=== PATIENT | female | born 1950 | race Asian ===

== ENCOUNTER 2020-03-17 13:46 | Outpatient (REF) | payer MEDICARE, OTHER, SELFPAY ==
[2020-03-17 16:32] LABS: MANUAL DIFF FLAG NO
[2020-03-17 16:46] LABS: Iron 231 mcg/dL (30-160); Total Iron Binding Capacity < 248 mcg/dL (228-428); Unsaturated Iron Binding < 17 ug/dL
[2020-03-17 16:49] LABS: Basophils Absolute Auto 0.1 X10*3/uL (0.0-0.2); Basophils Percent Auto 1.6 % (0-2); Eosinophils Absolute Auto 0.3 X10*3/uL (0.0-0.4); Eosinophils Percent Auto 5.3 % (0-4); Hemoglobin 9.9 g/dl (12.0-16.0); Imm Gran Abs Auto 0.02 X10*3/uL (0.00-0.03); Imm Gran Pct Auto 0.4 % (0.0-0.4); Lymphocytes Absolute Auto 1.4 X10*3/uL (1.2-4.9); Lymphocytes Percent Auto 26.6 % (20-40); Mean Corpuscular HGB Conc 32.8 g/dl (31.0-35.0); Mean Corpuscular Hemoglobin 35.9 pg (27.0-33.0); Mean Corpuscular Volume 109.4 fL (80-98); Mean Platelet Volume 11.1 fL (9.4-12.3); Monocytes Absolute Auto 0.5 X10*3/uL (0.1-1.2); Neutrophils Absolute Auto 2.9 X10*3/uL (2.0-8.3); Neutrophils Percent Auto 57.1 % (45-73); Platelet Count 104 X10*3/uL (160-400); Red Blood Count 2.76 X10*6/uL (4.20-5.50); Red Cell Distribution Width 15.8 % (11.0-16.0); White Blood Count 5.1 X10*3/uL (4.8-10.8)
[2020-03-17 16:50] LABS: Hematocrit 30.2 % (37-47)
[2020-03-17 17:17] LABS: Ferritin 526 ng/mL (10-250)
== END 2020-03-17 13:47 | disposition home or self-care (01) ==
LOC: HO.HMGCLDS 13:46
PROVIDERS: PCP Nurse Practitioner Family; Visit Provider Nurse Practitioner Family
DX: D64.9 Anemia, unspecified (principal)
CPT/HCPCS: 36415; 82728; 83540; 85025

== ENCOUNTER → 2020-06-26 10:18 | Outpatient (BNVA) | payer MEDICARE, OTHER, SELFPAY | PROVIDERS: PCP Nurse Practitioner Family; Visit Provider Internal Medicine Gastroenterology | DX: Z76.89 Persons encountering health services in other specified circumstances (principal) | CPT/HCPCS: 99212 ==

== ENCOUNTER 2020-06-27 14:58 | Inpatient (IN) | payer MEDICARE, OTHER, SELFPAY ==
--- NOTE | 2020-06-27 11:38 | US_ITS ---
EXAMINATION: US ABDOMEN COMPLETE CLINICAL INFORMATION: Cirrhosis. COMPARISON: Previous CT of the abdomen and pelvis December 2019, abdominal ultrasound November 2019 and MRI May 2018 TECHNIQUE: Real-time imaging of the abdominal viscera. FINDINGS: PANCREAS: Not well visualized due to bowel gas ABDOMINAL AORTA: The proximal segment is normal in caliber. The mid and distal segments are not well visualized due to bowel gas INFERIOR VENA CAVA: Visualized portions are normal. LIVER: The liver appears cirrhotic. The liver is small with increased heterogeneous liver echotexture and lobulated contour. No focal liver lesion is seen. No flow is seen in the main portal vein. GALLBLADDER: The gallbladder is enlarged. The gallbladder wall is slightly thickened measuring 0.4 cm. There is sludge or small gallstones in the gallbladder. This is similar to previous exams. COMMON BILE DUCT: Normal in caliber measuring 0.8 cm in diameter. RIGHT KIDNEY: Normal. No hydronephrosis. No renal calculi or focal parenchymal lesions. The kidney measures 12.3 cm in maximum dimension. LEFT KIDNEY: There are peripelvic cysts. No hydronephrosis. No renal calculi or mass. The kidney measures 11.3 cm in maximum dimension. SPLEEN: Upper normal in size The spleen measures 12.5 cm in maximum dimension. FREE FLUID: There is a small amount of ascites seen around the liver or a There are varices. US/US abdomen complete IMPRESSION: Cirrhotic-appearing liver. No focal liver lesion seen. Small amount of ascites. Dedicated Doppler exam was not performed however no flow is seen in the main portal vein. Distended gallbladder with small amount of sludge or small stones and mild gallbladder wall thickening. This is similar to previous exams. Limited utilization of the pancreas and aorta. Left renal peripelvic cysts.
[2020-06-27 14:52] LABS: Ammonia 70 umol/L (13-55)
[2020-06-27 15:01] LABS: MANUAL DIFF FLAG NO
[2020-06-27 15:16] LABS: Basophils Absolute Auto 0.1 X10*3/uL (0.0-0.2); Basophils Percent Auto 1.2 % (0-2); Eosinophils Absolute Auto 0.1 X10*3/uL (0.0-0.4); Eosinophils Percent Auto 1.6 % (0-4); Hematocrit 31.4 % (37-47); Hemoglobin 10.2 g/dl (12.0-16.0); Imm Gran Abs Auto 0.03 X10*3/uL (0.00-0.03); Imm Gran Pct Auto 0.4 % (0.0-0.4); Lymphocytes Absolute Auto 1.4 X10*3/uL (1.2-4.9); Lymphocytes Percent Auto 20.5 % (20-40); Mean Corpuscular HGB Conc 32.5 g/dl (31.0-35.0); Mean Corpuscular Hemoglobin 35.7 pg (27.0-33.0); Mean Corpuscular Volume 109.8 fL (80-98); Mean Platelet Volume 10.1 fL (9.4-12.3); Monocytes Absolute Auto 0.9 X10*3/uL (0.1-1.2); Monocytes Percent Auto 12.8 % (2-11); Neutrophils Absolute Auto 4.3 X10*3/uL (2.0-8.3); Neutrophils Percent Auto 63.5 % (45-73); Platelet Count 121 X10*3/uL (160-400); Red Blood Count 2.86 X10*6/uL (4.20-5.50); Red Cell Distribution Width 15.3 % (11.0-16.0); White Blood Count 6.7 X10*3/uL (4.8-10.8)
[2020-06-27 15:43] LABS: Alanine Aminotransferase 33 U/L (0-31); Albumin Level 2.2 g/dL (3.5-5.0); Alkaline Phosphatase 130 U/L (39-117); Anion Gap 12 (12-20); Aspartate Amino Transferase 74 U/L (5-31); Bilirubin Total 5.9 mg/dL (0.0-1.0); Blood Urea Nitrogen 16 mg/dL (9-16); Calcium 7.9 mg/dL (8.4-10.2); Carbon Dioxide 27 mmol/L (22-29); Chloride 105 mmol/L (96-108); Estimated Glomerular Filt Rate > 60; Glucose Fasting 96 mg/dL (60-99); Sodium 140 mmol/L (135-145); Total Protein 6.7 g/dL (6.5-8.0)
[2020-06-27 16:00] LABS: Vitamin D 25-OH Total 12.9 ng/mL (>30)
[2020-06-27 16:03] LABS: TSH reflex Free T4 1.33 mIU/mL (0.32-4.0)
[2020-06-27 16:44] LABS: Folate 14.3 ng/mL (> or = 4.0); Vitamin B12 > 2000 pg/mL (200-900)
[2020-06-27 16:54] VITALS: BP 122/50; PULSE 93; RESP 18; TEMP 36.9; O2SAT 99
--- NOTE | 2020-06-27 17:16 | XR_ITS ---
EXAMINATION: XR CHEST CLINICAL INFORMATION: Rule out pulmonary edema COMPARISON: 02/20/2020 TECHNIQUE: Frontal view of the chest was obtained. FINDINGS: Lung volumes are decreased from the prior study. There is mild interstitial prominence. No pleural effusion. Cardiomediastinal silhouette unchanged. Degenerative changes of the shoulders. XR/XR chest 1V IMPRESSION: Lung volumes are decreased from the prior study. There is mildly increased interstitial prominence which could reflect bronchovascular crowding or pulmonary venous hypertension. Viral interstitial pneumonitis could be considered in the appropriate clinical setting.
--- NOTE | 2020-06-27 17:18 | ED_ITS ---
HPI - General Adult General Chief complaint: Abdominal Pain Time Seen by Provider: 06/27/20 16:40 Source: patient Mode of arrival: ambulatory Limitations: no limitations History of Present Illness HPI narrative: Patient comes to emergency room by private vehicle, patient was asked by her technical sales manager Dr. Zimmerman, to come to the emergency room. Yesterday, patient had an appoint with Dr. Zimmerman, this morning an ultrasound of the liver was done (Abdominal US showed: Cirrhotic-appearing liver. No focal liver lesion seen. Small amount of ascites. Dedicated Doppler exam was not performed however no flow is seen in the main portal vein. Distended gallbladder with small amount of sludge or small stones and mild gallbladder wall thickening. This is similar to previous exams. Limited utilization of the pancreas and aorta. Left renal peripelvic cysts.) It was noted during the ultrasound that the patient seemed lethargic, weak and therefore sent to the emergency room for further evaluation and treatment. Pat ient states that she feels weak, has diffuse abdominal pain, states it is worse when she drinks or eats. Patient states starting in May of 2020, she has noticed that her legs have been getting swollen, patient has already been prescribed Lasix. Patient has right upper extremity chronic swelling, patient states is secondary due to mastectomy. MD complaint: Abdominal pain, lower extremity swelling Related Data Home Medications Medication Instructions Recorded Confirmed cholecalciferol (vitamin D3) 25 25 mcg PO DAILY 06/26/20 06/26/20 mcg (1,000 unit) tablet mecobalamin (vitamin B12) 1,000 1,000 mcg PO DAILY 06/26/20 06/26/20 mcg chewable tablet multivitamin 1 tab PO DAILY 06/26/20 06/26/20 Previous Rx's Medication Instructions Recorded furosemide 20 mg tablet 20 mg PO QAM 30 Days #60 tab 06/26/20 polyethylene glycol 3350 17 17 g PO DAILY 30 Days #510 g 06/26/20 gram/dose oral powder spironolactone 50 mg tablet 50 mg PO QAM 30 Days #30 tab 06/26/20 Allergies Allergy/AdvReac Type Severity Reaction Status Date / Time Sulfa (Sulfonamide Allergy Unknown UNKNOWN Unverified 06/26/20 10:30 Antibiotics) [SULFA (SULFONAMIDE ANTIBIOTICS)] Omeprazole Allergy Unknown Coughing Uncoded 06/26/20 10:30 steroids Allergy Unknown hallucinations, Uncoded 06/26/20 10:30 mouth sores STEROIDS AdvReac Severe HALLUCINATI Uncoded 06/26/20 10:30 ONS/NAUSEA/ DIZZINESS Certain chemo medication AdvReac Unknown Hospitalize Uncoded 06/26/20 10:30 d Review of Systems Review of Systems: Constitutional : Denies fever or chills, complaining of generalized weakness, no malaise ENT/Mouth : No Hearing loss, No Ear Pain, No Nasal Congestion, No Sinus Pain, No Hoarseness, No sore throat, No Rhinorrhea, No Swallowing Difficulty Eyes: No Eye Pain, No Swelling, No Redness, No Foreign Body, No Discharge, No Vision Changes Cardiovascular : No Chest Pain, No SOB, No Dyspnea on Exertion, No Orthopnea, No Edema, No Palpitations Respiratory : No Cough, No Sputum, No Wheezing, No Smoke Exposure, No Dyspnea Gastrointestinal : No Nausea, No Vomiting, No Diarrhea, complaining of constipation, diffuse abdominal discomfort, occasionally feeling sharp pains Genitourinary : No Dysuria, No Urinary Frequency, No Hematuria, No Urinary Incontinence, No Urgency, No Flank Pain, No Urinary Flow Changes, No Hesitancy Musculoskeletal : No joint pain, No Myalgias, No Joint Swelling Skin : No Skin Lesions, No rash Neuro : No Weakness, No Numbness, No Paresthesias, No Loss of Consciousness, No Dizziness, No Headache Psych : No Anxiety/Panic, No Depression, No SI/HI/AH/VH, No Social Issues, Heme/Lymph: No Bruising, No Bleeding,No Lymphadenopathy Endocrine : No Polyuria, No Polydipsia, No Temperature Intolerance [facility] Past Medical History Medical History (Updated 06/27/20 @ 22:30 by Bouchra Mancilla MD) Cirrhosis of liver Surgical History History of esophagogastroduodenoscopy (EGD) Hx of colonoscopy Hx of right mastectomy Family History Family History (Updated 06/26/20 @ 10:36 by MELO Mcnally) Father No problems noted. Mother History of renal pelvis cancer Brother No problems noted. Sister No problems noted. Son No problems noted. Daughter No problems noted. Social History Social History (Updated 06/26/20 @ 10:37 by MELO Mcnally) Household Members: Spouse Alcohol intake: never Smoking Status: Never smoker Current occupational status: retired Physical Exam Vital Signs: Vital Signs: Last Vital Signs Temp 97.9 F 06/27/20 21:49 Pulse 92 06/27/20 21:49 Resp 18 06/27/20 21:49 BP 128/47 L 06/27/20 21:49 Pulse Ox 92 06/27/20 21:49 Body Mass Index 38.5 Appearance: Alert. Oriented X3. No acute distress. Seems fatigued Eyes: Pupils equal, round and reactive to light. ENT: Pharynx normal. Neck: Normal inspection. Neck supple. No lymph nodes noted. No crepitus CVS: Normal heart rate and rhythm. Pulses normal. Normal S1 and S2 Respiratory: No respiratory distress. Breath sounds normal. No Wheezing. No rales Abdomen: Soft , diffuse abdominal tenderness to deep palpation, negative Moreno sign, mild to moderate abdominal distension Skin: Skin warm and dry. Normal skin color. Normal skin turgor. Extremities: +3 bilateral lower extremity edema from the feet to the knees Neuro: Oriented X 3. No motor deficit. No sensory deficit. Moving all e xtermities. No slurred speech. Course Course Course Narrative: Patient has a lactic acid of 2.1, white blood cell count is within normal limits, patient's elevated lactic acid is likely secondary to h epatic pathology rather than sepsis. Dr. Zimmerman is at bedside with the patient, CT scan is still pending. I will touch base with Dr. Zimmerman once we have the results. Patient will need oral lactulose for constipation and for elevated ammonia. There is a suspicion for portal vein thrombosis. CT scan results show chronic portal vein thrombosis, I discussed the CT scan findings and the patient with Dr. Zimmerman, at this time, anticoagulation is not recommended. Patient will be admitted. I discussed the patient with Dr. Vázquez. Recommendations the patient is with diuretics lactulose, have a [place] [facility] paracentesis, cardiology consult for elevated BNP and echocardiogram. Medical Decision Making Lab Data Result diagrams: 06/27/20 14:35 06/27/20 14:35 Labs: Lab Results 06/27/20 06/27/20 06/27/20 Range/Units 14:34 14:35 14:35 WBC 6.7 (4.8-10.8) X10*3/uL RBC 2.86 L (4.20-5.50) X10*6/uL Hgb 10.2 L (12.0-16.0) g/dl Hct 31.4 L (37-47) % MCV 109.8 H (80-98) fL MCH 35.7 H (27.0-33.0) pg MCHC 32.5 (31.0-35.0) g/dl RDW 15.3 (11.0-16.0) % Plt Count 121 L (160-400) X10*3/uL MPV 10.1 (9.4-12.3) fL Immature Gran % (Auto) 0.4 (0.0-0.4) % Neut % (Auto) 63.5 (45-73) % Lymph % (Auto) 20.5 (20-40) % Cross % (Auto) 12.8 H (2-11) % Eos % (Auto) 1.6 (0-4) % Baso % (Auto) 1.2 (0-2) % Lymph # (Auto) 1.4 (1.2-4.9) X10*3/uL Cross # (Auto) 0.9 (0.1-1.2) X10*3/uL Eos # (Auto) 0.1 (0.0-0.4) X10*3/uL Baso # (Auto) 0.1 (0.0-0.2) X10*3/uL Abs Immat Gran (auto) 0.03 (0.00-0.03) X10*3/uL Absolute Neuts (auto) 4.3 (2.0-8.3) X10*3/uL Absolute Nucleated RBC 0.000 (0.0-0.012) X10*3/uL Nucleated RBC % (auto) 0.0 (0.0-0.2) /100WBC PT (10.8-13.0) SEC INR (0.9-1.1) Sodium 140 (135-145) mmol/L Potassium 4.0 (3.3-5.1) mmol/l Chloride 105 (96-108) mmol/L Carbon Dioxide 27 (22-29) mmol/L Anion Gap 12 (12-20) BUN 16 (9-16) mg/dL Creatinine 0.84 (0.5-1.4) mg/dL Estim Creat Clear Calc TNP Estimated GFR > 60 Random Glucose TNP Fasting Glucose 96 (60-99) mg/dL Lactic Acid (0.5-2.0) mmol/L Lactic Acid Fup @ 2Hr (0.5-2.0) mmol/L Calcium 7.9 L (8.4-10.2) mg/dL Total Bilirubin 5.9 H (0.0-1.0) mg/dL AST 74 H (5-31) U/L ALT 33 H (0-31) U/L Alkaline Phosphatase 130 H D (39-117) U/L Ammonia 70 H (13-55) umol/L B-Natriuretic Peptide (<100) pg/mL Total Protein 6.7 (6.5-8.0) g/dL Albumin 2.2 L (3.5-5.0) g/dL Vitamin B12 (200-900) pg/mL 25-OH Vitamin D Total (>30) ng/mL Folate (> or = 4.0) ng/mL TSH 1.33 (0.32-4.0) mIU/mL COVID-19 ([facility]) (Negative) COVID-19 Clin Com 06/27/20 06/27/20 06/27/20 Range/Units 14:35 14:35 17:35 WBC (4.8-10.8) X10*3/uL RBC (4.20-5.50) X10*6/uL Hgb (12.0-16.0) g/dl Hct (37-47) % MCV (80-98) fL MCH (27.0-33.0) pg MCHC (31.0-35.0) g/dl RDW (11.0-16.0) % Plt Count (160-400) X10*3/uL MPV (9.4-12.3) fL Immature Gran % (Auto) (0.0-0.4) % Neut % (Auto) (45-73) % Lymph % (Auto) (20-40) % Cross % (Auto) (2-11) % Eos % (Auto) (0-4) % Baso % (Auto) (0-2) % Lymph # (Auto) (1.2-4.9) X10*3/uL Cross # (Auto) (0.1-1.2) X10*3/uL Eos # (Auto) (0.0-0.4) X10*3/uL Baso # (Auto) (0.0-0.2) X10*3/uL Abs Immat Gran (auto) (0.00-0.03) X10*3/uL Absolute Neuts (auto) (2.0-8.3) X10*3/uL Absolute Nucleated RBC (0.0-0.012) X10*3/uL Nucleated RBC % (auto) (0.0-0.2) /100WBC PT 27.2 H (10.8-13.0) SEC INR 2.3 H (0.9-1.1) Sodium (135-145) mmol/L Potassium (3.3-5.1) mmol/l Chloride (96-108) mmol/L Carbon Dioxide (22-29) mmol/L Anion Gap (12-20) BUN (9-16) mg/dL Creatinine (0.5-1.4) mg/dL Estim Creat Clear Calc Estimated GFR Random Glucose Fasting Glucose (60-99) mg/dL Lactic Acid (0.5-2.0) mmol/L Lactic Acid Fup @ 2Hr (0.5-2.0) mmol/L Calcium (8.4-10.2) mg/dL Total Bilirubin (0.0-1.0) mg/dL AST (5-31) U/L ALT (0-31) U/L Alkaline Phosphatase (39-117) U/L Ammonia (13-55) umol/L B-Natriuretic Peptide (<100) pg/mL Total Protein (6.5-8.0) g/dL Albumin (3.5-5.0) g/dL Vitamin B12 > 2000 H (200-900) pg/mL 25-OH Vitamin D Total 12.9 (>30) ng/mL Folate 14.3 (> or = 4.0) ng/mL TSH (0.32-4.0) mIU/mL COVID-19 ([facility]) (Negative) COVID-19 Clin Com 06/27/20 06/27/20 06/27/20 Range/Units 17:35 17:35 17:35 WBC (4.8-10.8) X10*3/uL RBC (4.20-5.50) X10*6/uL Hgb (12.0-16.0) g/dl Hct (37-47) % MCV (80-98) fL MCH (27.0-33.0) pg MCHC (31.0-35.0) g/dl RDW (11.0-16.0) % Plt Count (160-400) X10*3/uL MPV (9.4-12.3) fL Immature Gran % (Auto) (0.0-0.4) % Neut % (Auto) (45-73) % Lymph % (Auto) (20-40) % Cross % (Auto) (2-11) % Eos % (Auto) (0-4) % Baso % (Auto) (0-2) % Lymph # (Auto) (1.2-4.9) X10*3/uL Cross # (Auto) (0.1-1.2) X10*3/uL Eos # (Auto) (0.0-0.4) X10*3/uL Baso # (Auto) (0.0-0.2) X10*3/uL Abs Immat Gran (auto) (0.00-0.03) X10*3/uL Absolute Neuts (auto) (2.0-8.3) X10*3/uL Absolute Nucleated RBC (0.0-0.012) X10*3/uL Nucleated RBC % (auto) (0.0-0.2) /100WBC PT (10.8-13.0) SEC INR (0.9-1.1) Sodium (135-145) mmol/L Potassium (3.3-5.1) mmol/l Chloride (96-108) mmol/L Carbon Dioxide (22-29) mmol/L Anion Gap (12-20) BUN (9-16) mg/dL Creatinine (0.5-1.4) mg/dL Estim Creat Clear Calc Estimated GFR Random Glucose Fasting Glucose (60-99) mg/dL Lactic Acid 2.1 H* (0.5-2.0) mmol/L Lactic Acid Fup @ 2Hr (0.5-2.0) mmol/L Calcium (8.4-10.2) mg/dL Total Bilirubin (0.0-1.0) mg/dL AST (5-31) U/L ALT (0-31) U/L Alkaline Phosphatase (39-117) U/L Ammonia (13-55) umol/L B-Natriuretic Peptide 135 H (<100) pg/mL Total Protein (6.5-8.0) g/dL Albumin (3.5-5.0) g/dL Vitamin B12 (200-900) pg/mL 25-OH Vitamin D Total (>30) ng/mL Folate (> or = 4.0) ng/mL TSH (0.32-4.0) mIU/mL COVID-19 ([facility]) Negative (Negative) COVID-19 Clin Com See Note 06/27/20 Range/Units 20:24 WBC (4.8-10.8) X10*3/uL RBC (4.20-5.50) X10*6/uL Hgb (12.0-16.0) g/dl Hct (37-47) % MCV (80-98) fL MCH (27.0-33.0) pg MCHC (31.0-35.0) g/dl RDW (11.0-16.0) % Plt Count (160-400) X10*3/uL MPV (9.4-12.3) fL Immature Gran % (Auto) (0.0-0.4) % Neut % (Auto) (45-73) % Lymph % (Auto) (20-40) % Cross % (Auto) (2-11) % Eos % (Auto) (0-4) % Baso % (Auto) (0-2) % Lymph # (Auto) (1.2-4.9) X10*3/uL Cross # (Auto) (0.1-1.2) X10*3/uL Eos # (Auto) (0.0-0.4) X10*3/uL Baso # (Auto) (0.0-0.2) X10*3/uL Abs Immat Gran (auto) (0.00-0.03) X10*3/uL Absolute Neuts (auto) (2.0-8.3) X10*3/uL Absolute Nucleated RBC (0.0-0.012) X10*3/uL Nucleated RBC % (auto) (0.0-0.2) /100WBC PT (10.8-13.0) SEC INR (0.9-1.1) Sodium (135-145) mmol/L Potassium (3.3-5.1) mmol/l Chloride (96-108) mmol/L Carbon Dioxide (22-29) mmol/L Anion Gap (12-20) BUN (9-16) mg/dL Creatinine (0.5-1.4) mg/dL Estim Creat Clear Calc Estimated GFR Random Glucose Fasting Glucose (60-99) mg/dL Lactic Acid (0.5-2.0) mmol/L Lactic Acid Fup @ 2Hr 1.3 (0.5-2.0) mmol/L Calcium (8.4-10.2) mg/dL Total Bilirubin (0.0-1.0) mg/dL AST (5-31) U/L ALT (0-31) U/L Alkaline Phosphatase (39-117) U/L Ammonia (13-55) umol/L B-Natriuretic Peptide (<100) pg/mL Total Protein (6.5-8.0) g/dL Albumin (3.5-5.0) g/dL Vitamin B12 (200-900) pg/mL 25-OH Vitamin D Total (>30) ng/mL Folate (> or = 4.0) ng/mL TSH (0.32-4.0) mIU/mL COVID-19 ([facility]) (Negative) COVID-19 Clin Com Imaging Data Chest x-ray: Radiologist's impression: FINDINGS: Lung volumes are decreased from the prior study. There is mild interstitial prominence. No pleural effusion. Cardiomediastinal silhouette unchanged. Degenerative changes of the shoulders. XR/XR chest 1V IMPRESSION: Lung volumes are decreased from the prior study. There is mildly increased interstitial prominence which could reflect bronchovascular crowding or pulmonary venous hypertension. Viral interstitial pneumonitis could be considered in the appropriate clinical setting. Discharge Plan Discharge Clinical Impression: Portal vein thrombosis CHF (congestive heart failure) Qualifiers: Heart failure type: unspecified Heart failure chronicity: unspecified Qualified Code(s): I50.9 - Heart failure, unspecified Patient Disposition: Admitted As Inpatient
[2020-06-27 17:20] VITALS: BP 122/49; PULSE 88; RESP 18; TEMP 36.9; O2SAT 98; BMI 38.5
--- NOTE | 2020-06-27 17:44 | CT_ITS ---
EXAMINATION: CT ABDOMEN AND PELVIS WITH CONTRAST CLINICAL INFORMATION: Rule out portal vein thrombosis. COMPARISON: Ultrasound earlier today. Noncontrast CT 12/19/2019 TECHNIQUE: Multidetector volumetric images were obtained from the superior aspect of the liver through the pubic symphysis following administration 85 mL of Omnipaque 350 intravenous contrast. Sagittal and coronal reformatted images were obtained on the technologist's workstation. Oral contrast: No This CT examination was performed using dose optimization techniques as appropriate, variously including the following: *Automated exposure control *Adjustment of mA and/or kV according to patient size (this includes techniques or standardized protocols for targeted exams where dose is matched to indication/reason for exam; i.e. extremities or head) *Use of iterative reconstruction technique DLP: 869 mGy-cm FINDINGS: LUNG BASES: Small right, trace left pleural effusions and associated atelectasis. LIVER, GALLBLADDER, AND BILIARY TREE: The liver is shrunken with a nodular contour consistent with cirrhosis. The gallbladder is significantly distended. Tiny dependent gallstones are present. Although there is a contrast opacified vessel in the willard hepatis which could represent the main portal vein, there are additional varices present. Moreover, the main portal vein is actually smaller in caliber than the left portal vein. The appearance suggests cavernous transformation of the portal vein from chronic portal vein thrombosis; the contrast opacified vessel in the willard hepatis may represent a prominent collateral rather than the main portal vein. There are no contrast-enhanced CT or MRI exams available to confirm the acuity of this. There is a tiny 5 mm cyst along the lateral periphery of the right lower lobe, present previously. PANCREAS: Unremarkable. SPLEEN: Unremarkable. ADRENAL GLANDS: Unremarkable. KIDNEYS AND URETERS: Likely bilateral renal parapelvic cysts. Symmetric bilateral renal enhancement. BLADDER: Unremarkable. GASTROINTESTINAL TRACT: There is wall thickening of the distal esophagus likely due to underdistention. Stomach and small bowel are nondilated. There is wall thickening of the right colon likely due to portal colopathy. ABDOMINAL WALL: Severe diffuse anasarca there is a left periumbilical hernia containing fluid and fat. LYMPH NODES: Normal. VASCULAR: Extensive varices are present. There are innumerable splenic varices and a likely splenorenal shunt. There are paraesophageal and gastric varices. There are varices in the anterior omentum. Moderate volume of ascites is present. PELVIC VISCERA: The uterus and adnexa are unremarkable. OSSEOUS STRUCTURES: Unremarkable. CT/CT abdomen pelvis w con IMPRESSION: Shrunken, nodular liver suggesting cirrhosis. There are extensive varices with innumerable splenic varices and a likely splenorenal shunt. There are paraesophageal, gastric, and abdominal varices. Although there is a contrast opacified vessel in the willard hepatis which could represent the main portal vein, there are additional varices present. Moreover, the main portal vein is actually smaller in caliber than the left portal vein. The appearance suggests cavernous transformation of the portal vein from chronic portal vein thrombosis; the contrast opacified vessel in the willard hepatis may represent a prominent collateral rather than the main portal vein. There are no contrast-enhanced CT or MRI exams available to confirm the acuity of this. Moderate ascites. Pleural effusions. Anasarca.
[2020-06-27 17:49] LABS: INTERNATIONAL NORM RATIO 2.3 (0.9-1.1); Prothrombin Time 27.2 SEC (10.8-13.0)
[2020-06-27 18:05] LABS: COVID-19 Test Negative (Negative)
[2020-06-27 18:11] LABS: B Type Natriuretic Peptide 135 pg/mL (<100)
[2020-06-27 18:20] LABS: Lactic Acid 2.1 mmol/L (0.5-2.0)
[2020-06-27 19:12] VITALS: BP 127/51; PULSE 87; RESP 16; TEMP 36.6; O2SAT 98
[2020-06-27] MEDS: 0.9 % Sodium Chloride 1,000 ML 200 ML IVCONT (19:18)
[2020-06-27 19:40] LABS: Reflex Lactate? Lactic Acid Added
[2020-06-27 20:53] LABS: ~Lactic Acid-LAB USE ONLY 1.3 mmol/L (0.5-2.0)
[2020-06-27] MEDS: Diatrizoate Meglumine, Sodium 30 ML SOLUTION PO (20:53)
[2020-06-27] MEDS: iohexoL 350 MG/ML 100 ML INFUS..BTL IV (20:53)
[2020-06-27 21:49] VITALS: BP 128/47; PULSE 92; RESP 18; TEMP 36.6; O2SAT 92
[2020-06-27] MEDS: Furosemide 40 MG/4 ML VIAL IVPUSH (23:02)
--- NOTE | 2020-06-27 23:15 | PC.NURSE ---
ASSUMED CARE OF PT. PT AWAITING FOR ROOM ASSIGNMENT. WILL CONTINUE TO MONITOR PT.
[2020-06-28] VITALS (8 sets, daily range): BP systolic 126–143; BP diastolic 50–67; PULSE 84–94; RESP 16–21; TEMP 36.5–37.1; O2SAT 96–98
--- NOTE | 2020-06-28 01:27 | PC.NURSE ---
ASSUMED CARE OF PT. PT RESTING IN STRETCHER IN NAD. PT REMAINS ALERT, RESPIRATIONS EASY, N/L. SKIN W/D. PT AWAITING FURTHER ORDERS FOR ADMISSION. PT DENIES ANY COMPLAINTS AT THIS FABIAN.
--- NOTE | 2020-06-28 03:35 | PC.NURSE ---
PT AWAITING FOR ROOM ASSIGNMENT. PT UP TO RESTROOM WITH STEADY GAIT W/O ASSISTANCE, DENIES ANY COMPLAINTS, RESPIRATIONS EASY, N/L. SKIN W/D. WILL CONTINUE TO MONITOR PT.
--- NOTE | 2020-06-28 03:54 | PM.IMHP ---
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 She has cirrhosis and also had increasing leg edema and poor PO intake recently. Patient states she can barely keep sips of water down and hasn't eaten in several days. There was concern for portal vein thrombosis on ultrasound today so CT scan was done in ED which did suggest thrombosis in the portal vein. Per Dr Zimmerman it could be chronic so patient was not started on anticoagulation this evening. Patient feels constipated and has fatigue. Also noted mild dyspnea and poor PO intake. No vomiting but has nausea. No fevers or chills. Review of Systems Constitutional: Constitutional: Reports anorexia, Reports malaise and Reports poor appetite Eyes: Comments: No changes to her vision ENT: Comments: No difficulty swallowing Cardiovascular: Cardiovascular: Reports leg edema Comments: No chest pain Respiratory: Comments: Dyspnea noted, especially with activity. No cough. Gastrointestinal: Comments: nausea, constipation, increased abd girth all noted. Musculoskeletal: Musculoskeletal: Reports no additional musculoskeletal complaints Psychiatric: Comments: No anxiety Hematologic/Lymphatic: Comments: No bruising [facility] Medical History Cirrhosis of liver Family History Father No problems noted. Mother History of renal pelvis cancer Brother No problems noted. Sister No problems noted. Son No problems noted. Daughter No problems noted. Family history: reviewed and not pertinent Surgical History History of esophagogastroduodenoscopy (EGD) Hx of colonoscopy Hx of right mastectomy Social History Household Members: Spouse Alcohol intake: never Smoking Status: Never smoker Current occupational status: retired Meds Allergies Allergy/AdvReac Type Severity Reaction Status Date / Time Sulfa (Sulfonamide Allergy Unknown UNKNOWN Unverified 06/26/20 10:30 Antibiotics) [SULFA (SULFONAMIDE ANTIBIOTICS)] Omeprazole Allergy Unknown Coughing Uncoded 06/26/20 10:30 steroids Allergy Unknown hallucinations, Uncoded 06/26/20 10:30 mouth sores STEROIDS AdvReac Severe HALLUCINATI Uncoded 06/26/20 10:30 ONS/NAUSEA/ DIZZINESS Certain chemo medication AdvReac Unknown Hospitalize Uncoded 06/26/20 10:30 d Home Medications Medication Instructions Recorded Confirmed Type cholecalciferol (vitamin D3) 25 25 mcg PO DAILY 06/26/20 06/26/20 History mcg (1,000 unit) tablet mecobalamin (vitamin B12) 1,000 1,000 mcg PO DAILY 06/26/20 06/26/20 History mcg chewable tablet multivitamin 1 tab PO DAILY 06/26/20 06/26/20 History Physical Exam Vital Signs and Narrative: Vital Signs: Last Vital Signs Temp 98.3 F 06/28/20 02:00 Pulse 93 06/28/20 02:00 Resp 18 06/28/20 02:00 BP 131/62 06/28/20 02:00 Pulse Ox 96 06/28/20 02:00 Body Mass Index 38.5 Const: General: cooperative, no acute distress and tired appearing HENMT: Head: Yes normal to inspection Mouth: Normal oral and palatal mucosa present Eyes: Other: No scleral icterus. Neck: Other: Supple, no lymphadenopathy noted Resp: Other: Decreased breath sounds at lung bases bilaterally, no insp crackles or exp wheezes. Effort & Inspection: normal respiratory effort Cardio: Other: Systolic murmur 2/6 RUSB Rate: regular rate Rhythm: regular rhythm Heart sounds: S1 normal heart sound present and S2 normal heart sound present GI: Other: Abdomen soft, somewhat distended, no guarding or masses appreciated. No tense ascites. Auscultation: normal bowel sounds Skin: Other: No jaundice General skin exam: no rashes or lesions noted Neuro: Other: Does not appear confused. Seems fatigued but not lethargic. Extrem: Other: No asterixis. Legs have significant pitting edema bilaterally Psych: Other: Not agitated Results Labs CBC and Chem 7: 06/27/20 14:35 06/27/20 14:35 Labs: Laboratory Results - last 24 hr 06/27/20 06/27/20 06/27/20 14:34 14:35 14:35 MCV 109.8 H MCH 35.7 H MCHC 32.5 RDW 15.3 Plt Count 121 L MPV 10.1 Immature Gran % (Auto) 0.4 Neut % (Auto) 63.5 Lymph % (Auto) 20.5 [place] % (Auto) 12.8 H Eos % (Auto) 1.6 Baso % (Auto) 1.2 Lymph # (Auto) 1.4 [place] # (Auto) 0.9 Eos # (Auto) 0.1 Baso # (Auto) 0.1 Abs Immat Gran (auto) 0.03 Absolute Neuts (auto) 4.3 Absolute Nucleated RBC 0.000 Nucleated RBC % (auto) 0.0 PT INR Anion Gap 12 Estim Creat Clear Calc TNP Estimated GFR > 60 Random Glucose TNP Fasting Glucose 96 Lactic Acid Lactic Acid Fup @ 2Hr Calcium 7.9 L Total Bilirubin 5.9 H AST 74 H ALT 33 H Alkaline Phosphatase 130 H D Ammonia 70 H B-Natriuretic Peptide Total Protein 6.7 Albumin 2.2 L Vitamin B12 25-OH Vitamin D Total Folate TSH 1.33 COVID-19 (JAS) COVID-Dodreams 06/27/20 06/27/20 06/27/20 14:35 14:35 17:35 MCV MCH MCHC RDW Plt Count MPV Immature Gran % (Auto) Neut % (Auto) Lymph % (Auto) [place] % (Auto) Eos % (Auto) Baso % (Auto) Lymph # (Auto) [place] # (Auto) Eos # (Auto) Baso # (Auto) Abs Immat Gran (auto) Absolute Neuts (auto) Absolute Nucleated RBC Nucleated RBC % (auto) PT 27.2 H INR 2.3 H Anion Gap Estim Creat Clear Calc Estimated GFR Random Glucose Fasting Glucose Lactic Acid Lactic Acid Fup @ 2Hr Calcium Total Bilirubin AST ALT Alkaline Phosphatase Ammonia B-Natriuretic Peptide Total Protein Albumin Vitamin B12 > 2000 H 25-OH Vitamin D Total 12.9 Folate 14.3 TSH COVID-19 (JAS) COVID-Dodreams 06/27/20 06/27/20 06/27/20 17:35 17:35 17:35 MCV MCH MCHC RDW Plt Count MPV Immature Gran % (Auto) Neut % (Auto) Lymph % (Auto) [place] % (Auto) Eos % (Auto) Baso % (Auto) Lymph # (Auto) [place] # (Auto) Eos # (Auto) Baso # (Auto) Abs Immat Gran (auto) Absolute Neuts (auto) Absolute Nucleated RBC Nucleated RBC % (auto) PT INR Anion Gap Estim Creat Clear Calc Estimated GFR Random Glucose Fasting Glucose Lactic Acid 2.1 H* Lactic Acid Fup @ 2Hr Calcium Total Bilirubin AST ALT Alkaline Phosphatase Ammonia B-Natriuretic Peptide 135 H Total Protein Albumin Vitamin B12 25-OH Vitamin D Total Folate TSH COVID-19 (JAS) Negative COVID-19 Clin Com See Note 06/27/20 20:24 MCV MCH MCHC RDW Plt Count MPV Immature Gran % (Auto) Neut % (Auto) Lymph % (Auto) [place] % (Auto) Eos % (Auto) Baso % (Auto) Lymph # (Auto) [place] # (Auto) Eos # (Auto) Baso # (Auto) Abs Immat Gran (auto) Absolute Neuts (auto) Absolute Nucleated RBC Nucleated RBC % (auto) PT INR Anion Gap Estim Creat Clear Calc Estimated GFR Random Glucose Fasting Glucose Lactic Acid Lactic Acid Fup @ 2Hr 1.3 Calcium Total Bilirubin AST ALT Alkaline Phosphatase Ammonia B-Natriuretic Peptide Total Protein Albumin Vitamin B12 25-OH Vitamin D Total Folate TSH COVID-19 (JAS) COVID-19 Clin Com Imaging Radiologist's Impressions: Impressions Abdomen Ultrasound 06/27/20 11:38 IMPRESSION: Cirrhotic-appearing liver. No focal liver lesion seen. Small amount of ascites. Dedicated Doppler exam was not performed however no flow is seen in the main portal vein. Distended gallbladder with small amount of sludge or small stones and mild gallbladder wall thickening. This is similar to previous exams. Limited utilization of the pancreas and aorta. Left renal peripelvic cysts. Chest X-Ray 06/27/20 17:16 IMPRESSION: Lung volumes are decreased from the prior study. There is mildly increased interstitial prominence which could reflect bronchovascular crowding or pulmonary venous hypertension. Viral interstitial pneumonitis could be considered in the appropriate clinical setting. Abdomen/Pelvis CT 06/27/20 17:44 IMPRESSION: Shrunken, nodular liver suggesting cirrhosis. There are extensive varices with innumerable splenic varices and a likely splenorenal shunt. There are paraesophageal, gastric, and abdominal varices. Although there is a contrast opacified vessel in the willard hepatis which could represent the main portal vein, there are additional varices present. Moreover, the main portal vein is actually smaller in caliber than the left portal vein. The appearance suggests cavernous transformation of the portal vein from chronic portal vein thrombosis; the contrast opacified vessel in the willard hepatis may represent a prominent collateral rather than the main portal vein. There are no contrast-enhanced CT or MRI exams available to confirm the acuity of this. Moderate ascites. Pleural effusions. Anasarca. Assessment and Plan (1) Cirrhosis of liver without ascites: Status: Acute (2) Portal vein thrombosis: Status: Acute (3) CHF (congestive heart failure): Qualifiers: Heart failure chronicity: unspecified Heart failure type: unspecified Qualified Code(s): I50.9 - Heart failure, unspecified Status: Acute 70 year old woman with cirrhosis presented with increasing leg edema, fatigue and abd girth with poor PO intake. Concern for portal vein thrombosis and possible volume overload/CHF with the leg edema. Cirrhosis, portal vein thrombosis. Discussed with Dr Zimmerman. Will consult her formally for GI input. Plan to order ultrasound guided paracentesis for diagnostic reasons. Also order diuretics: Aldactone 50mg and Lasix 40mg IV. Per Dr Zimmerman no anticoagulation at this point. lactulose ordered. Leg edema, ?CHF Echo ordered and cardiology evaluation. DVT proph SC Lovenox Code status Full. Healthcare proxy is her sister Fei.
--- NOTE | 2020-06-28 04:23 | US_ITS ---
EXAMINATION: US ABDOMEN LIMITED CLINICAL INFORMATION: Cirrhosis and ascites. Paracentesis requested.. COMPARISON: Previous ultrasound and CT of the abdomen and pelvis from yesterday TECHNIQUE: Real-time imaging of the 4 quadrants FINDINGS: There is a very small amount of ascites, too small to safely perform paracentesis. Paracentesis not performed. Cirrhosis and distended gallbladder is noted. US/US abdomen limited IMPRESSION: Very small amount of ascites, too small to safely perform paracentesis.
--- NOTE | 2020-06-28 05:48 | PC.NURSE ---
PT SLEEPING IN STRETCHER, WAKES TO VERBAL STIMULI, RESPIRATIONS EASY, N/L SKIN W/D. WILL CONTINUE TO MONITOR PT.
--- NOTE | 2020-06-28 07:41 | PC.NURSE ---
pt sleeping in stretcher at this time.
--- NOTE | 2020-06-28 08:12 | P.CNGI_ITS ---
History of Present Illness Data of Consult Service Date: 06/28/20 Requesting physician: Lex Vázquez I Primary Care Provider: Alex aLu [facility] Reason for consult: decompensated cirrhosis with PTV. 70 YEAR OLD [place] FEMALE FOLLOWED IN GI FOR CIRRHOSIS DUE TO AIH/MARTEL. Pt was seen in the GI clinic on 06/26/20 due to weakness, lethargy, abdominal bloating, decreased appetite with poor p.o. intake, constipation. An abdominal ultrasound was performed on 06/27/20 and was suspicious for portal vein thrombosis. Patient was advised to go to [facility] for further evaluation with abdominal CT scan and admission for management of above symptoms. She was diagnosed with autoimmune hepatitis in 2003 and was treated with azathioprine for a few years. She is status post surgery for breast cancer and sigmoid colectomy for sigmoid colon cancer in 2013 CHRONIC ILLNESSES: Fatty liver, Autoimmune hepatitis complicated by cirrhosis, Pyloric ulcer, Hx of breast cancer, Malignant neoplasm of colon, unspecified LABS IN [facility] : 12/23/19 CBC SHOWED HEMATOCRIT OF 30.7, MCV 107.7, PLATELET 92, INR 1.7 CREATININE 1.23, IRON STUDIES SHOWED % SATURATION OF 66, FERRITIN 150 - GENETIC SCREEN WAS NEGATIVE FOR HEMOCHROMATOSIS. ELEVATED LFTS WITH TOTAL BILIRUBIN OF 2.8, AST 145, ALT 53, ALKALINE PHOSPHATASE 116, albumin 2.2 06/2017 LIVER FIBROSIS SCORE OF 0.9, LIVER FIBROSIS STAGE F4, NECROINFLAMMATORY SCORE 0.20 CRP 3.46 IMAGING STUDIES: 06/27/20/ ABD CT SCAN SHOWED: Shrunken, nodular liver suggesting cirrhosis. There are extensive varices with innumerable splenic varices and a likely splenorenal shunt. There are paraesophageal, gastric, and abdominal varices. Although there is a contrast opacified vessel in the willard hepatis which could represent the main portal vein, there are additional varices present. Moreover, the main portal vein is actually smaller in caliber than the left portal vein. The appearance suggests cavernous transformation of the portal vein from chronic portal vein thrombosis; the contrast opacified vessel in the willard hepatis may represent a prominent collateral rather than the main portal vein. There are no contrast-enhanced CT or MRI exams available to confirm the acuity of this. Moderate ascites. Pleural effusions. Anasarca. 06/27/20 ABD US SHOWED: Cirrhotic-appearing liver. No focal liver lesion seen. Small amount of ascites. Dedicated Doppler exam was not performed however no flow is seen in the main portal vein. Distended gallbladder with small amount of sludge or small stones and mild gallbladder wall thickening. This is similar to previous exams. Limited utilization of the pancreas and aorta. Left renal peripelvic cysts. 05/30 ABDOMINAL MRI SHOWED: IMPRESSION: No gallstones. There is focal lenticular thickening along the posterior lateral gallbladder wall suggesting adherent sludge. This appears to correspond with the subtle finding seen on prior ultrasound as well. This is a somewhat unusual appearance but does not appear to be nodular or polypoid in nature. This difficult to define further on this noncontrast study. Nodular atrophic liver suggesting possibility of underlying cirrhosis. There is associated perisplenic varicosities and a suggestion of a spontaneous spleno renal shunt as well. This could be clinically correlated. ENDOSCOPIC STUDIES: 11/2016 EGD and colonoscopy were performed by Dr. Isaac: EGD showed distal esophageal inflammation with friability at GE junction and a small hiatal hernia, mild antral erosive gastritis. Colonoscopy showed 2 diminutive polyps which were removed and minor di verticulosis. Biopsies showed: A. GASTRIC, RANDOM, BIOPSIES: FRAGMENTS OF UNREMARKABLE ANTRAL AND FUNDIC-TYPE GASTRIC MUCOSA. THE HELICOBACTER PYLORI IMMUNOHISTOCHEMICAL STAIN IS NEGATIVE. B. COLON, HEPATIC FLEXURE, BIOPSIES: TUBULAR ADENOMA. C. COLON, AT 25 CM., BIOPSIES: FRAGMENTS OF UNREMARKABLE COLONIC MUCOSA. 08/2004 LIVER BIOPSY PERFORMED IN [place] SHOWED: ACTIVE CIRRHOSIS, PROBABLY MICRO NODULAR ASSOCIATED WITH MODERATE MACRO A ND MICROVESICULAR STEATOSIS. MILD INTERFACE HEPATITIS - GRADE 2 SLIGHT LOBULAR ACTIVITY - GRADE 1 NO DEFINITE AYDEE BODIES ARE IDENTIFIED NO SIGNIFICANT IRON APPEARS PRESENT NO DUCTOPENIA IS PRESENT NO DYSPLASIA IS NOTED COMMENT: THE ETIOLOGY OF CIRRHOSIS IS UNDETERMINED. POSSIBILITY OF MARTEL OR AUTOIMMUNE HEPATITIS ALTHOUGH UNLIKELY WAS CONSIDERED AN UNDERLYING CAUSE. TODAY'S VISIT: Complains of severe constipation with abdominal bloating. No BM for a week. Tried MOM once with delayed effect. Appetite is decreased with decreased PO intake. Post prandial pain and bloating. Complains of worsening leg edema. Review of Systems Constitutional: Constitutional: Reports fatigue, Denies fever(s), Denies headache(s), Reports lethargy, Reports malaise, Reports poor appetite and Denies weight loss Eyes: Eyes: Denies eye discharge and Denies irritation ENT: Reports Normal hearing present, Denies dysphagia, Denies dizziness and Denies headache(s) Cardiovascular: Cardiovascular: Denies chest pain, Reports leg edema and Denies dyspnea on exertion Respiratory: Respiratory: Denies cough and Denies dyspnea on exertion Gastrointestinal: Gastrointestinal: Reports abdominal pain, Reports bloating, Denies change in bowel habits, Reports constipation, Denies dysphagia and Denies heartburn Genitourinary: Genitourinary: Denies difficulty voiding and Denies dysuria Musculoskeletal: Musculoskeletal: Denies back pain and Denies arthralgias Integumentary/Breasts: Skin/Breast: Denies pruritus, Denies rash and Reports jaundice Neurologic: Reports Normal hearing present, Denies Abnormal speech present, Denies dizziness, Denies headache(s) and Denies seizure-like activity Psychiatric: Psychiatric: Denies anxiety, Denies depression and Denies panic attacks Endocrine: Endocrine: Denies cold intolerance, Reports fatigue, Denies flushing and Denies heat intolerance PMFSH Past Medical History Medical History Cirrhosis of liver Family History Family History Father No problems noted. Mother History of renal pelvis cancer Brother No problems noted. Sister No problems noted. Son No problems noted. Daughter No problems noted. Family history: reviewed and not pertinent Surgical History Surgical History History of esophagogastroduodenoscopy (EGD) Hx of colonoscopy Hx of right mastectomy Social History Social History Household Members: Spouse Housing: House Alcohol intake: never Smoking Status: Never smoker Second Hand Smoke Exposure: No service: No Current occupational status: retired Meds Allergies Allergy/AdvReac Type Severity Reaction Status Date / Time Sulfa (Sulfonamide Allergy Intermediate Itching Verified 06/28/20 22:19 Antibiotics) [SULFA (SULFONAMIDE ANTIBIOTICS)] Omeprazole Allergy Unknown Coughing Uncoded 06/26/20 10:30 steroids Allergy Unknown hallucinations, Uncoded 06/26/20 10:30 mouth sores STEROIDS AdvReac Severe HALLUCINATI Uncoded 06/26/20 10:30 ONS/NAUSEA/ DIZZINESS Certain chemo medication AdvReac Unknown Hospitalize Uncoded 06/26/20 10:30 d Home Medications Medication Instructions Recorded Confirmed Type cholecalciferol (vitamin D3) 25 25 mcg PO DAILY 06/26/20 06/28/20 History mcg (1,000 unit) tablet mecobalamin (vitamin B12) 1,000 1,000 mcg PO DAILY 06/26/20 06/28/20 History mcg chewable tablet multivitamin 1 tab PO DAILY 06/26/20 06/28/20 History furosemide 1 tab PO DAILY 06/28/20 06/28/20 History Physical Exam Vital Signs: Vital Signs: Last Vital Signs Temp 98.6 F 06/28/20 06:05 Pulse 89 06/28/20 06:05 Resp 18 06/28/20 06:05 BP 141/67 H 06/28/20 06:05 Pulse Ox 98 06/28/20 06:05 Body Mass Index 38.5 Const: General: ill appearing Nutritional Appearance: obese and Edematous Orientation/consciousness: patient oriented x3 Limitations: no limitations HENMT: Head: Yes normal to inspection Ears: hearing grossly normal bilaterally Mouth: Normal oral and palatal mucosa present Eyes: Sclerae: scleral abnormal (Jaundice) Pupils: Equal, round and reactive pupils present Neck: Neck: Yes normal visual inspection Chest: Chest palpation & inspection: normal inspection of the chest Resp: Effort & Inspection: normal respiratory effort Auscultation: clear to auscultation bilaterally Cardio: Palpation: normal PMI Rate: regular rate Rhythm: regular rhythm Heart sounds: S1 normal heart sound present, S2 normal heart sound present and no murmurs GI: Inspection: Yes distended Palpation (GI): Soft to palpation, nontender and No hepatosplenomegaly present Auscultation: normal bowel sounds Rectal Exam - Female: deferred Skin: General skin exam: no rashes or lesions noted Neuro: General: patient oriented x3, gait normal and moves all extremities Cranial nerves: Yes Equal, round and reactive pupils present and Yes Normal hearing present Speech: No Abnormal speech present Extrem: Right upper extremity: edema Psych: Appearance: grossly normal Mental Status: mental status grossly normal Results Labs CBC & Chem 7: 07/01/20 12:15 07/01/20 12:15 Labs: Short CBC 06/27/20 Range/Units 14:35 WBC 6.7 (4.8-10.8) X10*3/uL Hgb 10.2 L (12.0-16.0) g/dl Hct 31.4 L (37-47) % Plt Count 121 L (160-400) X10*3/uL BMP 06/27/20 14:35 Sodium 140 Potassium 4.0 Chloride 105 Carbon Dioxide 27 BUN 16 Creatinine 0.84 Calcium 7.9 L Liver Function 06/27/20 Range/Units 14:35 Total Bilirubin 5.9 H (0.0-1.0) mg/dL AST 74 H (5-31) U/L ALT 33 H (0-31) U/L Alkaline Phosphatase 130 H D (39-117) U/L Albumin 2.2 L (3.5-5.0) g/dL Assessment and Plan (1) Cirrhosis of liver with ascites: Status: Acute (2) Portal vein thrombosis: Status: Acute (3) CHF (congestive heart failure): Qualifiers: Heart failure chronicity: unspecified Heart failure type: unspecified Qualified Code(s): I50.9 - Heart failure, unspecified Problem details: Cardiology consult Status: Acute (4) Chronic constipation: Status: Acute (5) Lower extremity edema: Status: Acute (6) Pancreatic cyst: Status: Acute (7) Asymptomatic gallstones: Problem details: Abd Ct scan shows a large and distended GB stable over the past few years. Status: Acute (8) Autoimmune hepatitis: Status: Acute 70 YF with Fatty liver history of pyloric ulcer, breast and colon cancer followed in GI for end-stage liver disease likely related to fatty liver/autoimmune hepatitis. Pt admitted with weakness, bloating, decreased PO intake and worsening edema. Cirrhosis is complicated by PVT, portal hypertension with thrombocytopenia and varices on imaging studies. MELD score is 20, MELD Na score of 22. Pt complains of abdominal distension and worsening lower extremity edema due to progressive liver disease and PVT with ascites. Given presence of collaterals, PVT appears to be chronic and anticoagulation is not indicated. RECOMMENDATIONS: 1. Lactulose 2-3 times daily and titrate to 2-3 soft BMs a day for constipation and elevated ammonia levels 2. Diagnostic paracentesis and send ascitic fluid for cell count with diff and albumin to check SAAG ratio, cytology. 3. AFP, CA 19-9 is pending 3. Cardiology evaluation. 4. I will schedule an EGD to screen for varices once ascites and lower extremity edema has improved
--- NOTE | 2020-06-28 08:45 | PC.NURSE ---
SPOKE [facility] RE: PARACENTESIS ORDER. [facility] PT CURRENTLY REFUSING AM MEDS, REQUESTING TO DELAY UNTIL PARACENTESIS COMPLETE.
[2020-06-28] MEDS: Spironolactone 25 MG TABLET 50 MG PO (08:59)
[2020-06-28] MEDS: Lactulose 20 GM/30 ML SOLUTION PO ×2 (08:59→22:16)
[2020-06-28] MEDS: 0.9 % Sodium Chloride Flush 3 ML SYRINGE IVFLUSH ×2 (08:59→18:42)
[2020-06-28] MEDS: Furosemide 40 MG/4 ML VIAL IVPUSH (08:59)
[2020-06-28 10:38] LABS: Glucose Random 105 mg/dL (60-115); Total Protein 6.7 g/dL (6.5-8.0)
[2020-06-28] MEDS: Albumin Human 25 % 100 ML IV (11:03)
--- NOTE | 2020-06-28 11:40 | PC.NURSE ---
pt to ultrasound for paracentesis. albumin hung prior to departure
--- NOTE | 2020-06-28 11:56 | PC.NURSE ---
PER [facility] RN, MD PIÑA FOUND NO FLUID TO DRAW FOR DIAGNOSTICS. PT TO RETURN TO ED. WILL CONFER WITH MD CONTRERAS RE: CNTINUED ALBUMIN ADMINISTRATION.
[2020-06-28] MEDS: Docusate Sodium 100 MG CAPSULE PO ×2 (13:50→22:16)
--- NOTE | 2020-06-28 16:28 | PM.EVENT ---
Event Note Date of Service: 06/29/20 Event Note: Patient seen and examined by hospitalist team this morning She says she came with shortness of breath which is slowly improving Still has at least 2+ leg edema Paracentesis were tried but could not able be successful because less fluid Physical exam: Cvs: rrr, [id number] , no murmur res: clear to auscultation ,no rhonchii or wheezing abd: no rebound or guarding ,nt, bs present. ext pulses present , no cyanosis neuro: axo3 , nonfocal. Assessment and plan coordinated in H&P note Will continue diuresis GI and Cardio evaluation pending Constipation noble added laxatives Monitor LFTs
--- NOTE | 2020-06-28 21:19 | PC.NURSE ---
report given to rn on floor, pt ready for transport.
[2020-06-29] VITALS: BP 145/61; PULSE 91; RESP 16; TEMP 37; O2SAT 97
[2020-06-29] MEDS: 0.9 % Sodium Chloride Flush 3 ML SYRINGE IVFLUSH ×3 (00:35→17:51)
[2020-06-29 03:06] VITALS: BP 121/50; PULSE 93; RESP 18; TEMP 37.2; O2SAT 95
[2020-06-29] MEDS: Enoxaparin Sodium 40 MG/0.4 ML SYRINGE SUBCUT (04:09)
[2020-06-29 07:59] LABS: MANUAL DIFF FLAG NO
[2020-06-29 08:00] VITALS: BP 119/53; PULSE 89; RESP 20; TEMP 36.7; O2SAT 96
[2020-06-29 08:11] LABS: Basophils Absolute Auto 0.1 X10*3/uL (0.0-0.2); Basophils Percent Auto 0.9 % (0-2); Eosinophils Absolute Auto 0.2 X10*3/uL (0.0-0.4); Eosinophils Percent Auto 3.8 % (0-4); Hematocrit 25.3 % (37-47); Hemoglobin 8.3 g/dl (12.0-16.0); Imm Gran Abs Auto 0.02 X10*3/uL (0.00-0.03); Imm Gran Pct Auto 0.3 % (0.0-0.4); Lymphocytes Absolute Auto 1.5 X10*3/uL (1.2-4.9); Lymphocytes Percent Auto 23.6 % (20-40); Mean Corpuscular HGB Conc 32.8 g/dl (31.0-35.0); Mean Corpuscular Hemoglobin 35.8 pg (27.0-33.0); Mean Corpuscular Volume 109.1 fL (80-98); Monocytes Absolute Auto 0.8 X10*3/uL (0.1-1.2); Monocytes Percent Auto 12.7 % (2-11); Neutrophils Absolute Auto 3.8 X10*3/uL (2.0-8.3); Neutrophils Percent Auto 58.7 % (45-73); Red Blood Count 2.32 X10*6/uL (4.20-5.50); Red Cell Distribution Width 15.2 % (11.0-16.0); White Blood Count 6.4 X10*3/uL (4.8-10.8)
[2020-06-29 08:26] LABS: Anion Gap 11 (12-20); Blood Urea Nitrogen 13 mg/dL (9-16); Calcium 7.6 mg/dL (8.4-10.2); Carbon Dioxide 27 mmol/L (22-29); Chloride 104 mmol/L (96-108); Creatinine Clr Calc Pharmacy 81.6; Estimated Glomerular Filt Rate > 60; Glucose Random 100 mg/dL (60-115); Potassium 3.7 mmol/l (3.3-5.1); Sodium 138 mmol/L (135-145)
[2020-06-29 08:38] LABS: Mean Platelet Volume 10.3 fL (9.4-12.3); Platelet Count 89 X10*3/uL (160-400)
[2020-06-29] MEDS: Docusate Sodium 100 MG CAPSULE PO ×2 (09:38→20:10)
[2020-06-29] MEDS: Lactulose 20 GM/30 ML SOLUTION PO ×2 (09:38→20:09)
[2020-06-29] MEDS: Furosemide 40 MG/4 ML VIAL IVPUSH (09:38)
[2020-06-29] MEDS: Spironolactone 25 MG TABLET 50 MG PO (09:38)
--- NOTE | 2020-06-29 10:01 | PM.CNCAR ---
History of Present Illness History of Present Illness Date of Service: 06/29/20 Requesting physician: Dany Fernandez Consult reason: shortness of breath and other (Possible congestive heart failure) Chief complaint: CIRRHOSIS,Lab Work Narrative: Thank you for inviting us on consult on Chiki for progressive shortness of breath and generalized swelling/anasarca. Patient says over the last year she has been getting increasingly short of breath which culminated in not able to do her usual day-to-day activities which shortness of breath with minimal activity. She denies any clear orthopnea PND. Over the last few months she has also noticed generalized swelling more in the legs as well as both arms. She was then seen by on Tuesday and was subsequently advised to come to the emergency room. The suspected portal vein thrombosis by ultrasound and suspected increased ascites because she was complain of bloating in her abdomen and distension. Subsequent CT scan confirm presence of portal vein thrombosis which appears to be chronic with moderate ascites. There was attempted ultrasound-guided paracentesis yesterday but was felt that of fluid for ascites was minimal and could not be safely tap. Does elevated BNP slightly. She was then admitted for IV diuresis and started on spironolactone. She says her leg swelling has improved and her arm swelling has completely gone down. She complains of tiredness. Denies any orthopnea, PND. She has never had prior history of congestive heart failure. 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 She has no prior myocardial infarction, coronary artery disease. No history of hypertension or diabetes. Review of Systems Constitutional: Constitutional: Denies chills, Reports fatigue, Denies fever(s), Reports lethargy, Reports malaise and Reports snoring ENT: Reports dizziness Cardiovascular: Cardiovascular: Reports Abdominal Distension, Denies chest pain, Denies Loss of Consciousness, Denies palpitations, Reports dyspnea on exertion and Denies orthopnea Respiratory: Respiratory: Reports dyspnea on exertion and Reports snoring Gastrointestinal: Gastrointestinal: Reports bloating Neurologic: Reports system reviewed and no additional complaints, except as documented and Reports dizziness Psychiatric: Psychiatric: Reports no additional psychiatric complaints Endocrine: Endocrine: Reports fatigue and Denies palpitations Hematologic/Lymphatic: Hematologic/Lymphatic: Reports no additional hematologic/lymphatic complaints Allergic/Immunologic: Allergic/Immunologic: Reports no additional allergic/immunologic complaints PMFSH Past Medical History Medical History (Updated 06/28/20 @ 08:15 by Ozzie Zimmerman MD) Cirrhosis of liver Family History Family History Father No problems noted. Mother History of renal pelvis cancer Brother No problems noted. Sister No problems noted. Son No problems noted. Daughter No problems noted. Family history: reviewed and not pertinent Surgical History Surgical History History of esophagogastroduodenoscopy (EGD) Hx of colonoscopy Hx of right mastectomy Social History Social History Household Members: Spouse Housing: House Do you presently have visiting nurse or other home services: No Alcohol intake: never Smoking Status: Never smoker Second Hand Smoke Exposure: No Use of substances other than those prescribed or required for medical reasons: No Have you been hit, kicked, punched, or otherwise hurt by someone within the past year? If so, by whom?: No Do you feel safe in your current relationship?: Yes Is there a partner from a previous relationship who is making you feel unsafe now?: No Are you made to feel afraid or neglected: No Advance Directives: No Do you have thoughts of harming others: None Do you have a plan to hurt others: No Plan Recently lost weight without trying: No Current occupational status: retired Meds Allergies Allergy/AdvReac Type Severity Reaction Status Date / Time Sulfa (Sulfonamide Allergy Intermediate Itching Verified 06/28/20 22:19 Antibiotics) [SULFA (SULFONAMIDE ANTIBIOTICS)] Omeprazole Allergy Unknown Coughing Uncoded 06/26/20 10:30 steroids Allergy Unknown hallucinations, Uncoded 06/26/20 10:30 mouth sores STEROIDS AdvReac Severe HALLUCINATI Uncoded 06/26/20 10:30 ONS/NAUSEA/ DIZZINESS Certain chemo medication AdvReac Unknown Hospitalize Uncoded 06/26/20 10:30 d Home Medications Medication Instructions Recorded Confirmed Type cholecalciferol (vitamin D3) 25 25 mcg PO DAILY 06/26/20 06/28/20 History mcg (1,000 unit) tablet mecobalamin (vitamin B12) 1,000 1,000 mcg PO DAILY 06/26/20 06/28/20 History mcg chewable tablet multivitamin 1 tab PO DAILY 06/26/20 06/28/20 History furosemide 1 tab PO DAILY 06/28/20 06/28/20 History Physical Exam Vital Signs: Vital Signs: Last Vital Signs Temp 98.1 F 06/29/20 08:00 Pulse 89 06/29/20 08:00 Resp 20 06/29/20 08:00 BP 119/53 L 06/29/20 08:00 Pulse Ox 96 06/29/20 08:00 Body Mass Index 38.5 Const: General: cooperative, alert, awake and acute distress mild and respiratory Nutritional Appearance: obese Orientation/consciousness: patient oriented x3 HENMT: Head: Yes normocephalic and Yes atraumatic Neck: Neck: Yes trachea midline, Yes supple and Yes JVD Chest: Chest palpation & inspection: normal inspection of the chest Resp: Effort & Inspection: normal respiratory effort Auscultation: clear to auscultation bilaterally and diminished lung sounds Cardio: Jugular venous distension: JVD Palpation: normal PMI Rate: regular rate Rhythm: regular rhythm Heart sounds: S1 normal heart sound present and S2 normal heart sound present GI: Inspection: Yes distended Auscultation: normal bowel sounds Skin: General skin exam: no rashes or lesions noted Neuro: General: patient oriented x3 and no focal motor deficits Extrem: General: No clubbing, No cyanosis and Yes edema Psych: Appearance: grossly normal Results Labs and Meds Result diagrams: 06/29/20 07:30 06/29/20 07:30 Lab results: Laboratory Results - last 24 hr 06/28/20 06/29/20 06/29/20 10:15 07:30 07:30 WBC 6.4 RBC 2.32 L Hgb 8.3 L Hct 25.3 L MCV 109.1 H MCH 35.8 H MCHC 32.8 RDW 15.2 Plt Count 89 L D MPV 10.3 Immature Gran % (Auto) 0.3 Neut % (Auto) 58.7 Lymph % (Auto) 23.6 [place] % (Auto) 12.7 H Eos % (Auto) 3.8 Baso % (Auto) 0.9 Lymph # (Auto) 1.5 [place] # (Auto) 0.8 Eos # (Auto) 0.2 Baso # (Auto) 0.1 Abs Immat Gran (auto) 0.02 Absolute Neuts (auto) 3.8 Absolute Nucleated RBC 0.000 Nucleated RBC % (auto) 0.0 Sodium Cancelled Potassium Cancelled Chloride Cancelled Carbon Dioxide Cancelled Anion Gap Cancelled BUN Cancelled Creatinine Cancelled Estim Creat Clear Calc Cancelled Estimated GFR Cancelled Random Glucose 105 Cancelled Calcium Cancelled Total Protein 6.7 06/29/20 07:30 WBC RBC Hgb Hct MCV MCH MCHC RDW Plt Count MPV Immature Gran % (Auto) Neut % (Auto) Lymph % (Auto) [place] % (Auto) Eos % (Auto) Baso % (Auto) Lymph # (Auto) [place] # (Auto) Eos # (Auto) Baso # (Auto) Abs Immat Gran (auto) Absolute Neuts (auto) Absolute Nucleated RBC Nucleated RBC % (auto) Sodium 138 Potassium 3.7 Chloride 104 Carbon Dioxide 27 Anion Gap 11 L BUN 13 Creatinine 0.81 Estim Creat Clear Calc 81.6 Estimated GFR > 60 Random Glucose 100 Calcium 7.6 L Total Protein Imaging Radiologist's impression: Impressions Abdomen Ultrasound 06/28/20 04:23 IMPRESSION: Very small amount of ascites, too small to safely perform paracentesis. Assessment and Plan (1) CHF (congestive heart failure): Qualifiers: Heart failure chronicity: unspecified Heart failure type: unspecified Qualified Code(s): I50.9 - Heart failure, unspecified Status: Acute Patient presents with progressive shortness of breath and generalized anasarca in the setting of known prior cirrhosis of the liver. Clinical findings consistent with elevated JVD and fluid overload, findings more consistent with right heart failure. Etiology of this is unclear. Echocardiogram done in December had shown normal LV systolic function with impaired relaxation filling pattern and normal RV systolic pressure but distended IVC which was non collapsible consistent with elevated right atrial pressures. This was unusual finding in setting of normal RV systolic pressure. This likely that this represents right heart failure of unclear etiology. Will need to repeat echocardiogram to further assess for right-sided chamber size and function as well as evaluation right ventricular systolic pressure as there is likelihood of portal pulmonary hypertension in patient with cirrhosis of liver. Right heart failure related to left heart failure is also likely. Currently her symptoms have gradually improved with IV diuresis with Lasix would continue as patient appears to be still fluid overloaded. However most important and accurate intake and output chart needs to be pursued. Follow BMP and BNP. Agree with Aldactone therapy which helps with patient a cirrhosis of liver to maintain their fluid balance. Further treatment based on the response of finding of echocardiogram. Will follow with the patient. Thank you for allowing us to partake in her care
--- NOTE | 2020-06-29 11:16 | MHC.CM.PN ---
PT REPORTS SHE LIVES AT HOME WITH HER AND IS INDEPENDENT WITH SELF CARE. PT DENIES THE USE OF DME AND REPORTS HAVING NO IN HOME SERVICES. PT REPORTS SHE HAS A HCP COMPLETED AND HER PCP IS FERNANDO MARKHAM. IMM DELIVERED, PT REPORTS UNDERSTANDING HER RIGHTS. CURRENT DC PLAN IS HOME WITH NO SERVICES PT REPORTS HER [id number] WILL LIKELY PROVIDE TRANSPORTATION, HOWEVER SHE IS AWARE CM CAN ASSIST IF NEEDED.
[2020-06-29 11:41] LABS: Alanine Aminotransferase 28 U/L (0-31); Albumin Level 2.1 g/dL (3.5-5.0); Alkaline Phosphatase 110 U/L (39-117); Aspartate Amino Transferase 60 U/L (5-31); Bilirubin Direct 3.1 mg/dL (0.0-0.5); Bilirubin Total 5.3 mg/dL (0.0-1.0); Iron 148 mcg/dL (30-160); Percent Iron Saturation 78 % (15-50); Total Iron Binding Capacity 190 mcg/dL (228-428); Total Protein 5.8 g/dL (6.5-8.0); Unsaturated Iron Binding 42 ug/dL
[2020-06-29 12:00] VITALS: RESP 18
[2020-06-29 12:04] LABS: Ferritin 553 ng/mL (10-250)
[2020-06-29 12:13] LABS: Glucose Urine UA NEG (NEG); Leukocyte Esterase Urine NEG (NEG); Nitrite Urine NEG (NEG); Specific Gravity - Urine 1.015 (1.005-1.025); Urine Blood 2+ (NEG); Urine Ketones NEG (NEG); Urine Protein NEG (NEG-TRACE)
[2020-06-29 12:15] LABS: Appearance Urine CLEAR; Color Urine YELLOW
[2020-06-29 12:19] LABS: OBS Int Ctl Valid YES; OBS1 NEG (NEG)
[2020-06-29] MEDS: Albumin Human 25 % 50 ML 100 ML IV (12:31)
[2020-06-29] MEDS: Sennosides 8.6 MG TABLET 17.2 MG PO (12:31)
[2020-06-29 12:37] LABS: Bacteria Urine 1+ /LPF; Squamous Epithelial Cell Urine 1+ /LPF; WBC Urine 0 /HPF (0-4)
[2020-06-29 12:38] LABS: Amorphous Sediment Urine 1+ /LPF
--- NOTE | 2020-06-29 12:40 | HO.PM.IMPN ---
Subjective Subjective Date of Service: 06/30/20 Interval History: CHF exacerbation Review of Systems Shortness of breath is slowly improving Patient did not had in a fluid ascites was to be removed Denies any chest pain or abdominal pain or nausea or vomiting or fevers. Denies any blood in stool or any black stools. Physical Exam Vital Signs: Vital Signs: Last Vital Signs Temp 98.1 F 06/29/20 08:00 Pulse 89 06/29/20 08:00 Resp 20 06/29/20 08:00 BP 119/53 L 06/29/20 08:00 Pulse Ox 96 06/29/20 08:00 Body Mass Index 38.5 Physical exam: Neck: JVD equivocal CVS:rrr, Normal S1 and S2, no murmur. Respiratory: No respiratory distress. Breath sounds normal. No Wheezing. No rales Abdomen: Soft , mild difcomfort , nd , bs present. Skin: Skin warm and dry. Normal skin color. Normal skin turgor. Extremities: +2 bilateral lower extremity edema from the feet to the knees Neuro: Oriented X 3. No motor deficit. No sensory deficit. Moving all extermities. Objective Data Current Medications Generic Name Dose Route Start Last Admin Trade Name Freq PRN Reason Stop Dose Admin Docusate Sodium 100 mg 06/28/20 12:51 06/29/20 09:38 Docusate Sodium 100 Mg Capsule PO 100 mg BID ORALIA Administration Furosemide 40 mg 06/28/20 09:00 06/29/20 09:38 Furosemide 40 Mg/4 Ml Vial IVPUSH 40 mg DAILY ORALIA Administration Protocol Lactulose 20 gm 06/28/20 09:00 06/29/20 09:38 Lactulose 20 Gm/30 Ml Solution PO 20 gm BID ORALIA Administration Senna 17.2 mg 06/29/20 12:52 06/29/20 12:31 Sennosides 8.6 Mg Tablet PO 17.2 mg DAILY ORALIA Administration Sodium Chloride 3 ml 06/28/20 08:00 06/29/20 09:38 0.9 % Sodium Chloride Flush 3 Ml Syringe IVFLUSH 3 ml QSHIFT ORALIA Administration Spironolactone 50 mg 06/28/20 09:00 06/29/20 09:38 Spironolactone 25 Mg Tablet PO 50 mg DAILY ORALIA Administration Protocol Labs CBC & Chem 7: 06/30/20 07:41 06/30/20 05:58 Microbiology Microbiology Results: Microbiology 06/27/20 19:16 Blood - Venous Blood Culture - Preliminary No growth after 24 hours. 06/27/20 17:35 Blood - Venous Blood Culture - Preliminary No growth after 24 hours. Assessment and Plan (1) Cirrhosis of liver with ascites: Status: Acute (2) CHF (congestive heart failure): Status: Acute Assessment and Plan: 70 year old woman with cirrhosis presented with increasing leg edema, fatigue and abd girth with poor PO intake. Concern for portal vein thrombosis and possible volume overload/CHF with the leg edema. 1.Cirrhosis, portal vein thrombosis. Will continue diuresis I/O Daily weights Monitor LFTs-seems going up since last lfts' ultrasound guided paracentesis for diagnostic reasons-could not drain any fluid because of minimal fluid as per IR.. Seen by GI: for end-stage liver disease likely related to fatty liver/autoimmune hepatitis. 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 Patient was diagnosed with autoimmune hepatitis in the past in treated with azathioprine for 4-5 years- She stopped this on her own due to concern for increased cancer risk after she was diagnosed with breast cancer. Patient was referred to GI due to an increase in her liver function tests recently. given trail of Prednisone 40 mg daily and stopped after 1 day since she developed MRSA bacteremia of unclear source. Echo showed no vegetation, MRI of back no new abscess or diskitis. ID recommended IV Vanco for total 4 weeks. On follow-up outpatiently - pt was reluctant to resume Prednisone treatment. Ca19.9, Afp- pending Constipation noble added laxatives Will give 1 dose of albumin since borderline albumin Will continue diuretics, lactulose 2.Leg edema, ?CHF: Echo ordered Aldactone 50mg and Lasix 40mg IV. Cardio evaluation noted-will continue diuresis. DVT proph 3.: Acute on chronic anemia macrocytic: B12 and folate recently was normal Will add iron studies, fecal occult blood Probably she has anemia of chronic disease since has liver disease and macrocytic anemia? Well monitor H&H- patient denies any history of saadia bleeding or melena DVT prophylaxis: Venodyne boots since anemia issue
[2020-06-29 15:38] VITALS: BP 133/52; PULSE 91; RESP 18; TEMP 36.3; O2SAT 98
[2020-06-29 19:48] VITALS: BP 118/43; PULSE 92; RESP 19; TEMP 36.8; O2SAT 97
[2020-06-30] VITALS: BP 130/43; PULSE 93; RESP 20; TEMP 36.9; O2SAT 97
--- NOTE | 2020-06-30 | ECG_ITS ---
Test Reason : ? CHF Blood Pressure : / mmHG Vent. Rate : 096 BPM Atrial Rate : 096 BPM P-R Int : 152 ms QRS Dur : 080 ms QT Int : 356 ms P-R-T Axes : 067 070 038 degrees QTc Int : 449 ms Normal sinus rhythm Normal ECG When compared with ECG of 19-DEC-2019 17:21, Criteria for Septal infarct are no longer Present Referred By: Dany Fernandez Electronically Signed By:MINA ROMERO
[2020-06-30] MEDS: 0.9 % Sodium Chloride Flush 3 ML SYRINGE IVFLUSH ×3 (01:17→17:04)
[2020-06-30 03:39] VITALS: BP 140/57; PULSE 89; RESP 19; TEMP 36.7; O2SAT 95
--- NOTE | 2020-06-30 04:23 | CA_ITS ---
Transthoracic Echocardiogram Patient (Last, First, Middle): Chiki Reid, Gender: Female Date of : 1950 Age: 69 Procedure Date: 06/30/2020 Procedure Type: Transthoracic Echocardiogram Location: S3E Height: 167.64 cm Weight: 107.96 kg BSA: 2.15 m2 Heart Rate: bpm BP: 140 / 57 mmHg Director Building: Referring MD: Lex Graham MD Symptoms: CHF, volume overload Study Quality: Fair ECG Rhythm: Sinus Conclusions: - The left ventricular systolic function is normal. The visually estimated ejection fraction is between 65-70%. - No obvious valvular pathology seen on this study. - The pulmonary artery systolic pressure is normal. Findings Left Ventricle Normal left ventricular cavity size. There is normal left ventricular wall thickness. The left ventricular systolic function is normal. The visually estimated ejection fraction is between 65-70%. There is no evidence of regional wall motion abnormalities. E/E prime ratio is between 8 and 15 consistent with indeterminate filling pressures. Evidence suggests grade I (mild) diastolic dysfunction. Right Ventricle There is normal right ventricular systolic function. Top normal right ventricular size. Atria Both atria are normal in size. Aortic Valve There is a normal trileaflet aortic valve. There is no aortic valve stenosis. There is no aortic valve regurgitation. Mitral Valve There is mild anterior mitral leaflet thickening. There is trace mitral valve regurgitation. There is no mitral valve stenosis. Pulmonic Valve The pulmonic valve was not well visualized. Tricuspid Valve Normal tricuspid valve structure. There is trace tricuspid valve regurgitation. The pulmonary artery systolic pressure is normal. Great Vessels The aortic annulus, sinuses of valsalva, and asc aorta are normal in size. Venous The inferior vena cava was not well visualized. The inferior vena cava is normal in size and collapses greater than 50% with inspiration. Pericardium/Pleural There is no evidence of pericardial effusion. Prior Study Comparison No significant change compared to prior study dated: 12/20/2020. Recommendations, Care & Conclusions No obvious valvular pathology seen on this study. Measurements 2D Linear Measurements IVSd: 1.03 0.6-0.9/0.6-1.0 cm LVIDd: 4.66 3.9-5.3/4.2-5.9 cm LVIDd Index: 2.17 2.4-3.2/2.2-3.1 cm/m2 LVIDs: 2.72 2.0-3.6 cm LVPWd: 0.99 0.7-1.1 cm Ao Root: 3.00 2.1-3.5 cm LA Diam: 3.90 2.7-3.8/3.0-4.0 cm LAIDs Index: 1.81 1.5-2.3 cm/m2 LV Mass: 204.90 67-162/88-224 g LV Mass Index: 95.30 43-95/49-115 g/m2 LVOT Diam: 2.00 3.0+(-)1.3 cm Mitral Valve MV VTI: 0.32 MV Pk Spencer: 1.48 MV Mn Spencer: 0.91 MV Pk Grad: 9.00 MV Mn Grad: 4.00 MV Pk E: 0.92 MV PK A: 1.24 MV Decel Time: 121.00 E/A: 0.70 E'Lateral: 6.48 E'Medial: 6.48 E/E' Med: 14.20 E/E' Lat: 14.20 PHT: 36.00 MVA PHT: 6.11 MVA Continuity: 3.16 Decel [place]: 7.55 Aortic Valve AoV Pk Spencer: 2.12 AoV Mn Spencer: 1.54 AoV VTI: 0.53 AoV Pk Grad: 18.00 Aov Mn Grad: 11.00 GAVIN Cont.VTI: 1.88 LVOT LVOT Pk Spencer: 1.26 LVOT Mn Spencer: 0.90 LVOT VTI: 0.32 LVOT Pk Grad: 6.00 LVOT Mn Grad: 4.00 LVOT Diam: 2.00 LVOT Area: 3.14 Diastolic Function MV Pk E: 0.92 MV Pk A: 1.24 E/A: 0.70 E'Medial: 6.48 E/E' Med: 14.20 E' Laterial: 6.48 E/E' Lat: 14.20 Tricuspid Valve TR Pk Spencer: 2.52 TR Pk Grad: 25.00 RA Press: 3.00 RVSP: 28.00 Great Vessels Aorta Ao Root-2D: 3.00 2.0-3.7 cm Pulmonary Valve PV Pk Spencer: 1.49 Peak PV Grad: 9.00 Updated in Other Vendor System with Status of Final Rangel Welch MD electronically signed on 06/30/2020 11:50:57 AM with status of Final
[2020-06-30 07:04] LABS: Anion Gap 12 (12-20); Blood Urea Nitrogen 11 mg/dL (9-16); Calcium 7.8 mg/dL (8.4-10.2); Carbon Dioxide 26 mmol/L (22-29); Chloride 104 mmol/L (96-108); Creatinine Clr Calc Pharmacy 79.6; Estimated Glomerular Filt Rate > 60; Glucose Random 96 mg/dL (60-115); Potassium 3.5 mmol/l (3.3-5.1); Sodium 138 mmol/L (135-145)
[2020-06-30 08:00] VITALS: BP 128/50; PULSE 93; RESP 19; TEMP 36.6; O2SAT 95
[2020-06-30] MEDS: Spironolactone 25 MG TABLET 50 MG PO (08:04)
[2020-06-30] MEDS: Lactulose 20 GM/30 ML SOLUTION PO (08:04)
[2020-06-30] MEDS: Furosemide 40 MG/4 ML VIAL IVPUSH (08:04)
[2020-06-30 08:59] LABS: Hemoglobin 8.5 g/dl (12.0-16.0)
[2020-06-30 09:01] LABS: Hematocrit 25.5 % (37-47)
[2020-06-30 09:07] LABS: Alanine Aminotransferase 28 U/L (0-31); Albumin Level 2.2 g/dL (3.5-5.0); Alkaline Phosphatase 112 U/L (39-117); Aspartate Amino Transferase 60 U/L (5-31); Bilirubin Total 5.1 mg/dL (0.0-1.0); Total Protein 5.6 g/dL (6.5-8.0)
--- NOTE | 2020-06-30 10:52 | PM.PNCARD ---
Subjective Subjective Date of Service: 06/30/20 Interval history: Continues to be short of breath. She still has leg swelling. Review of Systems Review of Systems Yes all other systems are reviewed and are negative Constitutional: Denies headache(s) Reports Normal hearing present, Reports dizziness and Denies headache(s) Cardiovascular: Reports as per HPI, Reports no additional cardiovascular complaints, Denies acrocyanosis, Denies cool extremities, Denies painful fingertips, Denies chest pain, Denies chest pain at rest, Denies diaphoresis, Denies syncope, Denies irregular heart rhythm, Denies claudication, Reports leg edema, Denies lightheadedness, Denies palpitations and Reports dyspnea Respiratory: Reports dyspnea Reports system reviewed and no additional complaints, except as documented, Reports Normal hearing present, Denies Abnormal speech present, Reports dizziness, Denies syncope, Denies headache(s) and Denies seizure-like activity Endocrine: Denies palpitations Physical Exam Vital Signs: Last Vital Signs Temp 97.8 F 06/30/20 08:00 Pulse 93 06/30/20 08:00 Resp 19 06/30/20 08:00 BP 128/50 L 06/30/20 08:00 Pulse Ox 95 06/30/20 08:00 Body Mass Index 38.5 Const General: cooperative, comfortable and no acute distress Orientation/consciousness: patient oriented x3 HENMT Other: Unremarkable Neck Neck: Yes normal visual inspection Chest Chest palpation & inspection: normal inspection of the chest Resp Auscultation: clear to auscultation bilaterally, no crackles and no wheezes Cardio Jugular venous distension: no JVD Palpation: normal PMI Heart sounds: S1 normal heart sound present, S2 normal heart sound present, no gallops, Murmur heart sound present systolic early, II/ and at the right sternal border and no rubs GI Palpation (GI): Soft to palpation Back/Spine/Pelvis Other: unremarkable Skin General skin exam: no rashes or lesions noted Neuro General: patient oriented x3 Cranial nerves: Yes Normal hearing present Speech: No Abnormal speech present Extrem General: Yes edema (2+) Psych Mental Status: mental status grossly normal Results Labs and Meds Result diagrams: 06/30/20 07:41 06/30/20 05:58 Lab results: Laboratory Results - last 24 hr 01/17/21 01/17/21 01/17/21 07:30 11:54 11:54 Hgb Hct Sodium Potassium Chloride Carbon Dioxide Anion Gap BUN Creatinine Estim Creat Clear Calc Estimated GFR Random Glucose Calcium Iron 148 TIBC 190 L % Saturation 78 H Unsat Iron Binding 42 Ferritin 553 H Total Bilirubin 5.3 H Direct Bilirubin 3.1 H AST 60 H ALT 28 Alkaline Phosphatase 110 Total Protein 5.8 L Albumin 2.1 L Urine Color YELLOW Urine Appearance CLEAR Urine pH 7.0 Ur Specific [place] 1.015 Urine Protein NEG Urine Glucose (UA) NEG Urine Ketones NEG Urine Blood 2+ H Urine Nitrite NEG Ur Leukocyte Esterase NEG Urine RBC 10-14 H Urine WBC 0 Ur Squamous Epith Cells 1+ Amorphous Sediment 1+ Urine Bacteria 1+ Stool Occult Blood NEG 06/30/20 06/30/20 05:58 07:41 Hgb 8.5 L Hct 25.5 L Sodium 138 Potassium 3.5 Chloride 104 Carbon Dioxide 26 Anion Gap 12 BUN 11 Creatinine 0.83 Estim Creat Clear Calc 79.6 Estimated GFR > 60 Random Glucose 96 Calcium 7.8 L Iron TIBC % Saturation Unsat Iron Binding Ferritin Total Bilirubin 5.1 H Direct Bilirubin 3.0 H AST 60 H ALT 28 Alkaline Phosphatase 112 Total Protein 5.6 L Albumin 2.2 L Urine Color Urine Appearance Urine pH Ur Specific [place] Urine Protein Urine Glucose (UA) Urine Ketones Urine Blood Urine Nitrite Ur Leukocyte Esterase Urine RBC Urine WBC Ur Squamous Epith Cells Amorphous Sediment Urine Bacteria Stool Occult Blood Progress Note: A&P Assessment and plan (1) CHF (congestive heart failure): Status: Acute (2) Lower extremity edema: Status: Acute (3) Cirrhosis of liver with ascites: Status: Acute Assessment and Plan: Has anasarca that is probably from her advanced liver disease. Continue diuretics. Will obtain echocardiogram for cardiac function assessment and also assess for any pulmonary hypertension that could be secondary to liver cirrhosis. Fall Risk Details Current Medications: Current Medications Generic Name Dose Route Start Last Admin Trade Name Freq PRN Reason Stop Dose Admin Docusate Sodium 100 mg 06/28/20 12:51 06/30/20 08:11 Docusate Sodium 100 Mg Capsule PO Not Given BID ORALIA Furosemide 40 mg 06/28/20 09:00 06/30/20 08:04 Furosemide 40 Mg/4 Ml Vial IVPUSH 40 mg DAILY ORALIA Administration Protocol Lactulose 20 gm 06/28/20 09:00 06/30/20 08:04 Lactulose 20 Gm/30 Ml Solution PO 20 gm BID ORALIA Administration Senna 17.2 mg 06/29/20 12:52 06/30/20 08:11 Sennosides 8.6 Mg Tablet PO Not Given DAILY ORALIA Sodium Chloride 3 ml 06/28/20 08:00 06/30/20 08:05 0.9 % Sodium Chloride Flush 3 Ml Syringe IVFLUSH 3 ml QSHIFT ORALIA Administration Spironolactone 50 mg 06/28/20 09:00 06/30/20 08:04 Spironolactone 25 Mg Tablet PO 50 mg DAILY ORALIA Administration Protocol Time Spent With Patient Time: Total time spent is greater than 50% in coordination of care (as documented) at patient's floor/unit and/or counseling patient: Time with patient: less than 15 minutes
[2020-06-30 11:44] VITALS: BP 140/50; PULSE 87; RESP 19; TEMP 37.2; O2SAT 97
[2020-06-30 12:37] LABS: Carbohydrate Antigen 19-9 41 U/mL (<34)
[2020-06-30 13:03] LABS: Alpha Fetoprotein 4.4 ng/mL
[2020-06-30] MEDS: Phytonadione (Vit K1) 5 MG in 0.9 % Sodium Chloride 50 ML 50.5 MG IV (13:44)
[2020-06-30 14:51] VITALS: BMI 38.5
--- NOTE | 2020-06-30 15:50 | HO.PM.IMPN ---
Subjective Subjective Date of Service: 06/30/20 Interval History: chf execerebation Review of Systems Patient still feels short of breath with walking Denies any chest pain or abdominal pain or fever chills or nausea or vomiting. Physical Exam Vital Signs: Vital Signs: Last Vital Signs Temp 99 F 06/30/20 11:44 Pulse 87 06/30/20 11:44 Resp 19 06/30/20 11:44 BP 140/50 H 06/30/20 11:44 Pulse Ox 97 06/30/20 11:44 Body Mass Index 38.5 Physical exam: Constitutional: Noted acute distress Cvs: rrr, [id number] , no murmur res: fair air entry slightly diminshed at bases. abd: no rebound or guarding ,nt, bs present. ext pulses present , no cyanosis neuro: axo3 , nonfocal. Objective Data Current Medications Generic Name Dose Route Start Last Admin Trade Name Freq PRN Reason Stop Dose Admin Bisacodyl 10 mg 07/01/20 13:30 Bisacodyl 5 Mg Tablet.Dr PO 07/01/20 13:31 ONCE ONE Docusate Sodium 100 mg 06/28/20 12:51 06/30/20 08:11 Docusate Sodium 100 Mg Capsule PO Not Given BID ORALIA Furosemide 40 mg 06/28/20 09:00 06/30/20 08:04 Furosemide 40 Mg/4 Ml Vial IVPUSH 40 mg DAILY [facility] Administration Protocol Lactulose 20 gm 06/28/20 09:00 06/30/20 08:04 Lactulose 20 Gm/30 Ml Solution PO 20 gm BID ORALIA Administration Polyethylene Glycol 238 gm 06/30/20 12:45 Polyethylene Glycol 3350 17 Gm Powd.Pack PO ONCE ORALIA Senna 17.2 mg 06/29/20 12:52 06/30/20 08:11 Sennosides 8.6 Mg Tablet PO Not Given DAILY ORALIA Sodium Chloride 3 ml 06/28/20 08:00 06/30/20 08:05 0.9 % Sodium Chloride Flush 3 Ml Syringe IVFLUSH 3 ml QSHIFT ORALIA Administration Spironolactone 50 mg 06/28/20 09:00 06/30/20 08:04 Spironolactone 25 Mg Tablet PO 50 mg DAILY [facility] Administration Protocol Labs CBC & Chem 7: 06/30/20 07:41 06/30/20 05:58 Microbiology Microbiology Results: Microbiology 06/27/20 19:16 Blood - Venous Blood Culture - Preliminary No growth after 48 hours. 06/27/20 17:35 Blood - Venous Blood Culture - Preliminary No growth after 48 hours. Assessment and Plan (1) CHF (congestive heart failure): Status: Acute Assessment and Plan: 70 year old woman with cirrhosis presented with increasing leg edema, fatigue and abd girth with poor PO intake. Concern for portal vein thrombosis and possible volume overload/CHF with the leg edema. 1.Cirrhosis, portal vein thrombosis. Will continue diuresis I/O Daily weights Monitor LFTs-seems going up since last lfts' ultrasound guided paracentesis for diagnostic reasons-could not drain any fluid because of minimal fluid as per IR.. Seen by GI: for end-stage liver disease likely related to fatty liver/autoimmune hepatitis. 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 Patient was diagnosed with autoimmune hepatitis in the past in treated with azathioprine for 4-5 years- She stopped this on her own due to concern for increased cancer risk after she was diagnosed with breast cancer. Patient was referred to GI due to an increase in her liver function tests recently. given trail of Prednisone 40 mg daily and stopped after 1 day since she developed MRSA bacteremia of unclear source. Echo showed no vegetation, MRI of back no new abscess or diskitis. ID recommended IV Vanco for total 4 weeks. On follow-up outpatiently - pt was reluctant to resume Prednisone treatment. Ca19.9, Afp- pending Constipation - laxatives clear liquid elevated inr Will continue diuretics, lactulose, continue laxatives -will add vitamin K in anticipation of procedure EGD/colonoscopy in the morning and elevated INR. 2.Leg edema, ?CHF: Echo ordered Aldactone 50mg and Lasix 40mg IV. Cardio evaluation noted-will continue diuresis. 3.: Acute on chronic anemia macrocytic: B12 and folate recently was normal Will add iron studies pending, fecal occult blood neg Probably she has anemia of chronic disease since has liver disease and macrocytic anemia? Well monitor H&H- patient denies any history of saadia bleeding or melena DVT prophylaxis: Venodyne boots since anemia issue (2) Cirrhosis of liver with ascites: Status: Acute
[2020-06-30 16:00] VITALS: BP 159/71; PULSE 96; RESP 19; TEMP 37.1; O2SAT 96
[2020-06-30] MEDS: polyethylene glycoL 3350 17 GM POWD.PACK 238 GM PO (19:14)
[2020-06-30 19:45] VITALS: BP 148/70; PULSE 82; RESP 19; TEMP 36.6; O2SAT 96
[2020-06-30 23:57] LABS: Zinc 27 mcg/dL (60-130)
[2020-07-01] VITALS (9 sets, daily range): BP systolic 106–153; BP diastolic 40–71; PULSE 92–102; RESP 16–20; TEMP 36.2–37.2; O2SAT 92–100
[2020-07-01] MEDS: 0.9 % Sodium Chloride Flush 3 ML SYRINGE IVFLUSH ×4 (00:59→23:33)
[2020-07-01 07:25] LABS: Hematocrit 30.1 % (37-47); Hemoglobin 9.9 g/dl (12.0-16.0)
--- NOTE | 2020-07-01 07:26 | PC.NURSE ---
lab called to say that BMP was hemalized and that a new order needed to be put in. I put in the new order for the lab to come up and draw.
--- NOTE | 2020-07-01 08:13 | PC.NURSE ---
PER PATIENT HAD ABOUT 4-6OZ OF WATER BEFORE THEY BROUGHT ME DOWN ANESTHESIA ROSALIE NOTIFIED AND OKAYED PATIENT TO PROCEED SCHEDULED, IT WOULD BE 2 HOURS AFTER CLEAR LIQUID BY THE TIME SHE WENT IN
--- NOTE | 2020-07-01 08:30 | P.CONAN_ITS ---
[facility] Past Medical History Medical History Cirrhosis of liver Family History Family History Father No problems noted. Mother History of renal pelvis cancer Brother No problems noted. Sister No problems noted. Son No problems noted. Daughter No problems noted. Surgical History Surgical History History of esophagogastroduodenoscopy (EGD) Hx of colonoscopy Hx of right mastectomy Social History Social History Household Members: Spouse Housing: House Alcohol intake: never Smoking Status: Never smoker Second Hand Smoke Exposure: No service: No Current occupational status: retired [employer] Allergies Allergy/AdvReac Type Severity Reaction Status Date / Time Sulfa (Sulfonamide Allergy Intermediate Itching Verified 06/28/20 22:19 Antibiotics) [SULFA (SULFONAMIDE ANTIBIOTICS)] Omeprazole Allergy Unknown Coughing Uncoded 06/26/20 10:30 steroids Allergy Unknown hallucinations, Uncoded 06/26/20 10:30 mouth sores STEROIDS AdvReac Severe HALLUCINATI Uncoded 06/26/20 10:30 ONS/NAUSEA/ DIZZINESS Certain chemo medication AdvReac Unknown Hospitalize Uncoded 06/26/20 10:30 d Home Medications Medication Instructions Recorded Confirmed Type cholecalciferol (vitamin D3) 25 25 mcg PO DAILY 06/26/20 06/28/20 History mcg (1,000 unit) tablet mecobalamin (vitamin B12) 1,000 1,000 mcg PO DAILY 06/26/20 06/28/20 History mcg chewable tablet multivitamin 1 tab PO DAILY 06/26/20 06/28/20 History furosemide 1 tab PO DAILY 06/28/20 06/28/20 History Exam Exam Date and Time: July 01, 2020 0830 Height,Weight and Vital Signs: Height 5 ft 6 in Weight 108.3 kg Last Vital Signs Temp 98.0 F 07/01/20 08:08 Pulse 95 07/01/20 08:08 Resp 20 07/01/20 08:08 BP 129/59 L 07/01/20 08:08 Pulse Ox 99 07/01/20 08:08 Pertinent Lab Results Pertinent Lab Results: Laboratory Tests 06/27/20 06/27/20 06/27/20 14:34 14:35 14:35 WBC 6.7 RBC 2.86 L Hgb 10.2 L Hct 31.4 L MCV 109.8 H MCH 35.7 H MCHC 32.5 RDW 15.3 Plt Count 121 L MPV 10.1 Immature Gran % (Auto) 0.4 Neut % (Auto) 63.5 Lymph % (Auto) 20.5 Shannon % (Auto) 12.8 H Eos % (Auto) 1.6 Baso % (Auto) 1.2 Lymph # (Auto) 1.4 Shannon # (Auto) 0.9 Eos # (Auto) 0.1 Baso # (Auto) 0.1 Abs Immat Gran (auto) 0.03 Absolute Neuts (auto) 4.3 Absolute Nucleated RBC 0.000 Nucleated RBC % (auto) 0.0 PT INR Sodium 140 Potassium 4.0 Chloride 105 Carbon Dioxide 27 Anion Gap 12 BUN 16 Creatinine 0.84 Estim Creat Clear Calc TNP Estimated GFR > 60 Random Glucose TNP Fasting Glucose 96 Lactic Acid Lactic Acid Fup @ 2Hr Calcium 7.9 L Iron TIBC % Saturation Unsat Iron Binding Ferritin Total Bilirubin 5.9 H Direct Bilirubin AST 74 H ALT 33 H Alkaline Phosphatase 130 H D Ammonia 70 H B-Natriuretic Peptide Total Protein 6.7 Albumin 2.2 L Alpha Fetoprotein CA 19-9 Antigen Vitamin B12 25-OH Vitamin D Total Folate TSH 1.33 Urine Color Urine Appearance Urine pH Ur Specific [place] Urine Protein Urine Glucose (UA) Urine Ketones Urine Blood Urine Nitrite Ur Leukocyte Esterase Urine RBC Urine WBC Ur Squamous Epith Cells Amorphous Sediment Urine Bacteria Stool Occult Blood Zinc COVID-19 (JAS) COVID-19 Clin Com 06/27/20 06/27/20 06/27/20 14:35 14:35 14:35 WBC RBC Hgb Hct MCV MCH MCHC RDW Plt Count MPV Immature Gran % (Auto) Neut % (Auto) Lymph % (Auto) Shannon % (Auto) Eos % (Auto) Baso % (Auto) Lymph # (Auto) Shannon # (Auto) Eos # (Auto) Baso # (Auto) Abs Immat Gran (auto) Absolute Neuts (auto) Absolute Nucleated RBC Nucleated RBC % (auto) PT INR Sodium Potassium Chloride Carbon Dioxide Anion Gap BUN Creatinine Estim Creat Clear Calc Estimated GFR Random Glucose Fasting Glucose Lactic Acid Lactic Acid Fup @ 2Hr Calcium Iron TIBC % Saturation Unsat Iron Binding Ferritin Total Bilirubin Direct Bilirubin AST ALT Alkaline Phosphatase Ammonia B-Natriuretic Peptide Total Protein Albumin Alpha Fetoprotein 4.4 CA 19-9 Antigen Vitamin B12 > 2000 H 25-OH Vitamin D Total 12.9 Folate 14.3 TSH Urine Color Urine Appearance Urine pH Ur Specific [place] Urine Protein Urine Glucose (UA) Urine Ketones Urine Blood Urine Nitrite Ur Leukocyte Esterase Urine RBC Urine WBC Ur Squamous Epith Cells Amorphous Sediment Urine Bacteria Stool Occult Blood Zinc COVID-19 (JAS) COVID-19 [employer] 06/27/20 06/27/20 06/27/20 14:35 17:35 17:35 WBC RBC Hgb Hct MCV MCH MCHC RDW Plt Count MPV Immature Gran % (Auto) Neut % (Auto) Lymph % (Auto) Shannon % (Auto) Eos % (Auto) Baso % (Auto) Lymph # (Auto) Shannon # (Auto) Eos # (Auto) Baso # (Auto) Abs Immat Gran (auto) Absolute Neuts (auto) Absolute Nucleated RBC Nucleated RBC % (auto) PT 27.2 H INR 2.3 H Sodium Potassium Chloride Carbon Dioxide Anion Gap BUN Creatinine Estim Creat Clear Calc Estimated GFR Random Glucose Fasting Glucose Lactic Acid 2.1 H* Lactic Acid Fup @ 2Hr Calcium Iron TIBC % Saturation Unsat Iron Binding Ferritin Total Bilirubin Direct Bilirubin AST ALT Alkaline Phosphatase Ammonia B-Natriuretic Peptide Total Protein Albumin Alpha Fetoprotein CA 19-9 Antigen Vitamin B12 25-OH Vitamin D Total Folate TSH Urine Color Urine Appearance Urine pH Ur Specific [place] Urine Protein Urine Glucose (UA) Urine Ketones Urine Blood Urine Nitrite Ur Leukocyte Esterase Urine RBC Urine WBC Ur Squamous Epith Cells Amorphous Sediment Urine Bacteria Stool Occult Blood Zinc 27 L COVID-19 (JAS) COVID-19 [employer] 06/27/20 06/27/20 06/27/20 17:35 17:35 20:24 WBC RBC Hgb Hct MCV MCH MCHC RDW Plt Count MPV Immature Gran % (Auto) Neut % (Auto) Lymph % (Auto) Shannon % (Auto) Eos % (Auto) Baso % (Auto) Lymph # (Auto) Shannon # (Auto) Eos # (Auto) Baso # (Auto) Abs Immat Gran (auto) Absolute Neuts (auto) Absolute Nucleated RBC Nucleated RBC % (auto) PT INR Sodium Potassium Chloride Carbon Dioxide Anion Gap BUN Creatinine Estim Creat Clear Calc Estimated GFR Random Glucose Fasting Glucose Lactic Acid Lactic Acid Fup @ 2Hr 1.3 Calcium Iron TIBC % Saturation Unsat Iron Binding Ferritin Total Bilirubin Direct Bilirubin AST ALT Alkaline Phosphatase Ammonia B-Natriuretic Peptide 135 H Total Protein Albumin Alpha Fetoprotein CA 19-9 Antigen Vitamin B12 25-OH Vitamin D Total Folate TSH Urine Color Urine Appearance Urine pH Ur Specific [place] Urine Protein Urine Glucose (UA) Urine Ketones Urine Blood Urine Nitrite Ur Leukocyte Esterase Urine RBC Urine WBC Ur Squamous Epith Cells Amorphous Sediment Urine Bacteria Stool Occult Blood Zinc COVID-19 (JAS) Negative COVID-19 [employer] Com See Note 06/28/20 06/28/20 06/29/20 10:15 10:15 07:30 WBC 6.4 RBC 2.32 L Hgb 8.3 L Hct 25.3 L MCV 109.1 H MCH 35.8 H MCHC 32.8 RDW 15.2 Plt Count 89 L D MPV 10.3 Immature Gran % (Auto) 0.3 Neut % (Auto) 58.7 Lymph % (Auto) 23.6 Shannon % (Auto) 12.7 H Eos % (Auto) 3.8 Baso % (Auto) 0.9 Lymph # (Auto) 1.5 Shannon # (Auto) 0.8 Eos # (Auto) 0.2 Baso # (Auto) 0.1 Abs Immat Gran (auto) 0.02 Absolute Neuts (auto) 3.8 Absolute Nucleated RBC 0.000 Nucleated RBC % (auto) 0.0 PT INR Sodium Potassium Chloride Carbon Dioxide Anion Gap BUN Creatinine Estim Creat Clear Calc Estimated GFR Random Glucose 105 Fasting Glucose Lactic Acid Lactic Acid Fup @ 2Hr Calcium Iron TIBC % Saturation Unsat Iron Binding Ferritin Total Bilirubin Direct Bilirubin AST ALT Alkaline Phosphatase Ammonia B-Natriuretic Peptide Total Protein 6.7 Albumin Alpha Fetoprotein CA 19-9 Antigen 41 H Vitamin B12 25-OH Vitamin D Total Folate TSH Urine Color Urine Appearance Urine pH Ur Specific [place] Urine Protein Urine Glucose (UA) Urine Ketones Urine Blood Urine Nitrite Ur Leukocyte Esterase Urine RBC Urine WBC Ur Squamous Epith Cells Amorphous Sediment Urine Bacteria Stool Occult Blood Zinc COVID-19 (JAS) COVID-19 [employer] Com 06/29/20 06/29/20 06/29/20 07:30 07:30 11:54 WBC RBC Hgb Hct MCV MCH MCHC RDW Plt Count MPV Immature Gran % (Auto) Neut % (Auto) Lymph % (Auto) Shannon % (Auto) Eos % (Auto) Baso % (Auto) Lymph # (Auto) Shannon # (Auto) Eos # (Auto) Baso # (Auto) Abs Immat Gran (auto) Absolute Neuts (auto) Absolute Nucleated RBC Nucleated RBC % (auto) PT INR Sodium Cancelled 138 Potassium Cancelled 3.7 Chloride Cancelled 104 Carbon Dioxide Cancelled 27 Anion Gap Cancelled 11 L BUN Cancelled 13 Creatinine Cancelled 0.81 Estim Creat Clear Calc Cancelled 81.6 Estimated GFR Cancelled > 60 Random Glucose Cancelled 100 Fasting Glucose Lactic Acid Lactic Acid Fup @ 2Hr Calcium Cancelled 7.6 L Iron 148 TIBC 190 L % Saturation 78 H Unsat Iron Binding 42 Ferritin 553 H Total Bilirubin 5.3 H Direct Bilirubin 3.1 H AST 60 H ALT 28 Alkaline Phosphatase 110 Ammonia B-Natriuretic Peptide Total Protein 5.8 L Albumin 2.1 L Alpha Fetoprotein CA 19-9 Antigen Vitamin B12 25-OH Vitamin D Total Folate TSH Urine Color YELLOW Urine Appearance CLEAR Urine pH 7.0 Ur Specific [place] 1.015 Urine Protein NEG Urine Glucose (UA) NEG Urine Ketones NEG Urine Blood 2+ H Urine Nitrite NEG Ur Leukocyte Esterase NEG Urine RBC 10-14 H Urine WBC 0 Ur Squamous Epith Cells 1+ Amorphous Sediment 1+ Urine Bacteria 1+ Stool Occult Blood Zinc COVID-19 (JAS) COVID-19 Clin Com 06/29/20 06/30/20 06/30/20 11:54 05:58 07:41 WBC RBC Hgb 8.5 L Hct 25.5 L MCV MCH MCHC RDW Plt Count MPV Immature Gran % (Auto) Neut % (Auto) Lymph % (Auto) Shannon % (Auto) Eos % (Auto) Baso % (Auto) Lymph # (Auto) Shannon # (Auto) Eos # (Auto) Baso # (Auto) Abs Immat Gran (auto) Absolute Neuts (auto) Absolute Nucleated RBC Nucleated RBC % (auto) PT INR Sodium 138 Potassium 3.5 Chloride 104 Carbon Dioxide 26 Anion Gap 12 BUN 11 Creatinine 0.83 Estim Creat Clear Calc 79.6 Estimated GFR > 60 Random Glucose 96 Fasting Glucose Lactic Acid Lactic Acid Fup @ 2Hr Calcium 7.8 L Iron TIBC % Saturation Unsat Iron Binding Ferritin Total Bilirubin 5.1 H Direct Bilirubin 3.0 H AST 60 H ALT 28 Alkaline Phosphatase 112 Ammonia B-Natriuretic Peptide Total Protein 5.6 L Albumin 2.2 L Alpha Fetoprotein CA 19-9 Antigen Vitamin B12 25-OH Vitamin D Total Folate TSH Urine Color Urine Appearance Urine pH Ur Specific [place] Urine Protein Urine Glucose (UA) Urine Ketones Urine Blood Urine Nitrite Ur Leukocyte Esterase Urine RBC Urine WBC Ur Squamous Epith Cells Amorphous Sediment Urine Bacteria Stool Occult Blood NEG Zinc COVID-19 (JAS) COVID-19 Clin Com 07/01/20 07/01/20 06:15 07:01 WBC RBC Hgb 9.9 L Hct 30.1 L MCV MCH MCHC RDW Plt Count MPV Immature Gran % (Auto) Neut % (Auto) Lymph % (Auto) Shannon % (Auto) Eos % (Auto) Baso % (Auto) Lymph # (Auto) Shannon # (Auto) Eos # (Auto) Baso # (Auto) Abs Immat Gran (auto) Absolute Neuts (auto) Absolute Nucleated RBC Nucleated RBC % (auto) PT INR Sodium Cancelled Potassium Cancelled Chloride Cancelled Carbon Dioxide Cancelled Anion Gap Cancelled BUN Cancelled Creatinine Cancelled Estim Creat Clear Calc Cancelled Estimated GFR Cancelled Random Glucose Cancelled Fasting Glucose Lactic Acid Lactic Acid Fup @ 2Hr Calcium Cancelled Iron TIBC % Saturation Unsat Iron Binding Ferritin Total Bilirubin Direct Bilirubin AST ALT Alkaline Phosphatase Ammonia B-Natriuretic Peptide Total Protein Albumin Alpha Fetoprotein CA 19-9 Antigen Vitamin B12 25-OH Vitamin D Total Folate TSH Urine Color Urine Appearance Urine pH Ur Specific [place] Urine Protein Urine Glucose (UA) Urine Ketones Urine Blood Urine Nitrite Ur Leukocyte Esterase Urine RBC Urine WBC Ur Squamous Epith Cells Amorphous Sediment Urine Bacteria Stool Occult Blood Zinc COVID-19 (JAS) COVID-19 Clin Com Airway Mallampati Class: IV TM Dist: >3cm Neck ROM: Full Heart: RRR Lungs: CTA
--- NOTE | 2020-07-01 08:41 | P.OP_ITS ---
Operative Note Operative Note Date of Service: 07/01/20 Narrative: Pre-op diagnosis: Colon cancer screening, anemia, cirrhosis - screen for varices Procedure: FLEXIBLE TRANSORAL UPPER GASTROINTESTINAL ENDOSCOPY WITH BIOPSIES AND COLONOSCOPY TILL CECUM UPPER ENDOSCOPY Consent: Indications for the procedure and potential complications of bleeding, perforation, reaction to medications and missed diagnosis were discussed with the patient and informed consent was obtained. Instrument: Olympus GIF H 190 mid size upper endoscope Monitoring: Vital signs and clinical assessment, continuous EKG monitoring, Pulse oximetry, Carbon Dioxide monitoring and blood pressure monitoring were done throughout the procedure. Procedure: The patient was placed in the left lateral decubitis position and pre-procedure medications were administered and a bite block was placed. The endoscope was inserted into the mouth and advanced under direct vision to the third part of duodenum. A careful inspection was made as the upper endoscope was withdrawn including a retroflexed examination of the proximal stomach; Findings and interventions are described below. Findings: Larynx: Normal Esophagus: GE junction at 38 cms. No varices, esophagitis or Wakefield's. Stomach: Moderate diffuse portal gastropathy with a few small old clots in the stomach. A few 2-3 mm antral erosions - biopsies were obtained. Grade 2 flap valve and no gastric varices noted on retroflexed examination of the cardia. Duodenum: Normal bulb and descending duodenum Intervention: Biopsies as noted above COLONOSCOPY PROCEDURE NOTE Consent: Indications for the procedure and potential complications of bleeding, perforation, reaction to medications and missed diagnosis were discussed with the patient and informed consent was obtained. Instrument: Olympus PCF H 190 L variable stiffness pediatric colonoscope Monitoring: Vital signs and clinical assessment, intermittent blood pressure monitoring, continuous EKG monitoring, Pulse oximetry and Carbon Dioxide monitoring were done throughout the procedure. Colon withdrawl time was 20 minutes. Procedure: The patient was placed in the left lateral decubitis position and pre-procedure medications were administered. After a digital rectal examination of the ano-rectum, the video colonoscope was inserted into the rectum and advanced through the colon to the cecum. The colonoscope was slowly withdrawn in a retrograde panoramic fashion and the colon mucosa was carefully examined including a retroflexed view of the rectum. Findings and interventions are described below. Procedure Difficulty: Without difficulty Findings: Terminal Ileum: Not evaluated Cecum: Normal Ascending Colon: Normal Transverse Colon: Normal Descending Colon: Normal Sigmoid Colon: Moderate diverticulosis Rectum: Normal Ano-rectum: Normal Colon preparation: Good after copious irrigation Impression and Post Procedure Diagnosis: Endoscopy Findings: ESOPHAGUS: No varices noted STOMACH: Moderate portal gastropathy with a few small old clots in the stomach - likely minor bleeding from PHG. Antral erosions, no gastric varices Colonoscopy Findings: No polyps were detected. Moderate diverticulosis seen in the sigmoid colon Plan: Await pathology results Patient has an appointment on 07/10/20 in the [facility] with Ozzie Zimmerman M.D.- . Repeat Colonoscopy in 5 yrs. Above findings were reviewed with the patient. Surgeon: Ozzie Zimmerman MD Anesthesia: MAC (Dr Cornelius) Estimated blood loss (mL): 3 Pathology: other (A. Gastric antrum) Condition: stable Disposition: PACU
--- NOTE | 2020-07-01 08:41 | MHC.SHP ---
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 Work Allergies: Allergies Allergy/AdvReac Type Severity Reaction Status Date / Time Sulfa (Sulfonamide Allergy Intermediate Itching Verified 06/28/20 22:19 Antibiotics) [SULFA (SULFONAMIDE ANTIBIOTICS)] Omeprazole Allergy Unknown Coughing Uncoded 06/26/20 10:30 steroids Allergy Unknown hallucinations, Uncoded 06/26/20 10:30 mouth sores STEROIDS AdvReac Severe HALLUCINATI Uncoded 06/26/20 10:30 ONS/NAUSEA/ DIZZINESS Certain chemo medication AdvReac Unknown Hospitalize Uncoded 06/26/20 10:30 d Plan I have reviewed the history and physical and performed a pertinent physical examination on my patient. No changes have occurred unless specified.
--- NOTE | 2020-07-01 09:34 | HO.ANESPROP2 ---
FORMERLY [facility] Past Medical History Medical History Cirrhosis of liver Family History Family History Father No problems noted. Mother History of renal pelvis cancer Brother No problems noted. Sister No problems noted. Son No problems noted. Daughter No problems noted. Surgical History Surgical History History of esophagogastroduodenoscopy (EGD) Hx of colonoscopy Hx of right mastectomy Social History Social History Household Members: Spouse Housing: House Alcohol intake: never Smoking Status: Never smoker Second Hand Smoke Exposure: No service: No Current occupational status: retired [employer] Allergies Allergy/AdvReac Type Severity Reaction Status Date / Time Sulfa (Sulfonamide Allergy Intermediate Itching Verified 06/28/20 22:19 Antibiotics) [SULFA (SULFONAMIDE ANTIBIOTICS)] Omeprazole Allergy Unknown Coughing Uncoded 06/26/20 10:30 steroids Allergy Unknown hallucinations, Uncoded 06/26/20 10:30 mouth sores STEROIDS AdvReac Severe HALLUCINATI Uncoded 06/26/20 10:30 ONS/NAUSEA/ DIZZINESS Certain chemo medication AdvReac Unknown Hospitalize Uncoded 06/26/20 10:30 d Home Medications Medication Instructions Recorded Confirmed Type cholecalciferol (vitamin D3) 25 25 mcg PO DAILY 06/26/20 06/28/20 History mcg (1,000 unit) tablet mecobalamin (vitamin B12) 1,000 1,000 mcg PO DAILY 06/26/20 06/28/20 History mcg chewable tablet multivitamin 1 tab PO DAILY 06/26/20 06/28/20 History furosemide 1 tab PO DAILY 06/28/20 06/28/20 History Exam Exam Date and Time: July 01, 202034 Height,Weight and Vital Signs: Height 5 ft 6 in Weight 108.3 kg Last Vital Signs Temp 98.0 F 07/01/20 08:08 Pulse 95 07/01/20 08:08 Resp 20 07/01/20 08:08 BP 129/59 L 07/01/20 08:08 Pulse Ox 99 07/01/20 08:08 Pertinent Lab Results Pertinent Lab Results: Laboratory Tests 06/27/20 06/27/20 06/27/20 14:34 14:35 14:35 WBC 6.7 RBC 2.86 L Hgb 10.2 L Hct 31.4 L MCV 109.8 H MCH 35.7 H MCHC 32.5 RDW 15.3 Plt Count 121 L MPV 10.1 Immature Gran % (Auto) 0.4 Neut % (Auto) 63.5 Lymph % (Auto) 20.5 [place] % (Auto) 12.8 H Eos % (Auto) 1.6 Baso % (Auto) 1.2 Lymph # (Auto) 1.4 [place] # (Auto) 0.9 Eos # (Auto) 0.1 Baso # (Auto) 0.1 Abs Immat Gran (auto) 0.03 Absolute Neuts (auto) 4.3 Absolute Nucleated RBC 0.000 Nucleated RBC % (auto) 0.0 PT INR Sodium 140 Potassium 4.0 Chloride 105 Carbon Dioxide 27 Anion Gap 12 BUN 16 Creatinine 0.84 Estim Creat Clear Calc TNP Estimated GFR > 60 Random Glucose TNP Fasting Glucose 96 Lactic Acid Lactic Acid Fup @ 2Hr Calcium 7.9 L Iron TIBC % Saturation Unsat Iron Binding Ferritin Total Bilirubin 5.9 H Direct Bilirubin AST 74 H ALT 33 H Alkaline Phosphatase 130 H D Ammonia 70 H B-Natriuretic Peptide Total Protein 6.7 Albumin 2.2 L Alpha Fetoprotein CA 19-9 Antigen Vitamin B12 25-OH Vitamin D Total Folate TSH 1.33 Urine Color Urine Appearance Urine pH Ur Specific [place] Urine Protein Urine Glucose (UA) Urine Ketones Urine Blood Urine Nitrite Ur Leukocyte Esterase Urine RBC Urine WBC Ur Squamous Epith Cells Amorphous Sediment Urine Bacteria Stool Occult Blood Zinc COVID-19 (JAS) COVID-19 Clin Com 06/27/20 06/27/20 06/27/20 14:35 14:35 14:35 WBC RBC Hgb Hct MCV MCH MCHC RDW Plt Count MPV Immature Gran % (Auto) Neut % (Auto) Lymph % (Auto) [place] % (Auto) Eos % (Auto) Baso % (Auto) Lymph # (Auto) [place] # (Auto) Eos # (Auto) Baso # (Auto) Abs Immat Gran (auto) Absolute Neuts (auto) Absolute Nucleated RBC Nucleated RBC % (auto) PT INR Sodium Potassium Chloride Carbon Dioxide Anion Gap BUN Creatinine Estim Creat Clear Calc Estimated GFR Random Glucose Fasting Glucose Lactic Acid Lactic Acid Fup @ 2Hr Calcium Iron TIBC % Saturation Unsat Iron Binding Ferritin Total Bilirubin Direct Bilirubin AST ALT Alkaline Phosphatase Ammonia B-Natriuretic Peptide Total Protein Albumin Alpha Fetoprotein 4.4 CA 19-9 Antigen Vitamin B12 > 2000 H 25-OH Vitamin D Total 12.9 Folate 14.3 TSH Urine Color Urine Appearance Urine pH Ur Specific [place] Urine Protein Urine Glucose (UA) Urine Ketones Urine Blood Urine Nitrite Ur Leukocyte Esterase Urine RBC Urine WBC Ur Squamous Epith Cells Amorphous Sediment Urine Bacteria Stool Occult Blood Zinc COVID-19 (JAS) COVID-19 [place] 06/27/20 06/27/20 06/27/20 14:35 17:35 17:35 WBC RBC Hgb Hct MCV MCH MCHC RDW Plt Count MPV Immature Gran % (Auto) Neut % (Auto) Lymph % (Auto) [place] % (Auto) Eos % (Auto) Baso % (Auto) Lymph # (Auto) [place] # (Auto) Eos # (Auto) Baso # (Auto) Abs Immat Gran (auto) Absolute Neuts (auto) Absolute Nucleated RBC Nucleated RBC % (auto) PT 27.2 H INR 2.3 H Sodium Potassium Chloride Carbon Dioxide Anion Gap BUN Creatinine Estim Creat Clear Calc Estimated GFR Random Glucose Fasting Glucose Lactic Acid 2.1 H* Lactic Acid Fup @ 2Hr Calcium Iron TIBC % Saturation Unsat Iron Binding Ferritin Total Bilirubin Direct Bilirubin AST ALT Alkaline Phosphatase Ammonia B-Natriuretic Peptide Total Protein Albumin Alpha Fetoprotein CA 19-9 Antigen Vitamin B12 25-OH Vitamin D Total Folate TSH Urine Color Urine Appearance Urine pH Ur Specific [place] Urine Protein Urine Glucose (UA) Urine Ketones Urine Blood Urine Nitrite Ur Leukocyte Esterase Urine RBC Urine WBC Ur Squamous Epith Cells Amorphous Sediment Urine Bacteria Stool Occult Blood Zinc 27 L COVID-19 (JAS) COVID-19 [place] 06/27/20 06/27/20 06/27/20 17:35 17:35 20:24 WBC RBC Hgb Hct MCV MCH MCHC RDW Plt Count MPV Immature Gran % (Auto) Neut % (Auto) Lymph % (Auto) [place] % (Auto) Eos % (Auto) Baso % (Auto) Lymph # (Auto) [place] # (Auto) Eos # (Auto) Baso # (Auto) Abs Immat Gran (auto) Absolute Neuts (auto) Absolute Nucleated RBC Nucleated RBC % (auto) PT INR Sodium Potassium Chloride Carbon Dioxide Anion Gap BUN Creatinine Estim Creat Clear Calc Estimated GFR Random Glucose Fasting Glucose Lactic Acid Lactic Acid Fup @ 2Hr 1.3 Calcium Iron TIBC % Saturation Unsat Iron Binding Ferritin Total Bilirubin Direct Bilirubin AST ALT Alkaline Phosphatase Ammonia B-Natriuretic Peptide 135 H Total Protein Albumin Alpha Fetoprotein CA 19-9 Antigen Vitamin B12 25-OH Vitamin D Total Folate TSH Urine Color Urine Appearance Urine pH Ur Specific [place] Urine Protein Urine Glucose (UA) Urine Ketones Urine Blood Urine Nitrite Ur Leukocyte Esterase Urine RBC Urine WBC Ur Squamous Epith Cells Amorphous Sediment Urine Bacteria Stool Occult Blood Zinc COVID-19 (JAS) Negative COVID-19 [place] See Note 06/28/20 06/28/20 06/29/20 10:15 10:15 07:30 WBC 6.4 RBC 2.32 L Hgb 8.3 L Hct 25.3 L MCV 109.1 H MCH 35.8 H MCHC 32.8 RDW 15.2 Plt Count 89 L D MPV 10.3 Immature Gran % (Auto) 0.3 Neut % (Auto) 58.7 Lymph % (Auto) 23.6 [place] % (Auto) 12.7 H Eos % (Auto) 3.8 Baso % (Auto) 0.9 Lymph # (Auto) 1.5 [place] # (Auto) 0.8 Eos # (Auto) 0.2 Baso # (Auto) 0.1 Abs Immat Gran (auto) 0.02 Absolute Neuts (auto) 3.8 Absolute Nucleated RBC 0.000 Nucleated RBC % (auto) 0.0 PT INR Sodium Potassium Chloride Carbon Dioxide Anion Gap BUN Creatinine Estim Creat Clear Calc Estimated GFR Random Glucose 105 Fasting Glucose Lactic Acid Lactic Acid Fup @ 2Hr Calcium Iron TIBC % Saturation Unsat Iron Binding Ferritin Total Bilirubin Direct Bilirubin AST ALT Alkaline Phosphatase Ammonia B-Natriuretic Peptide Total Protein 6.7 Albumin Alpha Fetoprotein CA 19-9 Antigen 41 H Vitamin B12 25-OH Vitamin D Total Folate TSH Urine Color Urine Appearance Urine pH Ur Specific [place] Urine Protein Urine Glucose (UA) Urine Ketones Urine Blood Urine Nitrite Ur Leukocyte Esterase Urine RBC Urine WBC Ur Squamous Epith Cells Amorphous Sediment Urine Bacteria Stool Occult Blood Zinc COVID-19 (JAS) COVID-19 [place] Com 06/29/20 06/29/20 06/29/20 07:30 07:30 11:54 WBC RBC Hgb Hct MCV MCH MCHC RDW Plt Count MPV Immature Gran % (Auto) Neut % (Auto) Lymph % (Auto) [place] % (Auto) Eos % (Auto) Baso % (Auto) Lymph # (Auto) [place] # (Auto) Eos # (Auto) Baso # (Auto) Abs Immat Gran (auto) Absolute Neuts (auto) Absolute Nucleated RBC Nucleated RBC % (auto) PT INR Sodium Cancelled 138 Potassium Cancelled 3.7 Chloride Cancelled 104 Carbon Dioxide Cancelled 27 Anion Gap Cancelled 11 L BUN Cancelled 13 Creatinine Cancelled 0.81 Estim Creat Clear Calc Cancelled 81.6 Estimated GFR Cancelled > 60 Random Glucose Cancelled 100 Fasting Glucose Lactic Acid Lactic Acid Fup @ 2Hr Calcium Cancelled 7.6 L Iron 148 TIBC 190 L % Saturation 78 H Unsat Iron Binding 42 Ferritin 553 H Total Bilirubin 5.3 H Direct Bilirubin 3.1 H AST 60 H ALT 28 Alkaline Phosphatase 110 Ammonia B-Natriuretic Peptide Total Protein 5.8 L Albumin 2.1 L Alpha Fetoprotein CA 19-9 Antigen Vitamin B12 25-OH Vitamin D Total Folate TSH Urine Color YELLOW Urine Appearance CLEAR Urine pH 7.0 Ur Specific [place] 1.015 Urine Protein NEG Urine Glucose (UA) NEG Urine Ketones NEG Urine Blood 2+ H Urine Nitrite NEG Ur Leukocyte Esterase NEG Urine RBC 10-14 H Urine WBC 0 Ur Squamous Epith Cells 1+ Amorphous Sediment 1+ Urine Bacteria 1+ Stool Occult Blood Zinc COVID-19 (JAS) COVID-19 Clin Com 06/29/20 06/30/20 06/30/20 11:54 05:58 07:41 WBC RBC Hgb 8.5 L Hct 25.5 L MCV MCH MCHC RDW Plt Count MPV Immature Gran % (Auto) Neut % (Auto) Lymph % (Auto) [place] % (Auto) Eos % (Auto) Baso % (Auto) Lymph # (Auto) [place] # (Auto) Eos # (Auto) Baso # (Auto) Abs Immat Gran (auto) Absolute Neuts (auto) Absolute Nucleated RBC Nucleated RBC % (auto) PT INR Sodium 138 Potassium 3.5 Chloride 104 Carbon Dioxide 26 Anion Gap 12 BUN 11 Creatinine 0.83 Estim Creat Clear Calc 79.6 Estimated GFR > 60 Random Glucose 96 Fasting Glucose Lactic Acid Lactic Acid Fup @ 2Hr Calcium 7.8 L Iron TIBC % Saturation Unsat Iron Binding Ferritin Total Bilirubin 5.1 H Direct Bilirubin 3.0 H AST 60 H ALT 28 Alkaline Phosphatase 112 Ammonia B-Natriuretic Peptide Total Protein 5.6 L Albumin 2.2 L Alpha Fetoprotein CA 19-9 Antigen Vitamin B12 25-OH Vitamin D Total Folate TSH Urine Color Urine Appearance Urine pH Ur Specific [place] Urine Protein Urine Glucose (UA) Urine Ketones Urine Blood Urine Nitrite Ur Leukocyte Esterase Urine RBC Urine WBC Ur Squamous Epith Cells Amorphous Sediment Urine Bacteria Stool Occult Blood NEG Zinc COVID-19 (JAS) COVID-19 [place] Com 07/01/20 07/01/20 06:15 07:01 WBC RBC Hgb 9.9 L Hct 30.1 L MCV MCH MCHC RDW Plt Count MPV Immature Gran % (Auto) Neut % (Auto) Lymph % (Auto) [place] % (Auto) Eos % (Auto) Baso % (Auto) Lymph # (Auto) [place] # (Auto) Eos # (Auto) Baso # (Auto) Abs Immat Gran (auto) Absolute Neuts (auto) Absolute Nucleated RBC Nucleated RBC % (auto) PT INR Sodium Cancelled Potassium Cancelled Chloride Cancelled Carbon Dioxide Cancelled Anion Gap Cancelled BUN Cancelled Creatinine Cancelled Estim Creat Clear Calc Cancelled Estimated GFR Cancelled Random Glucose Cancelled Fasting Glucose Lactic Acid Lactic Acid Fup @ 2Hr Calcium Cancelled Iron TIBC % Saturation Unsat Iron Binding Ferritin Total Bilirubin Direct Bilirubin AST ALT Alkaline Phosphatase Ammonia B-Natriuretic Peptide Total Protein Albumin Alpha Fetoprotein CA 19-9 Antigen Vitamin B12 25-OH Vitamin D Total Folate TSH Urine Color Urine Appearance Urine pH Ur Specific [place] Urine Protein Urine Glucose (UA) Urine Ketones Urine Blood Urine Nitrite Ur Leukocyte Esterase Urine RBC Urine WBC Ur Squamous Epith Cells Amorphous Sediment Urine Bacteria Stool Occult Blood Zinc COVID-19 (JAS) COVID-19 [place] Assessment and Plan Assessment Anesthesia Assessment: Anesthesia Plan Discussed and Chart Reviewed Final Anesthetic Review ASA Class: III Final Preanesthetic Review: No Changes in Pt Med Stat, Meds/Allgs Chart Reviewed, Consent Obtained/Reviewed, Anes Risks/Benef Reviewed and DNR Form (If Appl.) Patient Risk: Intermediate Procedure Risk: Intermediate Anesthetic Plan Anesthetic Plan: MAC: Disposition: Standard PACU
--- NOTE | 2020-07-01 10:18 | HO.POSTANES ---
Post Anesthesia Evaluation Post Anesthesia Evaluation Vital Signs: Vital Signs Temp Pulse Resp BP Pulse Ox 07/01/20 08:08 98.0 F 95 20 129/59 L 99 07/01/20 04:00 97.4 F 92 16 153/70 H 97 07/01/20 00:00 98.4 F 92 20 139/68 95 Anesthesia: Monitored Mental Status: Awake Pain Control: Satisfactory Nausea/Vomiting: None Hydration: Adequate Anesthesia-Related Issues: No Anes. Related Issues
--- NOTE | 2020-07-01 12:02 | HO.POSTANES ---
Post Anesthesia Evaluation Post Anesthesia Evaluation Vital Signs: Vital Signs Temp Pulse Resp BP Pulse Ox 07/01/20 11:13 97.8 F 92 18 106/43 L 92 07/01/20 10:30 99 16 118/50 L 95 07/01/20 10:15 97.1 F 102 H 16 123/57 L 99 07/01/20 08:08 98.0 F 95 20 129/59 L 99 07/01/20 04:00 97.4 F 92 16 153/70 H 97 Anesthesia: Monitored Mental Status: Awake Pain Control: Satisfactory Nausea/Vomiting: None (A) Hydration: Adequate Anesthesia-Related Issues: No Anes. Related Issues
[2020-07-01 12:31] LABS: MANUAL DIFF FLAG NO
[2020-07-01 12:40] LABS: Basophils Absolute Auto 0.1 X10*3/uL (0.0-0.2); Basophils Percent Auto 1.4 % (0-2); Eosinophils Absolute Auto 0.1 X10*3/uL (0.0-0.4); Eosinophils Percent Auto 1.2 % (0-4); Hematocrit 27.9 % (37-47); Hemoglobin 9.1 g/dl (12.0-16.0); Imm Gran Abs Auto 0.03 X10*3/uL (0.00-0.03); Imm Gran Pct Auto 0.6 % (0.0-0.4); Lymphocytes Absolute Auto 0.7 X10*3/uL (1.2-4.9); Lymphocytes Percent Auto 14.5 % (20-40); Mean Corpuscular HGB Conc 32.6 g/dl (31.0-35.0); Mean Corpuscular Hemoglobin 35.5 pg (27.0-33.0); Mean Platelet Volume 10.1 fL (9.4-12.3); Monocytes Absolute Auto 0.4 X10*3/uL (0.1-1.2); Monocytes Percent Auto 7.2 % (2-11); Neutrophils Absolute Auto 3.9 X10*3/uL (2.0-8.3); Neutrophils Percent Auto 75.1 % (45-73); Red Blood Count 2.56 X10*6/uL (4.20-5.50); Red Cell Distribution Width 15.2 % (11.0-16.0); White Blood Count 5.1 X10*3/uL (4.8-10.8)
[2020-07-01 12:45] LABS: Platelet Count 80 X10*3/uL (160-400)
[2020-07-01 13:05] LABS: Anion Gap 12 (12-20); Blood Urea Nitrogen 12 mg/dL (9-16); Calcium 7.9 mg/dL (8.4-10.2); Carbon Dioxide 27 mmol/L (22-29); Chloride 101 mmol/L (96-108); Creatinine Clr Calc Pharmacy 76.8; Estimated Glomerular Filt Rate > 60; Glucose Random 96 mg/dL (60-115); Potassium 3.7 mmol/l (3.3-5.1); Sodium 136 mmol/L (135-145)
--- NOTE | 2020-07-01 13:18 | MHC.CM.PN ---
PER MULTIDISCIPLINARY ROUNDS NO PLAN FOR DISCHARGE TODAY, PLAN CONTINUES TO BE HOME SELF-CARE, FAMILY TO TRANSPORT,
[2020-07-01] MEDS: Lactulose 20 GM/30 ML SOLUTION PO (13:21)
[2020-07-01] MEDS: Sennosides 8.6 MG TABLET 17.2 MG PO (13:22)
[2020-07-01] MEDS: Docusate Sodium 100 MG CAPSULE PO ×2 (13:22→19:37)
[2020-07-01] MEDS: Spironolactone 25 MG TABLET 50 MG PO (13:22)
[2020-07-01] MEDS: Furosemide 40 MG/4 ML VIAL IVPUSH (13:22)
--- NOTE | 2020-07-01 14:20 | HO.PM.IMPN ---
Subjective Subjective Date of Service: 07/02/20 Interval History: CHF exacerbation Review of Systems Shortness of breath noble seems slowly improving, going for EGD and colonoscopy today. Denies any chest pain or shortness of breath or abdominal pain. Physical Exam Vital Signs: Vital Signs: Last Vital Signs Temp 97.6 F 07/01/20 12:00 Pulse 92 07/01/20 12:00 Resp 18 07/01/20 12:00 BP 118/40 L 07/01/20 12:00 Pulse Ox 100 07/01/20 12:00 Body Mass Index 38.5 Physical exam: Constitutional: Seems generalized weak Eyes : No erythema or discharge Cvs: [id number], [id number] , no murmur res: clear to auscultation ,no rhonchii or wheezing abd: no rebound or guarding ,nt, bs present. ext pulses present , no cyanosis neuro: axo3 , nonfocal. Objective Data Current Medications Generic Name Dose Route Start Last Admin Trade Name Freq PRN Reason Stop Dose Admin Docusate Sodium 100 mg 06/28/20 12:51 07/01/20 13:22 Docusate Sodium 100 Mg Capsule PO 100 mg BID ORALIA Administration Furosemide 40 mg 06/28/20 09:00 07/01/20 13:22 Furosemide 40 Mg/4 Ml Vial IVPUSH 40 mg DAILY [facility] Administration Protocol Lactulose 20 gm 06/28/20 09:00 07/01/20 13:21 Lactulose 20 Gm/30 Ml Solution PO 20 gm BID ORALIA Administration Senna 17.2 mg 06/29/20 12:52 07/01/20 13:22 Sennosides 8.6 Mg Tablet PO 17.2 mg DAILY [facility] Administration Sodium Chloride 3 ml 06/28/20 08:00 07/01/20 13:21 0.9 % Sodium Chloride Flush 3 Ml Syringe IVFLUSH 3 ml QSHIFT [facility] Administration Spironolactone 50 mg 06/28/20 09:00 07/01/20 13:22 Spironolactone 25 Mg Tablet PO 50 mg DAILY [facility]AL[facility] Administration Protocol Labs CBC & Chem 7: 07/01/20 12:15 07/02/20 06:06 Microbiology Microbiology Results: Microbiology 06/27/20 19:16 Blood - Venous Blood Culture - Preliminary No growth after 48 hours. 06/27/20 17:35 Blood - Venous Blood Culture - Preliminary No growth after 48 hours. Assessment and Plan (1) Cirrhosis of liver with ascites: Status: Acute (2) CHF (congestive heart failure): Problem details: Cardiology consult Status: Acute Assessment and Plan: 70 year old woman with cirrhosis presented with increasing leg edema, fatigue and abd girth with poor PO intake. Concern for portal vein thrombosis and possible volume overload/CHF with the leg edema. 1.Cirrhosis, portal vein thrombosis. Will continue diuresis I/O Daily weights Monitor LFTs-seems going up since last lfts' ultrasound guided paracentesis for diagnostic reasons-could not drain any fluid because of minimal fluid as per IR.. Seen by GI: for end-stage liver disease likely related to fatty liver/autoimmune hepatitis. 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 Patient was diagnosed with autoimmune hepatitis in the past in treated with azathioprine for 4-5 years- She stopped this on her own due to concern for increased cancer risk after she was diagnosed with breast cancer. Patient was referred to GI due to an increase in her liver function tests recently. given trail of Prednisone 40 mg daily and stopped after 1 day since she developed MRSA bacteremia of unclear source. Echo showed no vegetation, MRI of back no new abscess or diskitis. ID recommended IV Vanco for total 4 weeks that time . On follow-up outpatiently - pt was reluctant to resume Prednisone treatment. Ca19.9, Afp- pending Constipation - laxatives clear liquid elevated inr still elevated , diuretics, lactulose, continue laxatives - given iv vitamin K inr still elevated 2.7 h/h stable around 9 EGD-some gastritis ,colonoscopy -seems fine and elevated INR. add albumin po hydration 2.Leg edema, ?CHF: Echo ordered Aldactone 50mg and Lasix 40mg IV. Cardio evaluation noted-will continue diuresis. 3.: Acute on chronic anemia macrocytic: B12 and folate recently was normal Will add iron studies pending, fecal occult blood neg Probably she has anemia of chronic disease since has liver disease and macrocytic anemia? Well monitor H&H- patient denies any history of saadia bleeding or melena DVT prophylaxis: Venodyne boots since anemia issue
[2020-07-01 14:22] LABS: INTERNATIONAL NORM RATIO 2.7 (0.9-1.1); Prothrombin Time 32.7 SEC (10.8-13.0)
[2020-07-01] MEDS: Albumin Human 25 % 100 ML IV ×2 (14:46→17:05)
[2020-07-02] VITALS (7 sets, daily range): BP systolic 110–148; BP diastolic 48–75; PULSE 82–90; RESP 16–20; TEMP 36.6–37.2; O2SAT 95–98
[2020-07-02 07:22] LABS: Anion Gap 9 (12-20); Blood Urea Nitrogen 14 mg/dL (9-16); Calcium 8.1 mg/dL (8.4-10.2); Carbon Dioxide 30 mmol/L (22-29); Chloride 102 mmol/L (96-108); Creatinine Clr Calc Pharmacy 74.3; Estimated Glomerular Filt Rate > 60; Glucose Random 84 mg/dL (60-115); Potassium 3.5 mmol/l (3.3-5.1); Sodium 137 mmol/L (135-145)
[2020-07-02] MEDS: 0.9 % Sodium Chloride Flush 3 ML SYRINGE IVFLUSH ×3 (08:55→20:03)
[2020-07-02] MEDS: Phytonadione (Vit K1) Oral 10 MG/ML AMPUL PO (13:44)
--- NOTE | 2020-07-02 14:05 | P.PNIM_ITS ---
Subjective Subjective Date of Service: 07/03/20 Interval History: edema , sob Review of Systems sob seems to be improved , denies any chest pain or abdominal pain or fever chills. Physical Exam Vital Signs: Vital Signs: Last Vital Signs Temp 98.2 F 07/02/20 11:25 Pulse 90 07/02/20 11:25 Resp 17 07/02/20 11:25 BP 140/64 H 07/02/20 11:25 Pulse Ox 95 07/02/20 11:25 Body Mass Index 38.5 Physical exam: Constitutional: Seems generalized weak. Eyes : No erythema or discharge. Cvs: [id number], [id number] , no murmur. res: clear to auscultation ,no rhonchii or wheezing. abd: no rebound or guarding ,nt, bs present. ext pulses present , no cyanosis. neuro: axo3 , nonfocal. Objective Data Current Medications Generic Name Dose Route Start Last Admin Trade Name Freq PRN Reason Stop Dose Admin Docusate Sodium 100 mg 06/28/20 12:51 07/02/20 08:56 Docusate Sodium 100 Mg Capsule PO Not Given BID [facility]ALIA Furosemide 40 mg 06/28/20 09:00 07/01/20 13:22 Furosemide 40 Mg/4 Ml Vial IVPUSH 40 mg DAILY [facility] Administration Protocol Lactulose 20 gm 06/28/20 09:00 07/02/20 08:56 Lactulose 20 Gm/30 Ml Solution PO Not Given BID [facility] Senna 17.2 mg 06/29/20 12:52 07/02/20 08:56 Sennosides 8.6 Mg Tablet PO Not Given DAILY [facility] Sodium Chloride 3 ml 06/28/20 08:00 07/02/20 08:55 0.9 % Sodium Chloride Flush 3 Ml Syringe IVFLUSH 3 ml QSHIFT [facility] Administration Spironolactone 50 mg 06/28/20 09:00 07/01/20 13:22 Spironolactone 25 Mg Tablet PO 50 mg DAILY [facility] Administration Protocol Labs CBC & Chem 7: 07/03/20 08:45 07/02/20 06:06 Microbiology Microbiology Results: Microbiology 06/27/20 19:16 Blood - Venous Blood Culture - Preliminary No growth after 48 hours. 06/27/20 17:35 Blood - Venous Blood Culture - Preliminary No growth after 48 hours. Assessment and Plan (1) Cirrhosis of liver with ascites: Status: Acute (2) CHF (congestive heart failure): Problem details: Cardiology consult Status: Acute Assessment and Plan: 70 year old woman with cirrhosis presented with increasing leg edema, fatigue and abd girth with poor PO intake. Concern for portal vein thrombosis and possible volume overload/CHF with the leg edema. 1.Cirrhosis, portal vein thrombosis. Will continue diuresis I/O Daily weights Monitor LFTs-bilirubin trending down ultrasound guided paracentesis for diagnostic reasons-could not drain any fluid because of minimal fluid as per IR.. Seen by GI: prior hx: for end-stage liver disease likely related to fatty liver/autoimmune hepatitis. 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 Patient was diagnosed with autoimmune hepatitis in the past in treated with azathioprine for 4-5 years- She stopped this on her own due to concern for increased cancer risk after she was diagnosed with breast cancer. Patient was referred to GI due to an increase in her liver function tests recently. given trail of Prednisone 40 mg daily and stopped after 1 day since she developed MRSA bacteremia of unclear source. Echo showed no vegetation, MRI of back no new abscess or diskitis. ID recommended IV Vanco for total 4 weeks that time . On follow-up outpatiently - pt was reluctant to resume Prednisone treatment. Ca19.9, Afp- pending elevated inr h/h stable around 9.1 cardiac diet Constipation - laxatives elevated inr still elevated , diuretics, lactulose, continue laxatives - given iv vitamin K,inr still elevated 2.7, could not able to do INR today probably missing question clotting factors-discussed with the Hematology Dr. Jacob will add p.o. vitamin K. And get INR in the morning. h/h stable around 9 EGD-some gastritis ,colonoscopy -seems fine and elevated INR. add albumin po hydration 2.Leg edema, ?CHF: Echo: 65-70% Aldactone 50mg and Lasix 40mg IV hold will switch to po lasix in am. Cardio evaluation-less likely CHF, seems to be her symptoms related to liver disease. 3.: Acute on chronic anemia macrocytic: B12 and folate recently was normal iron studies noted ,fecal occult blood neg Probably she has anemia of chronic disease Well monitor H&H- patient denies any history of saadia bleeding or melena DVT prophylaxis: Venodyne boots since anemia issue Patient should be out of bed to chair and have activity at least 4 times a day- discussed with the staff in detail.
[2020-07-02] MEDS: Lactulose 20 GM/30 ML SOLUTION PO (20:02)
[2020-07-02] MEDS: Docusate Sodium 100 MG CAPSULE PO (20:03)
[2020-07-03 03:58] VITALS: BP 145/50; PULSE 78; RESP 19; TEMP 36.8; O2SAT 98
[2020-07-03 07:58] VITALS: BP 146/64; PULSE 97; RESP 19; TEMP 37.1; O2SAT 95
[2020-07-03 09:05] LABS: Hematocrit 28.9 % (37-47); Hemoglobin 9.4 g/dl (12.0-16.0)
[2020-07-03 09:17] LABS: INTERNATIONAL NORM RATIO 2.5 (0.9-1.1); Prothrombin Time 29.5 SEC (10.8-13.0)
[2020-07-03] MEDS: 0.9 % Sodium Chloride Flush 3 ML SYRINGE IVFLUSH (09:26)
[2020-07-03 11:53] VITALS: BP 156/66; PULSE 86; RESP 18; TEMP 37.1; O2SAT 94
--- NOTE | 2020-07-03 12:19 | MHC.CM.PN ---
PT DISCHARGING TODAY HOME SELF-CARE, FAMILY TO TRANSPORT.
[2020-07-03] MEDS: Phytonadione (Vit K1) Oral 10 MG/ML AMPUL PO (12:24)
--- NOTE | 2020-07-03 12:37 | PM.DS ---
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 Consults: 06/28/20 04:23 Consult to Cardiology Routine Consulting Provider: Axel Burnham Reason for consultation: Leg edema in cirrhosis, concern for CHF/volume overload as well Has provider been notified: No Consult to Gastroenterology Routine Consulting Provider: Ozzie Zimmerman Reason for consultation: cirrhosis, portal vein thrombosis Has provider been notified: No DS: Diagnosis Discharge Diagnosis (1) Cirrhosis of liver with ascites: Status: Acute (2) CHF (congestive heart failure): Status: Acute Problem details: Cardiology consult DS: Medications Discharge Medications Home Medications: Home Medications Medication Instructions Recorded Confirmed cholecalciferol (vitamin D3) 25 25 mcg PO DAILY 06/26/20 06/28/20 mcg (1,000 unit) tablet mecobalamin (vitamin B12) 1,000 1,000 mcg PO DAILY 06/26/20 06/28/20 mcg chewable tablet multivitamin 1 tab PO DAILY 06/26/20 06/28/20 furosemide 1 tab PO DAILY 06/28/20 06/28/20 Previous Rx's Medication Instructions Recorded polyethylene glycol 3350 17 17 g PO DAILY 30 Days #510 g 06/26/20 gram/dose oral powder spironolactone 50 mg tablet 50 mg PO QAM 30 Days #30 tab 06/26/20 DS: Summary Hospital Course Hospital Course: 70 year old woman with cirrhosis thought due to autoimmune vs MARTEL 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 She has cirrhosis and also had increasing leg edema and poor PO intake recently. Patient states she can barely keep sips of water down and hasn't eaten in several days. There was concern for portal vein thrombosis on ultrasound today so CT scan was done in ED which did suggest thrombosis in the portal vein. Per Dr Zimmerman it could be chronic so patient was not started on anticoagulation this evening. Patient feels constipated and has fatigue. Also noted mild dyspnea and poor PO intake. No vomiting but has nausea. No fevers or chills. Hospital Course problem [place] section: 70 year old woman with cirrhosis presented with increasing leg edema, fatigue and abd girth with poor PO intake. Concern for portal vein thrombosis and possible volume overload/CHF with the leg edema. 1.Cirrhosis, portal vein thrombosis. Patient given shortness of breath and edema, probable ascites. Patient was started on IV diuretics and subsequently patient shortness of breath improved. Paracentesis was tried but was not successful due to not enough fluid. As per GI patient -in the past was tried on a with AZT and prednisone for her hepatitis. Portal vein thrombosis told to be chronic so no anticoagulation recommended as per GI. Ca19.9, Afp- pending During this admission EGD and colonoscopy was done: Moderate portal gastropathy with a few small old clots in the stomach - likely minor bleeding from PHG. Antral erosions, no gastric varices, Colonoscopy Findings:No polyps were detected.Moderate diverticulosis seen in the sigmoid colon. Recommended to start on PPIs p.o. gastric pathology pending In addition patient had elevated INR and intermittently also had difficult to measure INR which was question of probable low clotting factor and because of that patient was given vitamin K and subsequently INR was better around 2.5 patient needs to monitor INR out patiently with PCP. Initially also was thought to have probable CHF related shortness of breath but seen by Cardiology and echo was done:ejection fraction is between 65-70%. There is no evidence of regional wall motion abnormalities. Discussed with Cardiology less likely CHF more likely ascites and edema secondary to liver disease. In addition patient is to follow-up with Dr. Erasmo LANE-She has appointment next week 07/10/20 as per Gi. 3.: Acute on chronic anemia macrocytic: B12 and folate recently was normal iron studies noted ,fecal occult blood neg Probably she has anemia of chronic disease denies any history of saadia bleeding or melena Currently patient is H&H is stable between 9 and 10 range, platelets in 90 range. Patient is to monitor CBC outpatient with PCP and consider outpatient follow-up with Dr. Jacob. Above management discussed with the patient in detail length she understand and in agreement with the above plan, time spent 50 minutes and 50% time spent on counseling. Significant findings: As above. Procedures performed: None. Treatment and response: As above. Complications: None. Time Spent with Patient Time attestation: Total time spent providing and/or coordinating discharge services: Discharge coordination time: Greater than 30 minutes Physical Exam Vital Signs: Vital Signs: Last Vital Signs Temp 98.7 F 07/03/20 11:53 Pulse 86 07/03/20 11:53 Resp 18 07/03/20 11:53 BP 156/66 H 07/03/20 11:53 Pulse Ox 94 07/03/20 11:53 Body Mass Index 38.5 Physical exam Constitutional: Not in acute distress HEENT: Eyes: No discharge or erythema Neck supple Skin; Mild icteric, no discharge Cvs: rrr, [id number] , no murmur res: clear to auscultation ,no rhonchii or wheezing abd: no rebound or guarding ,nt, bs present. ext pulses present , no cyanosis neuro: axo3 , nonfocal. DS: Data Data Completed and Pending Completed studies during hospitalization [Text1]: Pending at discharge 07/01/20 09:11 Surgical [PTH] Routine Labs on day of discharge: Laboratory Tests 06/27/20 06/27/20 06/27/20 14:34 14:35 14:35 WBC 6.7 RBC 2.86 L Hgb 10.2 L Hct 31.4 L MCV 109.8 H MCH 35.7 H MCHC 32.5 RDW 15.3 Plt Count 121 L MPV 10.1 Immature Gran % (Auto) 0.4 Neut % (Auto) 63.5 Lymph % (Auto) 20.5 Barry % (Auto) 12.8 H Eos % (Auto) 1.6 Baso % (Auto) 1.2 Lymph # (Auto) 1.4 Barry # (Auto) 0.9 Eos # (Auto) 0.1 Baso # (Auto) 0.1 Abs Immat Gran (auto) 0.03 Absolute Neuts (auto) 4.3 Absolute Nucleated RBC 0.000 Nucleated RBC % (auto) 0.0 PT INR Sodium 140 Potassium 4.0 Chloride 105 Carbon Dioxide 27 Anion Gap 12 BUN 16 Creatinine 0.84 Estim Creat Clear Calc TNP Estimated GFR > 60 Random Glucose TNP Fasting Glucose 96 Lactic Acid Lactic Acid Fup @ 2Hr Calcium 7.9 L Iron TIBC % Saturation Unsat Iron Binding Ferritin Total Bilirubin 5.9 H Direct Bilirubin AST 74 H ALT 33 H Alkaline Phosphatase 130 H D Ammonia 70 H B-Natriuretic Peptide Total Protein 6.7 Albumin 2.2 L Alpha Fetoprotein CA 19-9 Antigen Vitamin B12 25-OH Vitamin D Total Folate TSH 1.33 Urine Color Urine Appearance Urine pH Ur Specific [place] Urine Protein Urine Glucose (UA) Urine Ketones Urine Blood Urine Nitrite Ur Leukocyte Esterase Urine RBC Urine WBC Ur Squamous Epith Cells Amorphous Sediment Urine Bacteria Stool Occult Blood Zinc COVID-19 (JAS) COVID-19 ReviewPro 06/27/20 06/27/20 06/27/20 14:35 14:35 14:35 WBC RBC Hgb Hct MCV MCH MCHC RDW Plt Count MPV Immature Gran % (Auto) Neut % (Auto) Lymph % (Auto) Barry % (Auto) Eos % (Auto) Baso % (Auto) Lymph # (Auto) Barry # (Auto) Eos # (Auto) Baso # (Auto) Abs Immat Gran (auto) Absolute Neuts (auto) Absolute Nucleated RBC Nucleated RBC % (auto) PT INR Sodium Potassium Chloride Carbon Dioxide Anion Gap BUN Creatinine Estim Creat Clear Calc Estimated GFR Random Glucose Fasting Glucose Lactic Acid Lactic Acid Fup @ 2Hr Calcium Iron TIBC % Saturation Unsat Iron Binding Ferritin Total Bilirubin Direct Bilirubin AST ALT Alkaline Phosphatase Ammonia B-Natriuretic Peptide Total Protein Albumin Alpha Fetoprotein 4.4 CA 19-9 Antigen Vitamin B12 > 2000 H 25-OH Vitamin D Total 12.9 Folate 14.3 TSH Urine Color Urine Appearance Urine pH Ur Specific [place] Urine Protein Urine Glucose (UA) Urine Ketones Urine Blood Urine Nitrite Ur Leukocyte Esterase Urine RBC Urine WBC Ur Squamous Epith Cells Amorphous Sediment Urine Bacteria Stool Occult Blood Zinc COVID-19 (JAS) COVID-19 ReviewPro 06/27/20 06/27/20 06/27/20 14:35 17:35 17:35 WBC RBC Hgb Hct MCV MCH MCHC RDW Plt Count MPV Immature Gran % (Auto) Neut % (Auto) Lymph % (Auto) Barry % (Auto) Eos % (Auto) Baso % (Auto) Lymph # (Auto) Barry # (Auto) Eos # (Auto) Baso # (Auto) Abs Immat Gran (auto) Absolute Neuts (auto) Absolute Nucleated RBC Nucleated RBC % (auto) PT 27.2 H INR 2.3 H Sodium Potassium Chloride Carbon Dioxide Anion Gap BUN Creatinine Estim Creat Clear Calc Estimated GFR Random Glucose Fasting Glucose Lactic Acid 2.1 H* Lactic Acid Fup @ 2Hr Calcium Iron TIBC % Saturation Unsat Iron Binding Ferritin Total Bilirubin Direct Bilirubin AST ALT Alkaline Phosphatase Ammonia B-Natriuretic Peptide Total Protein Albumin Alpha Fetoprotein CA 19-9 Antigen Vitamin B12 25-OH Vitamin D Total Folate TSH Urine Color Urine Appearance Urine pH Ur Specific [place] Urine Protein Urine Glucose (UA) Urine Ketones Urine Blood Urine Nitrite Ur Leukocyte Esterase Urine RBC Urine WBC Ur Squamous Epith Cells Amorphous Sediment Urine Bacteria Stool Occult Blood Zinc 27 L COVID-19 (JAS) COVID-19 Clin Com 06/27/20 06/27/20 06/27/20 17:35 17:35 20:24 WBC RBC Hgb Hct MCV MCH MCHC RDW Plt Count MPV Immature Gran % (Auto) Neut % (Auto) Lymph % (Auto) Barry % (Auto) Eos % (Auto) Baso % (Auto) Lymph # (Auto) Barry # (Auto) Eos # (Auto) Baso # (Auto) Abs Immat Gran (auto) Absolute Neuts (auto) Absolute Nucleated RBC Nucleated RBC % (auto) PT INR Sodium Potassium Chloride Carbon Dioxide Anion Gap BUN Creatinine Estim Creat Clear Calc Estimated GFR Random Glucose Fasting Glucose Lactic Acid Lactic Acid Fup @ 2Hr 1.3 Calcium Iron TIBC % Saturation Unsat Iron Binding Ferritin Total Bilirubin Direct Bilirubin AST ALT Alkaline Phosphatase Ammonia B-Natriuretic Peptide 135 H Total Protein Albumin Alpha Fetoprotein CA 19-9 Antigen Vitamin B12 25-OH Vitamin D Total Folate TSH Urine Color Urine Appearance Urine pH Ur Specific [place] Urine Protein Urine Glucose (UA) Urine Ketones Urine Blood Urine Nitrite Ur Leukocyte Esterase Urine RBC Urine WBC Ur Squamous Epith Cells Amorphous Sediment Urine Bacteria Stool Occult Blood Zinc COVID-19 (JAS) Negative COVID-19 Clin Com See Note 06/28/20 06/28/20 06/29/20 10:15 10:15 07:30 WBC 6.4 RBC 2.32 L Hgb 8.3 L Hct 25.3 L MCV 109.1 H MCH 35.8 H MCHC 32.8 RDW 15.2 Plt Count 89 L D MPV 10.3 Immature Gran % (Auto) 0.3 Neut % (Auto) 58.7 Lymph % (Auto) 23.6 Barry % (Auto) 12.7 H Eos % (Auto) 3.8 Baso % (Auto) 0.9 Lymph # (Auto) 1.5 Barry # (Auto) 0.8 Eos # (Auto) 0.2 Baso # (Auto) 0.1 Abs Immat Gran (auto) 0.02 Absolute Neuts (auto) 3.8 Absolute Nucleated RBC 0.000 Nucleated RBC % (auto) 0.0 PT INR Sodium Potassium Chloride Carbon Dioxide Anion Gap BUN Creatinine Estim Creat Clear Calc Estimated GFR Random Glucose 105 Fasting Glucose Lactic Acid Lactic Acid Fup @ 2Hr Calcium Iron TIBC % Saturation Unsat Iron Binding Ferritin Total Bilirubin Direct Bilirubin AST ALT Alkaline Phosphatase Ammonia B-Natriuretic Peptide Total Protein 6.7 Albumin Alpha Fetoprotein CA 19-9 Antigen 41 H Vitamin B12 25-OH Vitamin D Total Folate TSH Urine Color Urine Appearance Urine pH Ur Specific [place] Urine Protein Urine Glucose (UA) Urine Ketones Urine Blood Urine Nitrite Ur Leukocyte Esterase Urine RBC Urine WBC Ur Squamous Epith Cells Amorphous Sediment Urine Bacteria Stool Occult Blood Zinc COVID-19 (JAS) COVIDTempus Global19 ReviewPro 06/29/20 06/29/20 06/29/20 07:30 07:30 11:54 WBC RBC Hgb Hct MCV MCH MCHC RDW Plt Count MPV Immature Gran % (Auto) Neut % (Auto) Lymph % (Auto) Barry % (Auto) Eos % (Auto) Baso % (Auto) Lymph # (Auto) Barry # (Auto) Eos # (Auto) Baso # (Auto) Abs Immat Gran (auto) Absolute Neuts (auto) Absolute Nucleated RBC Nucleated RBC % (auto) PT INR Sodium Cancelled 138 Potassium Cancelled 3.7 Chloride Cancelled 104 Carbon Dioxide Cancelled 27 Anion Gap Cancelled 11 L BUN Cancelled 13 Creatinine Cancelled 0.81 Estim Creat Clear Calc Cancelled 81.6 Estimated GFR Cancelled > 60 Random Glucose Cancelled 100 Fasting Glucose Lactic Acid Lactic Acid Fup @ 2Hr Calcium Cancelled 7.6 L Iron 148 TIBC 190 L % Saturation 78 H Unsat Iron Binding 42 Ferritin 553 H Total Bilirubin 5.3 H Direct Bilirubin 3.1 H AST 60 H ALT 28 Alkaline Phosphatase 110 Ammonia B-Natriuretic Peptide Total Protein 5.8 L Albumin 2.1 L Alpha Fetoprotein CA 19-9 Antigen Vitamin B12 25-OH Vitamin D Total Folate TSH Urine Color YELLOW Urine Appearance CLEAR Urine pH 7.0 Ur Specific [place] 1.015 Urine Protein NEG Urine Glucose (UA) NEG Urine Ketones NEG Urine Blood 2+ H Urine Nitrite NEG Ur Leukocyte Esterase NEG Urine RBC 10-14 H Urine WBC 0 Ur Squamous Epith Cells 1+ Amorphous Sediment 1+ Urine Bacteria 1+ Stool Occult Blood Zinc COVID-19 (JAS) COVID-19 ReviewPro 06/29/20 06/30/20 06/30/20 11:54 05:58 07:41 WBC RBC Hgb 8.5 L Hct 25.5 L MCV MCH MCHC RDW Plt Count MPV Immature Gran % (Auto) Neut % (Auto) Lymph % (Auto) Barry % (Auto) Eos % (Auto) Baso % (Auto) Lymph # (Auto) Barry # (Auto) Eos # (Auto) Baso # (Auto) Abs Immat Gran (auto) Absolute Neuts (auto) Absolute Nucleated RBC Nucleated RBC % (auto) PT INR Sodium 138 Potassium 3.5 Chloride 104 Carbon Dioxide 26 Anion Gap 12 BUN 11 Creatinine 0.83 Estim Creat Clear Calc 79.6 Estimated GFR > 60 Random Glucose 96 Fasting Glucose Lactic Acid Lactic Acid Fup @ 2Hr Calcium 7.8 L Iron TIBC % Saturation Unsat Iron Binding Ferritin Total Bilirubin 5.1 H Direct Bilirubin 3.0 H AST 60 H ALT 28 Alkaline Phosphatase 112 Ammonia B-Natriuretic Peptide Total Protein 5.6 L Albumin 2.2 L Alpha Fetoprotein CA 19-9 Antigen Vitamin B12 25-OH Vitamin D Total Folate TSH Urine Color Urine Appearance Urine pH Ur Specific [place] Urine Protein Urine Glucose (UA) Urine Ketones Urine Blood Urine Nitrite Ur Leukocyte Esterase Urine RBC Urine WBC Ur Squamous Epith Cells Amorphous Sediment Urine Bacteria Stool Occult Blood NEG Zinc COVID-19 (JAS) COVID-19 Clin Com 07/01/20 07/01/20 07/01/20 06:15 07:01 12:15 WBC 5.1 RBC 2.56 L Hgb 9.9 L 9.1 L Hct 30.1 L 27.9 L MCV 109.0 H MCH 35.5 H MCHC 32.6 RDW 15.2 Plt Count 80 L MPV 10.1 Immature Gran % (Auto) 0.6 H Neut % (Auto) 75.1 H Lymph % (Auto) 14.5 L Barry % (Auto) 7.2 Eos % (Auto) 1.2 Baso % (Auto) 1.4 Lymph # (Auto) 0.7 L Barry # (Auto) 0.4 Eos # (Auto) 0.1 Baso # (Auto) 0.1 Abs Immat Gran (auto) 0.03 Absolute Neuts (auto) 3.9 Absolute Nucleated RBC 0.000 Nucleated RBC % (auto) 0.0 PT INR Sodium Cancelled Potassium Cancelled Chloride Cancelled Carbon Dioxide Cancelled Anion Gap Cancelled BUN Cancelled Creatinine Cancelled Estim Creat Clear Calc Cancelled Estimated GFR Cancelled Random Glucose Cancelled Fasting Glucose Lactic Acid Lactic Acid Fup @ 2Hr Calcium Cancelled Iron TIBC % Saturation Unsat Iron Binding Ferritin Total Bilirubin Direct Bilirubin AST ALT Alkaline Phosphatase Ammonia B-Natriuretic Peptide Total Protein Albumin Alpha Fetoprotein CA 19-9 Antigen Vitamin B12 25-OH Vitamin D Total Folate TSH Urine Color Urine Appearance Urine pH Ur Specific [place] Urine Protein Urine Glucose (UA) Urine Ketones Urine Blood Urine Nitrite Ur Leukocyte Esterase Urine RBC Urine WBC Ur Squamous Epith Cells Amorphous Sediment Urine Bacteria Stool Occult Blood Zinc COVID-19 (JAS) COVID-19 ReviewPro 07/01/20 07/01/20 07/01/20 12:15 12:15 12:15 WBC RBC Hgb Hct MCV MCH MCHC RDW Plt Count MPV Immature Gran % (Auto) Neut % (Auto) Lymph % (Auto) Barry % (Auto) Eos % (Auto) Baso % (Auto) Lymph # (Auto) Barry # (Auto) Eos # (Auto) Baso # (Auto) Abs Immat Gran (auto) Absolute Neuts (auto) Absolute Nucleated RBC Nucleated RBC % (auto) PT Cancelled 32.7 H D INR Cancelled 2.7 H Sodium 136 Potassium 3.7 Chloride 101 Carbon Dioxide 27 Anion Gap 12 BUN 12 Creatinine 0.86 Estim Creat Clear Calc 76.8 Estimated GFR > 60 Random Glucose 96 Fasting Glucose Lactic Acid Lactic Acid Fup @ 2Hr Calcium 7.9 L Iron TIBC % Saturation Unsat Iron Binding Ferritin Total Bilirubin Direct Bilirubin AST ALT Alkaline Phosphatase Ammonia B-Natriuretic Peptide Total Protein Albumin Alpha Fetoprotein CA 19-9 Antigen Vitamin B12 25-OH Vitamin D Total Folate TSH Urine Color Urine Appearance Urine pH Ur Specific [place] Urine Protein Urine Glucose (UA) Urine Ketones Urine Blood Urine Nitrite Ur Leukocyte Esterase Urine RBC Urine WBC Ur Squamous Epith Cells Amorphous Sediment Urine Bacteria Stool Occult Blood Zinc COVID-19 (JAS) COVID-19 ReviewPro 07/02/20 07/02/20 07/03/20 06:06 06:06 08:45 WBC RBC Hgb 9.4 L Hct 28.9 L MCV MCH MCHC RDW Plt Count MPV Immature Gran % (Auto) Neut % (Auto) Lymph % (Auto) Barry % (Auto) Eos % (Auto) Baso % (Auto) Lymph # (Auto) Barry # (Auto) Eos # (Auto) Baso # (Auto) Abs Immat Gran (auto) Absolute Neuts (auto) Absolute Nucleated RBC Nucleated RBC % (auto) PT TNP INR TNP Sodium 137 Potassium 3.5 Chloride 102 Carbon Dioxide 30 H Anion Gap 9 L BUN 14 Creatinine 0.89 Estim Creat Clear Calc 74.3 Estimated GFR > 60 Random Glucose 84 Fasting Glucose Lactic Acid Lactic Acid Fup @ 2Hr Calcium 8.1 L Iron TIBC % Saturation Unsat Iron Binding Ferritin Total Bilirubin Direct Bilirubin AST ALT Alkaline Phosphatase Ammonia B-Natriuretic Peptide Total Protein Albumin Alpha Fetoprotein CA 19-9 Antigen Vitamin B12 25-OH Vitamin D Total Folate TSH Urine Color Urine Appearance Urine pH Ur Specific [place] Urine Protein Urine Glucose (UA) Urine Ketones Urine Blood Urine Nitrite Ur Leukocyte Esterase Urine RBC Urine WBC Ur Squamous Epith Cells Amorphous Sediment Urine Bacteria Stool Occult Blood Zinc COVID-19 (JAS) COVID-schoox 07/03/20 08:45 WBC RBC Hgb Hct MCV MCH MCHC RDW Plt Count MPV Immature Gran % (Auto) Neut % (Auto) Lymph % (Auto) Barry % (Auto) Eos % (Auto) Baso % (Auto) Lymph # (Auto) Barry # (Auto) Eos # (Auto) Baso # (Auto) Abs Immat Gran (auto) Absolute Neuts (auto) Absolute Nucleated RBC Nucleated RBC % (auto) PT 29.5 H INR 2.5 H Sodium Potassium Chloride Carbon Dioxide Anion Gap BUN Creatinine Estim Creat Clear Calc Estimated GFR Random Glucose Fasting Glucose Lactic Acid Lactic Acid Fup @ 2Hr Calcium Iron TIBC % Saturation Unsat Iron Binding Ferritin Total Bilirubin Direct Bilirubin AST ALT Alkaline Phosphatase Ammonia B-Natriuretic Peptide Total Protein Albumin Alpha Fetoprotein CA 19-9 Antigen Vitamin B12 25-OH Vitamin D Total Folate TSH Urine Color Urine Appearance Urine pH Ur Specific [place] Urine Protein Urine Glucose (UA) Urine Ketones Urine Blood Urine Nitrite Ur Leukocyte Esterase Urine RBC Urine WBC Ur Squamous Epith Cells Amorphous Sediment Urine Bacteria Stool Occult Blood Zinc COVID-19 (JAS) COVID-19 ReviewPro Discharge Plan Discharge Patient Disposition: Home, Self-Care Referrals: Alex Lau, [employer]FFER- [Primary Care Provider] - Ozzie Zimmerman MD [Physician] - (follow up in 1 week.) Alicia Jacob MD [Physician] - (follow up in 1 week.) Discharge Medications: New omeprazole 20 mg capsule,delayed release(DR/EC) 20 mg PO BID Qty: 60 RF: 0 Continued furosemide 20 mg tablet 1 tab PO BID RF: 0 multivitamin Tablet 1 tab PO DAILY RF: 0 cholecalciferol (vitamin D3) 25 mcg (1,000 unit) tablet 25 mcg PO DAILY RF: 0 mecobalamin (vitamin B12) 1,000 mcg tablet,chewable 1,000 mcg PO DAILY RF: 0 spironolactone 50 mg tablet 50 mg PO QAM 30 Days Qty: 30 RF: 3 No Action lactulose 20 gram/30 mL solution 20 g PO TID 60 Days Qty: 900 RF: 2 zinc 50 mg tablet 50 mg PO DAILY 30 Days Qty: 30 RF: 3 Discharge Orders: Discharge Order (Routine); Ordered 07/03/20 Ordered By: Dany Fernandez Diet: advance to usual diet, low fat, low cholesterol and low salt diet Activity on Discharge: As tolerated Stand Alone Forms: Patient Portal Discharge page Visit Report Forms: Patient Portal Discharge page Care Plan Goals: Patient came to hospital because of ascites/edema and somewhat short of breath subsequently was started on IV diuretics: Shortness of breath seems improved as well as tried for paracentesis but does not have enough fluid . Seen by GI: Dr. Zimmerman: Patient was diuresed well and symptomatic seems better. Patient will going home with her Lasix and spironolactone in addition lactulose was added. Further management out patiently with Dr. Zimmerman and PCP. Monitor INR also because of the liver disease. Monitor CBC-because of anemia and thrombocytopenia probably related to liver disease, follow-up with Dr. Jacob outpatient. Monitor BMP outpatient with PCP and further management accordingly. Health Concerns: As above. Plan of Treatment: As above. Discharge Date/Time: 07/03/20 14:34
[2020-07-03] MEDS: Docusate Sodium 100 MG CAPSULE PO (14:05)
[2020-07-03] MEDS: Lactulose 20 GM/30 ML SOLUTION PO (14:05)
== END 2020-07-03 14:34 | disposition home or self-care (01) | DRG 432 ==
LOC: HO.ED 14:58 → HO.EDOVER 06-28 05:11 → HO.S3 06-28 19:59
PROVIDERS: Internal Medicine Gastroenterology; Absent Provider Nurse Practitioner Family; Admitting Provider Internal Medicine; Emergency Provider Emergency Medicine; PCP Nurse Practitioner Family; Visit Provider Internal Medicine
PROC: 0DB78ZX Excision of Stomach, Pylorus, Via Natural or Artificial Opening Endoscopic, Diagnostic (ICD-10-PCS; principal; 2020-07-01 08:30)
DX: K74.60 Unspecified cirrhosis of liver (principal); I81 Portal vein thrombosis; R18.8 Other ascites; K76.6 Portal hypertension; K75.81 Nonalcoholic steatohepatitis (NASH); K31.89 Other diseases of stomach and duodenum; Z85.3 Personal history of malignant neoplasm of breast; K75.4 Autoimmune hepatitis; Z85.038 Personal history of other malignant neoplasm of large intestine; K57.30 Diverticulosis of large intestine without perforation or abscess without bleeding; D63.8 Anemia in other chronic diseases classified elsewhere; I50.811 Acute right heart failure; K59.09 Other constipation; Z20.822 Contact with and (suspected) exposure to COVID-19; Z88.2 Allergy status to sulfonamides; Z79.899 Other long term (current) drug therapy
CPT/HCPCS: 36415; 71045; 74177; 76700; 76705; 80048; 80053; 80076; 81001; 82105; 82140; 82272; 82306; 82607; 82728; 82746; 82947; 83540; 83605; 83880; 84155; 84443; 84630; 85014; 85018; 85025; 85610; 86301; 87040; 87635; 88305; 88342; 93005; 93306; 99212; 99284; J1650; J1940; J3430; P9047; Q9967

== ENCOUNTER → 2020-07-10 10:33 | Outpatient (BNVA) | payer MEDICARE, OTHER, SELFPAY | PROVIDERS: PCP Nurse Practitioner Family; Visit Provider Internal Medicine Gastroenterology | DX: Z13.89 Encounter for screening for other disorder (principal) | CPT/HCPCS: Q3014 ==

== ENCOUNTER 2020-08-11 13:47 | Outpatient (REF) | payer MEDICARE, OTHER, SELFPAY ==
--- NOTE | ~2020-08-11 | MM_ITS ---
EXAMINATION: MM SCREENING DIGITAL BREAST TOMOSYNTHESIS, LEFT CLINICAL INFORMATION: Prior right mastectomy 2013. Due for yearly. COMPARISON: Mammography: 03/01/2019, 01/20/2016 TECHNIQUE: Digital breast tomosynthesis is performed in both the craniocaudal and mediolateral oblique views along with computer-aided detection (CAD). Synthesized 2D images are generated from the tomosynthesis. Additional views are obtained: Left CC, left exaggerated CC. FINDINGS: There are scattered areas of fibroglandular density (ACR BI-RADS breast composition Category b). There are no significant masses, abnormal calcifications, or other abnormalities. The skin contours are smooth. No significant changes. MM/MM tomosynthesis screening LT IMPRESSION: No mammographic evidence of malignancy. ASSESSMENT: BI-RADS 1: Negative RECOMMENDATION: Routine annual mammography screening. This patient's information was entered into a reminder system with a target due date for their next mammogram.
== END 2020-08-11 13:48 | disposition home or self-care (01) ==
LOC: HO.MAMMO 13:47
PROVIDERS: Visit Provider Nurse Practitioner Family
DX: Z12.31 Encounter for screening mammogram for malignant neoplasm of breast (principal)
CPT/HCPCS: 77063; 77067

== ENCOUNTER 2020-08-12 08:01 | Outpatient (REF) | payer MEDICARE, OTHER, SELFPAY ==
[2020-08-12 11:28] LABS: Prothrombin Time 24.4 SEC (10.8-13.0)
[2020-08-12 12:10] LABS: Alanine Aminotransferase 30 U/L (0-31); Albumin Level 2.2 g/dL (3.5-5.0); Alkaline Phosphatase 117 U/L (39-117); Anion Gap 10 (12-20); Aspartate Amino Transferase 62 U/L (5-31); Bilirubin Direct 3.2 mg/dL (0.0-0.5); Bilirubin Total 7.3 mg/dL (0.0-1.0); Blood Urea Nitrogen 18 mg/dL (9-16); Calcium 7.9 mg/dL (8.4-10.2); Carbon Dioxide 26 mmol/L (22-29); Chloride 105 mmol/L (96-108); Estimated Glomerular Filt Rate 60; Glucose Random 83 mg/dL (60-115); Potassium 3.8 mmol/L (3.3-5.1); Sodium 137 mmol/L (135-145); Total Protein 6.6 g/dL (6.5-8.0)
== END 2020-08-12 08:02 | disposition home or self-care (01) ==
LOC: HO.HMGCLR 08:01
PROVIDERS: PCP Nurse Practitioner Family; Visit Provider Internal Medicine Gastroenterology
DX: R94.5 Abnormal results of liver function studies (principal); K74.60 Unspecified cirrhosis of liver
CPT/HCPCS: 36415; 80048; 80076; 85610

== ENCOUNTER 2020-08-18 08:48 | Outpatient (REF) | payer MEDICARE, OTHER, SELFPAY ==
--- NOTE | ~2020-08-18 | US_ITS ---
EXAMINATION: ULTRASOUND-GUIDED PARACENTESIS CLINICAL INFORMATION: Ascites COMPARISON: Previous exam 09/22/2020 TECHNIQUE: Procedure and risks and benefits including bleeding, infection and low blood pressure were discussed with the patient and informed consent was obtained. The right lower quadrant was prepped and draped in usual sterile fashion. The skin and soft tissues were anesthetized with 1% lidocaine plain. Using ultrasound guidance and a 5 [place] rapid centesis catheter, access to the ascitic fluid was obtained. 3.6 Liters of cloudy serosanguineous question chylous-appearing fluid was removed. Diagnostic specimen was sent. FINDINGS: There is a moderate amount of ascites. US/US paracentesis abd w/image IMPRESSION: Ultrasound-guided paracentesis.
[2020-08-20 18:11] LABS: HPV mRNA E6/E7 rflx Not Detected (Not Detected)
== END 2020-08-18 08:49 | disposition home or self-care (01) ==
LOC: HO.LAB 08:48
PROVIDERS: Visit Provider Advanced Practice Midwife
DX: Z01.419 Encounter for gynecological examination (general) (routine) without abnormal findings (principal); Z78.0 Asymptomatic menopausal state
CPT/HCPCS: 36415; 87624; 88142

== ENCOUNTER 2020-09-16 13:06 | Outpatient (REF) | payer MEDICARE, OTHER, SELFPAY ==
[2020-09-16 14:43] LABS: Prothrombin Time 23.8 SEC (10.8-13.0)
[2020-09-16 14:57] LABS: Alanine Aminotransferase 25 U/L (0-31); Alkaline Phosphatase 125 U/L (39-117); Anion Gap 10 (12-20); Aspartate Amino Transferase 50 U/L (5-31); Bilirubin Direct 3.4 mg/dL (0.0-0.5); Bilirubin Total 7.4 mg/dL (0.0-1.0); Blood Urea Nitrogen 27 mg/dL (9-16); Calcium 8.2 mg/dL (8.4-10.2); Carbon Dioxide 25 mmol/L (22-29); Chloride 105 mmol/L (96-108); Estimated Glomerular Filt Rate 51; Glucose Random 148 mg/dL (60-115); Potassium 4.5 mmol/L (3.3-5.1); Sodium 135 mmol/L (135-145); Total Protein 6.6 g/dL (6.5-8.0)
== END 2020-09-16 13:07 | disposition home or self-care (01) ==
LOC: HO.HMGCLR 13:06
PROVIDERS: PCP Nurse Practitioner Family; Visit Provider Internal Medicine Gastroenterology
DX: R94.5 Abnormal results of liver function studies (principal); K74.60 Unspecified cirrhosis of liver
CPT/HCPCS: 36415; 80048; 80076; 85610

== ENCOUNTER 2020-09-22 08:52 | Inpatient (IN) | payer MEDICARE, OTHER, SELFPAY ==
[2020-09-22] VITALS (8 sets, daily range): BP systolic 106–132; BP diastolic 48–68; PULSE 87–98; RESP 15–22; TEMP 36.7–36.9; O2SAT 96–99; BMI 34.8
--- NOTE | ~2020-09-22 | US_ITS ---
EXAMINATION: ULTRASOUND GUIDED PARACENTESIS. CLINICAL INFORMATION: Cirrhosis. Abdominal pain. Large ascites. COMPARISON: Ultrasound abdomen limited 06/28/2020 TECHNIQUE: Following explaining ultrasound guided paracentesis procedure, benefits and risk a written consent was obtained. Patient was placed supine on fluoroscopy table and preliminary imaging was obtained through the abdomen. An optimal site was selected along the right upper mid quadrant laterally and site marked. The marked site was cleaned and draped in usual sterile manner. 1% lidocaine was injected at puncture site. Through a small skin incision a 5 Amharic Viewpost catheter was advanced into the peritoneal space. After observing fluid return, stylet was withdrawn and approximately 50 mL of fluid was collected in the fifth syringe and sent to lab as requested. The catheter was then connected to vacuum bottle via connecting cannula. After obtaining all fluid and observing no more fluid return, catheter was withdrawn and complete hemostasis achieved at puncture site. Sterile dressing applied postprocedure. Patient tolerated procedure extremely well patient was monitored during the exam by a nurse. No sedation was administered. FINDINGS: On preliminary ultrasound imaging there is large amount of fluid seen in the abdomen. Approximately 3.3 L of cloudy dark brownish fluid was drained. Fluid was sent to lab as requested by referring physician. US/US paracentesis abd w/image IMPRESSION: Successful ultrasound-guided paracentesis performed without immediate complications.
--- NOTE | ~2020-09-22 | US_ITS ---
EXAMINATION: US VENOUS ULTRASOUND WITH DOPPLER LOWER EXTREMITY, BILATERAL CLINICAL INFORMATION: Pain. Swelling. Lower extremity edema. COMPARISON: Portions of a previous study 02/06/19 TECHNIQUE: Ultrasound of the deep veins is performed from the hip to the calf with compression sonography and color and pulse Doppler assessment. Spectral analysis with color-flow imaging is performed. FINDINGS: RIGHT: There is normal venous compression and respiratory variation and augmented flow. The visualized common femoral vein, superficial femoral vein, profunda femoral vein, popliteal vein, and the trifurcation region shows no evidence of deep venous thrombosis. There is no significant popliteal fossa cyst. Habitus limits detail. LEFT: There is normal venous compression and respiratory variation and augmented flow. The visualized common femoral vein, superficial femoral vein, profunda femoral vein, popliteal vein, and the trifurcation region shows no evidence of deep venous thrombosis. There is no significant popliteal fossa cyst. Habitus limits detail If the patient's symptoms persist, followup ultrasound in 5 days 7 days might be of value to exclude proximal propagation from a non-visualized calf vein. US/US venous duplex LE BI IMPRESSION: No DVT demonstrated in the bilateral lower extremity.
--- NOTE | ~2020-09-22 | XR_ITS ---
EXAMINATION: XR CHEST CLINICAL INFORMATION: Dyspnea COMPARISON: June 27, 2020 TECHNIQUE: AP portable view of the chest was obtained. FINDINGS: Since previous study patient has developed a right pleural effusion with right base disease. No pneumothorax identified. Heart normal size. No definite airspace edema is appreciated. XR/XR chest 1V IMPRESSION: Development of right pleural effusion since previous study.
--- NOTE | 2020-09-22 08:54 | ED.SOB ---
HPI - SOB/Dyspnea General Chief Complaint: Abdominal Pain Stated Complaint: FLUID RETENTION,DIFF BREATHING Time Seen by Provider: 09/22/20 08:58 Source: patient and EMS Mode of arrival: EMS Limitations: no limitations History of Present Illness HPI Narrative: 70 yo female with advanced cirrhosis on transplant list at [facility] comes in with c/o worsening dyspnea, LE edema, tight abdomen with pain but no fevers, n/v/d, GIB symptoms states she takes her medications notes she is on spironolactone and lasix once a day MD elicited complaint: shortness of breath Pertinent past history: other (cirrhosis with anasarca) Onset (ago): week(s) Timing: constant and progressively worsening Severity: similar to previous episodes Exacerbating factors: lying flat and exertion Relieving factors: nothing Known history of: other (cirrhosis) Associated symptoms: lower extremity pain Treatment prior to arrival: none Related Data Home Medications Medication Instructions Recorded Confirmed cholecalciferol (vitamin D3) 25 25 mcg PO DAILY 06/26/20 09/22/20 mcg (1,000 unit) tablet mecobalamin (vitamin B12) 1,000 1,000 mcg PO DAILY 06/26/20 09/22/20 mcg chewable tablet multivitamin 1 tab PO DAILY 06/26/20 09/22/20 furosemide 20 mg PO DAILY 06/28/20 09/22/20 rifaximin [Xifaxan] 550 mg PO BID 09/22/20 09/22/20 spironolactone 100 mg PO DAILY 09/22/20 09/22/20 Previous Rx's Medication Instructions Recorded lactulose 20 gram/30 mL oral 20 g PO TID 60 Days #900 ml 07/08/20 solution Allergies Allergy/AdvReac Type Severity Reaction Status Date / Time Sulfa (Sulfonamide Allergy Intermediate Itching Verified 08/18/20 09:24 Antibiotics) [SULFA (SULFONAMIDE ANTIBIOTICS)] Omeprazole Allergy Unknown Coughing Uncoded 07/10/20 10:15 steroids Allergy Unknown hallucinations, Uncoded 07/10/20 10:15 mouth sores STEROIDS AdvReac Severe HALLUCINATI Uncoded 07/10/20 10:15 ONS/NAUSEA/ DIZZINESS Certain chemo medication AdvReac Unknown Hospitalize Uncoded 07/10/20 10:15 d Review of Systems Review of Systems: Constitutional : No Fever, No Chills ENT/Mouth : No sore throat, No Rhinorrhea, No Swallowing Difficulty Eyes: No Eye Pain, No Swelling, No Redness Cardiovascular : No Chest Pain, positive SOB, pos Orthopnea, positive Edema Respiratory : No Cough, No Sputum, No Wheezing, positive dyspnea Gastrointestinal : No Nausea, No Vomiting, No Diarrhea, pos abdominal Pain, No Hematochezia, No Melena Genitourinary : No Dysuria, No Urinary Frequency, No Hematuria Musculoskeletal : No joint pain, No Myalgias Skin : No Skin Lesions, No rash Neuro : No Weakness, No Numbness, No Dizziness, No Headache Psych : No Anxiety/Panic, No Depression Heme/Lymph: No Bruising, No Lymphadenopathy Endocrine : No Polyuria, No Polydipsia All other systems reviewed and are negative PMFSH Past Medical History Attestation statement: The following information was validated with the patient. Medical History Cirrhosis of liver Colon cancer Surgical History History of esophagogastroduodenoscopy (EGD) Hx of colonoscopy Hx of right mastectomy Family History Family History Father Hx of diabetes mellitus Mother History of renal pelvis cancer Brother Hx of diabetes mellitus Sister No problems noted. Son No problems noted. Daughter No problems noted. Social History Social History Household Members: Spouse Housing: House Alcohol intake: never Smoking Status: Never smoker Second Hand Smoke Exposure: No Use of substances other than those prescribed or required for medical reasons: No Advance Directives: Yes Advance Directives Information Provided: Yes Advance Directives on File: No service: No Current occupational status: retired Physical Exam Vital Signs: Vital Signs: Last Vital Signs Temp 98.0 F 09/22/20 09:12 Pulse 98 09/22/20 09:12 Resp 18 09/22/20 09:12 BP 125/56 L 09/22/20 09:12 Pulse Ox 98 09/22/20 09:12 Body Mass Index 34.8 Appearance: Alert. Oriented X3. No acute distress. Eyes: Pupils equal, round and reactive to light. ENT: Pharynx normal. Neck: Normal inspection. Neck supple. CVS: Normal heart rate and rhythm. Pulses normal. Respiratory: No respiratory distress. Breath sounds rales in bases Abdomen: Soft and distended, mild diffuse ttp no rebound or guarding Skin: Skin warm and dry. Normal skin color. Normal skin turgor. Extremities: pos pitting 2+ lower extremity edema. No calf ttp Neuro: Oriented X 3. No motor deficit. No sensory deficit. Course Course Course Narrative: given abdominal pain and cloudy appearance of 3.3 L of fluid taken off will start on ceftriaxone for possible SBP infection 1210pm US negative for DVT - patient admits to not being compliant with her lactulose she is not sure what she is taking, admits not having BMs most days MDM - SOB/Dyspnea MDM Narrative Medical decision making narrative: 70 yo female with cirrhosis resulting in anasarca here with LE swelling/pain, dyspnea, abdominal pain - has fluid retention notes she takes her diuretics at this time will need labs, paracentesis, DVT studies, CXR - dispo per results and findings, but likely admission for diuresis, she was discharged in June on lasix BID but notes she is only taking it daily Lab Data Result diagrams: 09/22/20 09:34 09/22/20 09:34 Labs: Lab Results 09/22/20 09/22/20 09/22/20 Range/Units 09:34 09:34 09:34 WBC 6.3 (4.8-10.8) X10*3/uL RBC 2.63 L (4.20-5.50) X10*6/uL Hgb 10.0 L (12.0-16.0) g/dl Hct 30.7 L (37-47) % MCV 116.7 H (80-98) fL MCH 38.0 H (27.0-33.0) pg MCHC 32.6 (31.0-35.0) g/dl RDW 15.5 (11.0-16.0) % Plt Count 111 L (160-400) X10*3/uL MPV 9.3 L (9.4-12.3) fL Immature Gran % (Auto) 0.5 H (0.0-0.4) % Neut % (Auto) 67.5 (45-73) % Lymph % (Auto) 15.7 L (20-40) % [place] % (Auto) 13.2 H (2-11) % Eos % (Auto) 2.1 (0-4) % Baso % (Auto) 1.0 (0-2) % Lymph # (Auto) 1.0 L (1.2-4.9) X10*3/uL [place] # (Auto) 0.8 (0.1-1.2) X10*3/uL Eos # (Auto) 0.1 (0.0-0.4) X10*3/uL Baso # (Auto) 0.1 (0.0-0.2) X10*3/uL Abs Immat Gran (auto) 0.03 (0.00-0.03) X10*3/uL Absolute Neuts (auto) 4.3 (2.0-8.3) X10*3/uL Absolute Nucleated RBC 0.000 (0.0-0.012) X10*3/uL Nucleated RBC % (auto) 0.0 (0.0-0.2) /100WBC PT (10.8-13.0) SEC INR (0.9-1.1) APTT (24.1-38.0) SEC Sodium 134 L (135-145) mmol/L Potassium 4.5 (3.3-5.1) mmol/L Chloride 103 (96-108) mmol/L Carbon Dioxide 22 (22-29) mmol/L Anion Gap 14 (12-20) BUN 25 H (9-16) mg/dL Creatinine 1.12 (0.5-1.4) mg/dL Estim Creat Clear Calc 55.9 Estimated GFR 48 Random Glucose 146 H (60-115) mg/dL Lactic Acid (0.5-2.0) mmol/L Calcium 8.6 (8.4-10.2) mg/dL Magnesium (1.6-2.6) mg/dL Total Bilirubin (0.0-1.0) mg/dL Direct Bilirubin (0.0-0.5) mg/dL AST (5-31) U/L ALT (0-31) U/L Alkaline Phosphatase (39-117) U/L Ammonia (13-55) umol/L Troponin I High Sens (<3.5-17.0) ng/L B-Natriuretic Peptide 89 (<100) pg/mL Total Protein (6.5-8.0) g/dL Albumin (3.5-5.0) g/dL Lipase (8-78) U/L COVID-19 (JAS) (Negative) COVID-19 Clin [facility] Blood Type Antibody Screen 09/22/20 09/22/20 09/22/20 Range/Units 09:34 09:34 09:34 WBC (4.8-10.8) X10*3/uL RBC (4.20-5.50) X10*6/uL Hgb (12.0-16.0) g/dl Hct (37-47) % MCV (80-98) fL MCH (27.0-33.0) pg MCHC (31.0-35.0) g/dl RDW (11.0-16.0) % Plt Count (160-400) X10*3/uL MPV (9.4-12.3) fL Immature Gran % (Auto) (0.0-0.4) % Neut % (Auto) (45-73) % Lymph % (Auto) (20-40) % [place] % (Auto) (2-11) % Eos % (Auto) (0-4) % Baso % (Auto) (0-2) % Lymph # (Auto) (1.2-4.9) X10*3/uL [place] # (Auto) (0.1-1.2) X10*3/uL Eos # (Auto) (0.0-0.4) X10*3/uL Baso # (Auto) (0.0-0.2) X10*3/uL Abs Immat Gran (auto) (0.00-0.03) X10*3/uL Absolute Neuts (auto) (2.0-8.3) X10*3/uL Absolute Nucleated RBC (0.0-0.012) X10*3/uL Nucleated RBC % (auto) (0.0-0.2) /100WBC PT 21.5 H (10.8-13.0) SEC INR 1.8 H (0.9-1.1) APTT 34.3 (24.1-38.0) SEC Sodium (135-145) mmol/L Potassium (3.3-5.1) mmol/L Chloride (96-108) mmol/L Carbon Dioxide (22-29) mmol/L Anion Gap (12-20) BUN (9-16) mg/dL Creatinine (0.5-1.4) mg/dL Estim Creat Clear Calc Estimated GFR Random Glucose (60-115) mg/dL Lactic Acid (0.5-2.0) mmol/L Calcium (8.4-10.2) mg/dL Magnesium 2.2 (1.6-2.6) mg/dL Total Bilirubin 6.3 H (0.0-1.0) mg/dL Direct Bilirubin 3.3 H (0.0-0.5) mg/dL AST 49 H (5-31) U/L ALT 23 (0-31) U/L Alkaline Phosphatase 138 H (39-117) U/L Ammonia (13-55) umol/L Troponin I High Sens (<3.5-17.0) ng/L B-Natriuretic Peptide (<100) pg/mL Total Protein 6.7 (6.5-8.0) g/dL Albumin 2.0 L (3.5-5.0) g/dL Lipase 43 (8-78) U/L COVID-19 (JAS) Negative (Negative) COVID-19 Clin Com See Note Blood Type Antibody Screen 09/22/20 09/22/20 09/22/20 Range/Units 09:34 09:34 09:34 WBC (4.8-10.8) X10*3/uL RBC (4.20-5.50) X10*6/uL Hgb (12.0-16.0) g/dl Hct (37-47) % MCV (80-98) fL MCH (27.0-33.0) pg MCHC (31.0-35.0) g/dl RDW (11.0-16.0) % Plt Count (160-400) X10*3/uL MPV (9.4-12.3) fL Immature Gran % (Auto) (0.0-0.4) % Neut % (Auto) (45-73) % Lymph % (Auto) (20-40) % [place] % (Auto) (2-11) % Eos % (Auto) (0-4) % Baso % (Auto) (0-2) % Lymph # (Auto) (1.2-4.9) X10*3/uL [place] # (Auto) (0.1-1.2) X10*3/uL Eos # (Auto) (0.0-0.4) X10*3/uL Baso # (Auto) (0.0-0.2) X10*3/uL Abs Immat Gran (auto) (0.00-0.03) X10*3/uL Absolute Neuts (auto) (2.0-8.3) X10*3/uL Absolute Nucleated RBC (0.0-0.012) X10*3/uL Nucleated RBC % (auto) (0.0-0.2) /100WBC PT (10.8-13.0) SEC INR (0.9-1.1) APTT (24.1-38.0) SEC Sodium (135-145) mmol/L Potassium (3.3-5.1) mmol/L Chloride (96-108) mmol/L Carbon Dioxide (22-29) mmol/L Anion Gap (12-20) BUN (9-16) mg/dL Creatinine (0.5-1.4) mg/dL Estim Creat Clear Calc Estimated GFR Random Glucose (60-115) mg/dL Lactic Acid 1.7 (0.5-2.0) mmol/L Calcium (8.4-10.2) mg/dL Magnesium (1.6-2.6) mg/dL Total Bilirubin (0.0-1.0) mg/dL Direct Bilirubin (0.0-0.5) mg/dL AST (5-31) U/L ALT (0-31) U/L Alkaline Phosphatase (39-117) U/L Ammonia 102 H (13-55) umol/L Troponin I High Sens 6.0 (<3.5-17.0) ng/L B-Natriuretic Peptide (<100) pg/mL Total Protein (6.5-8.0) g/dL Albumin (3.5-5.0) g/dL Lipase (8-78) U/L COVID-19 (JAS) (Negative) COVID-19 Clin Com Blood Type Antibody Screen 09/22/20 Range/Units 10:54 WBC (4.8-10.8) X10*3/uL RBC (4.20-5.50) X10*6/uL Hgb (12.0-16.0) g/dl Hct (37-47) % MCV (80-98) fL MCH (27.0-33.0) pg MCHC (31.0-35.0) g/dl RDW (11.0-16.0) % Plt Count (160-400) X10*3/uL MPV (9.4-12.3) fL Immature Gran % (Auto) (0.0-0.4) % Neut % (Auto) (45-73) % Lymph % (Auto) (20-40) % [place] % (Auto) (2-11) % Eos % (Auto) (0-4) % Baso % (Auto) (0-2) % Lymph # (Auto) (1.2-4.9) X10*3/uL [place] # (Auto) (0.1-1.2) X10*3/uL Eos # (Auto) (0.0-0.4) X10*3/uL Baso # (Auto) (0.0-0.2) X10*3/uL Abs Immat Gran (auto) (0.00-0.03) X10*3/uL Absolute Neuts (auto) (2.0-8.3) X10*3/uL Absolute Nucleated RBC (0.0-0.012) X10*3/uL Nucleated RBC % (auto) (0.0-0.2) /100WBC PT (10.8-13.0) SEC INR (0.9-1.1) APTT (24.1-38.0) SEC Sodium (135-145) mmol/L Potassium (3.3-5.1) mmol/L Chloride (96-108) mmol/L Carbon Dioxide (22-29) mmol/L Anion Gap (12-20) BUN (9-16) mg/dL Creatinine (0.5-1.4) mg/dL Estim Creat Clear Calc Estimated GFR Random Glucose (60-115) mg/dL Lactic Acid (0.5-2.0) mmol/L Calcium (8.4-10.2) mg/dL Magnesium (1.6-2.6) mg/dL Total Bilirubin (0.0-1.0) mg/dL Direct Bilirubin (0.0-0.5) mg/dL AST (5-31) U/L ALT (0-31) U/L Alkaline Phosphatase (39-117) U/L Ammonia (13-55) umol/L Troponin I High Sens (<3.5-17.0) ng/L B-Natriuretic Peptide (<100) pg/mL Total Protein (6.5-8.0) g/dL Albumin (3.5-5.0) g/dL Lipase (8-78) U/L COVID-19 (JAS) (Negative) COVID-19 Clin Com Blood Type B Positive Antibody Screen NEGATIVE ECG Data Attestation: I personally reviewed and interpreted this ECG as follows: ECG interpretation date: 09/22/20 ECG interpretation time: 09:54 Interpretation: Rate: 93 Rhythm: NSR with ectopic PVCs [place]: left Normal P waves. Normal LOS. Normal QRS complex. poor R wave progression ST T wave : nonspecific, no AAMIR qTC: normal prior studies: no acute ischemia The study has been interpreted contemporaneously by me. . Discharge Plan Discharge Clinical Impression: Hepatic encephalopathy, Anasarca Cirrhosis of liver with ascites Qualifiers: Hepatic cirrhosis type: unspecified hepatic cirrhosis Qualified Code(s): K74.60 - Unspecified cirrhosis of liver Abdominal pain Qualifiers: Abdominal location: generalized Qualified Code(s): R10.84 - Generalized abdominal pain Patient Disposition: Admitted As Inpatient
--- NOTE | 2020-09-22 09:06 | ECG_ITS ---
Test Reason : ABD PAIN Blood Pressure : / mmHG Vent. Rate : 093 BPM Atrial Rate : 093 BPM P-R Int : 138 ms QRS Dur : 082 ms QT Int : 342 ms P-R-T Axes : 027 003 010 degrees QTc Int : 425 ms Sinus rhythm with Premature ventricular complexes Low voltage QRS Possible Anterolateral infarct , age undetermined Abnormal ECG When compared with ECG of 30-JUN-2020 13:09, Borderline criteria for Anterolateral infarct are now Present Inverted T waves have replaced nonspecific T wave abnormality in Inferior leads Referred By: Ebonie Angel Electronically Signed By:MINA ROMERO
[2020-09-22 09:45] LABS: MANUAL DIFF FLAG NO
[2020-09-22 09:46] LABS: Basophils Absolute Auto 0.1 X10*3/uL (0.0-0.2); Eosinophils Absolute Auto 0.1 X10*3/uL (0.0-0.4); Eosinophils Percent Auto 2.1 % (0-4); Hematocrit 30.7 % (37-47); Imm Gran Abs Auto 0.03 X10*3/uL (0.00-0.03); Imm Gran Pct Auto 0.5 % (0.0-0.4); Lymphocytes Percent Auto 15.7 % (20-40); Mean Corpuscular HGB Conc 32.6 g/dl (31.0-35.0); Mean Platelet Volume 9.3 fL (9.4-12.3); Monocytes Absolute Auto 0.8 X10*3/uL (0.1-1.2); Monocytes Percent Auto 13.2 % (2-11); Neutrophils Absolute Auto 4.3 X10*3/uL (2.0-8.3); Neutrophils Percent Auto 67.5 % (45-73); Platelet Count 111 X10*3/uL (160-400); Red Blood Count 2.63 X10*6/uL (4.20-5.50); Red Cell Distribution Width 15.5 % (11.0-16.0); White Blood Count 6.3 X10*3/uL (4.8-10.8)
[2020-09-22 09:48] LABS: Mean Corpuscular Volume 116.7 fL (80-98)
[2020-09-22 09:57] LABS: INTERNATIONAL NORM RATIO 1.8 (0.9-1.1); Prothrombin Time 21.5 SEC (10.8-13.0)
[2020-09-22 09:59] LABS: Partial Thromboplastin Time 34.3 SEC (24.1-38.0)
[2020-09-22 10:00] LABS: COVID-19 Test Negative (Negative); IDNOW Serial# 9DD0AD1C
[2020-09-22 10:07] LABS: Lactic Acid 1.7 mmol/L (0.5-2.0)
[2020-09-22 10:11] LABS: Anion Gap 14 (12-20); Blood Urea Nitrogen 25 mg/dL (9-16); Calcium 8.6 mg/dL (8.4-10.2); Carbon Dioxide 22 mmol/L (22-29); Chloride 103 mmol/L (96-108); Creatinine Clr Calc Pharmacy 55.9; Estimated Glomerular Filt Rate 48; Glucose Random 146 mg/dL (60-115); Potassium 4.5 mmol/L (3.3-5.1); Sodium 134 mmol/L (135-145)
[2020-09-22 10:13] LABS: Alanine Aminotransferase 23 U/L (0-31); Alkaline Phosphatase 138 U/L (39-117); Aspartate Amino Transferase 49 U/L (5-31); Bilirubin Direct 3.3 mg/dL (0.0-0.5); Bilirubin Total 6.3 mg/dL (0.0-1.0); Lipase 43 U/L (8-78); Magnesium 2.2 mg/dL (1.6-2.6); Total Protein 6.7 g/dL (6.5-8.0)
[2020-09-22 10:15] LABS: Ammonia 102 umol/L (13-55)
[2020-09-22 10:18] LABS: B Type Natriuretic Peptide 89 pg/mL (<100)
[2020-09-22] MEDS: Albumin Human 25 % 100 ML IV (10:58)
[2020-09-22] MEDS: Lactulose 20 GM/30 ML SOLUTION 30 GM PO (12:54)
[2020-09-22] MEDS: cefTRIAXone sodium 1 GM in 0.9 % Sodium Chloride 50 ML IV (12:54)
[2020-09-22] MEDS: Furosemide 40 MG/4 ML VIAL IVPUSH (13:30)
[2020-09-22 14:43] LABS: pH Peritoneal Fluid 7.53
--- NOTE | 2020-09-22 15:00 | PC.NURSE ---
pt taken to IR for paracentecis following labwork and imaging. drained of 3.5 l, labs sent for culture. pt medicated per emar, returning from IR reportedly sts feeling much better with abdominal pain . ambulated to bathroom w slow steady gait to void. return to stretcher and placed on tele. plan for inpt admission. pt ordered bedrest, but dr montez sts pt may ambulate if she would like and order would be changed.
--- NOTE | 2020-09-22 16:30 | HP_ITS ---
DATE OF SERVICE: 09/22/2020 CHIEF COMPLAINT: Increased abdominal distention, shortness of breath with ambulation. HISTORY OF PRESENT ILLNESS: This is a 70-year-old female patient with past medical history significant for cirrhosis related to fatty liver and autoimmune hepatitis, being followed at [facility] and is on transplant list. As per patient for last 2 to 3 weeks, she noticed worsening abdominal distention and bilateral lower extremity edema. She has been using her Lasix once daily and spironolactone and taking lactulose twice daily, but despite of that, she noticed that the edema was worsening and she is not moving bowels on a regular basis. She denies any associated fever or chills. No nausea, vomiting, or diarrhea. She denies any sick contacts. She never had paracentesis in the past. During her hospitalization in June of 2020, paracentesis was attempted, but there was not enough fluid to be drained. In the emergency room due to significant respiratory distress, the patient underwent bedside paracentesis and 3.3 L of fluid was removed. Studies remains pending. The patient had a negative ultrasound of bilateral lower extremities. In the ER, the patient also treated with 25% albumin, lactulose, 1 g of ceftriaxone for SBP prophylaxis and 1 dose of IV Lasix. At the present time, patient is feeling significantly better with less abdominal discomfort. She has no shortness of breath at rest. PAST MEDICAL HISTORY: The patient has a history of cirrhosis of liver. The patient is status post upper endoscopy and colonoscopy. She is status post right mastectomy due to right breast cancer. She has a history of sigmoid colon cancer. SOCIAL HISTORY: The patient lives at home with her . No history of smoking or alcohol abuse. FAMILY HISTORY: Patient's parents are . Mother has renal cancer. Other siblings have no acute medical issues. ALLERGIES: SHE IS ALLERGIC TO SULFA THAT CAUSES ITCHING. OMEPRAZOLE CAUSES COUGHING. STEROIDS CAUSE HALLUCINATION AND NAUSEA AND DIZZINESS, AND CERTAIN CHEMO MEDICATION ALSO CAUSE ALLERGIC REACTION THAT REQUIRES HOSPITALIZATION. MEDICATIONS: On admission, vitamin D3 1000 units by mouth daily, Lasix once a day, vitamin B12 1000 mcg daily, multivitamin 1 by mouth daily, Rifaximin 550 mg b.i.d., spironolactone 100 mg by mouth daily. 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 CVS: No chest pain or palpitation. GI: No nausea, no vomiting. Abdominal distention and tightness of few weeks' duration. No diarrhea. : No urinary symptoms of urgency or frequency. SKIN: Denies any rashes. The rest of all other systems are reviewed and are negative. PHYSICAL EXAMINATION: GENERAL: The patient is resting comfortably. VITALS: BP 116/50 with a pulse of 90, respiratory rate 15, O2 saturation 96% on room air. HEENT: Pupils equal, round, and reactive to light and accommodation. Icteric sclerae. NECK: Supple. No JVD. LUNGS: Clear to auscultation bilaterally. Diminished breath sounds at right base. ABDOMEN: Soft, nontender. Bowel sounds are audible. No rigidity. No guarding. Mild distention noted. EXTREMITIES: She has bilateral pitting edema. NEUROLOGIC: Nonfocal. No asterixis noted. LABORATORY DATA: Albumin 2. Ammonia level of 102, alkaline phosphatase 138, total bilirubin 6.3, direct bilirubin 3.3, AST of 49. Random blood sugar 146, BUN of 25, sodium 134, normal anion gap. WBC of 6.3, hematocrit 30.7, platelet count 111. Lower extremity Doppler study showed no acute DVT. Chest x-ray showed new right pleural effusion. ASSESSMENT AND PLAN: This is a 70-year-old female patient with multiple medical issues including history of cirrhosis, history of breast cancer, colon cancer, who presented to [facility] with worsening abdominal distention and lower extremity edema. 1. Decompensated cirrhosis due to fatty liver and autoimmune hepatitis with chronically elevated LFTs and bilirubin, being followed at [facility] for liver transplant. The patient underwent paracentesis in the emergency room. 3.3 L of fluid was removed. Since then, patient is feeling better, we will treat the patient with IV Lasix 40 mg daily and continue her Aldactone. The patient's ammonia level is significantly elevated. As per ER physician, she was mildly confused on arrival. At the present time, patient is awake, alert, answering questions appropriately. We will place her on lactulose t.i.d. Monitor ammonia level and LFTs. 2. Ascites with abdominal distention. We will follow fluid studies. The patient will be covered empirically with IV ceftriaxone to cover for spontaneous bacterial peritonitis, but however patient is afebrile with a normal WBC count. 3. Mild hepatic encephalopathy. On arrival, patient was noted to be mildly confused, currently stable. We will continue patient on lactulose and rifaximin, and follow ammonia level at a.m. 4. Deep vein thrombosis prophylaxis. The patient's INR is elevated at 1.8. We will place her on compression stockings. 5. Code status, the patient wishes to be a full code. MD ANABELL Pryor/ODESSA / [id number] MTDD
--- NOTE | 2020-09-22 17:15 | PC.NURSE ---
pt continues to rest in stretcher, appears comfortable. no new complaints. awaiting inpt bed assignment. [facility],.
[2020-09-22 19:23] LABS: Albumin Peritoneal Fluid 0.4
[2020-09-22 19:24] LABS: LDH Peritoneal Fluid 64; Total Protein Peritoneal Fluid 1.3
[2020-09-22 19:25] LABS: Glucose Peritoneal Fluid 124
--- NOTE | 2020-09-22 20:04 | PM.GICN ---
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 PT seen at [facility] today with worsening abdominal distention and lower extremity edema associated with dyspnea. 70 yo female with advanced cirrhosis on transplant list at [facility] comes in with c/o worsening dyspnea, LE edema, tight abdomen with pain but no fevers, n/v/d, GIB symptoms states she takes her medications notes she is on spironolactone and lasix once a day Patient complains of worsening fatigue, abdominal distension with lower extremity edema. She has been taking lactulose twice daily and continues to have constipation. She complains of abdominal cramps if she increases it to 3 or 4 times a day. She has been using her Lasix and spironolactone once daily Pt denies fever, chills, nausea, vomiting, or diarrhea. She never had paracentesis in the past. In the emergency room due to significant respiratory distress, the patient underwent bedside paracentesis and 3.3 L of fluid was removed. A duplex ultrasound of lower extremities was negative for DVT. Pt was given 25% albumin, lactulose, 1 g of ceftriaxone for SBP prophylaxis and 1 dose of IV Lasix in the ER. Patient was diagnosed with autoimmune hepatitis in 2003 and was treated with azathioprine for a few years. She is status post surgery for breast cancer and sigmoid colectomy for sigmoid colon cancer in 2013 CHRONIC ILLNESSES: Fatty liver, Autoimmune hepatitis complicated by cirrhosis, Pyloric ulcer, Hx of breast cancer, Malignant neoplasm of colon, unspecified IMAGING STUDIES: ULTRASOUND-GUIDED PARACENTESIS TODAY: Approximately 3.3 L of cloudy dark brownish fluid was drained. 06/27/[address] SCAN SHOWED: Shrunken, nodular liver suggesting cirrhosis. There are extensive varices with innumerable splenic varices and a likely splenorenal shunt. There are paraesophageal, gastric, and abdominal varices. Although there is a contrast opacified vessel in the willard hepatis which could represent the main portal vein, there are additional varices present. Moreover, the main portal vein is actually smaller in caliber than the left portal vein. The appearance suggests cavernous transformation of the portal vein from chronic portal vein thrombosis; the contrast opacified vessel in the willard hepatis may represent a prominent collateral rather than the main portal vein. There are no contrast-enhanced CT or MRI exams available to confirm the acuity of this. Moderate ascites. Pleural effusions. Anasarca. ENDOSCOPIC STUDIES: 07/01/20 EGD AND COLONOSCOPY SHOWED: Moderate portal gastropathy with a few small old clots in the stomach - likely minor bleeding from PHG. Antral erosions, no gastric varices Colonoscopy Findings: Moderate diverticulosis seen in the sigmoid colon and no polyps were detected. Repeat colonoscopy is advised in 5 years due to history of adenomatous colon polyps. 08/2004 LIVER BIOPSY PERFORMED IN [place] SHOWED: ACTIVE CIRRHOSIS, PROBABLY MICRO NODULAR ASSOCIATED WITH MODERATE MACRO AND MICROVESICULAR STEATOSIS. MILD INTERFACE HEPATITIS - GRADE 2 SLIGHT LOBULAR ACTIVITY - GRADE 1 NO DEFINITE AYDEE BODIES ARE IDENTIFIED NO SIGNIFICANT IRON APPEARS PRESENT NO DUCTOPENIA IS PRESENT NO DYSPLASIA IS NOTED COMMENT: THE ETIOLOGY OF CIRRHOSIS IS UNDETERMINED. POSSIBILITY OF MARTEL OR AUTOIMMUNE HEPATITIS ALTHOUGH UNLIKELY WAS CONSIDERED AN UNDERLYING CAUSE Review of Systems Constitutional: Constitutional: Reports fatigue, Denies fever(s), Denies headache(s) and Denies weight loss Eyes: Eyes: Denies eye discharge and Denies irritation ENT: Reports Normal hearing present, Denies dysphagia, Denies dizziness and Denies headache(s) Cardiovascular: Cardiovascular: Denies chest pain, Reports leg edema, Reports dyspnea and Reports dyspnea on exertion Respiratory: Respiratory: Denies cough, Reports dyspnea and Reports dyspnea on exertion Gastrointestinal: Gastrointestinal: Reports abdominal pain, Reports bloating, Denies change in bowel habits, Denies dysphagia and Denies heartburn Genitourinary: Genitourinary: Denies difficulty voiding and Denies dysuria Musculoskeletal: Musculoskeletal: Denies back pain and Denies arthralgias Integumentary/Breasts: Skin/Breast: Denies pruritus, Denies rash and Reports jaundice Neurologic: Reports Normal hearing present, Denies Abnormal speech present, Denies dizziness, Denies headache(s) and Denies seizure-like activity Psychiatric: Psychiatric: Denies anxiety, Denies depression and Denies panic attacks Endocrine: Endocrine: Denies cold intolerance, Reports fatigue, Denies flushing and Denies heat intolerance PMFSH Past Medical History Medical History Cirrhosis of liver Colon cancer Family History Family History Father Hx of diabetes mellitus Mother History of renal pelvis cancer Brother Hx of diabetes mellitus Sister No problems noted. Son No problems noted. Daughter No problems noted. Surgical History Surgical History History of esophagogastroduodenoscopy (EGD) Hx of colonoscopy Hx of right mastectomy Social History Social History Household Members: Spouse Housing: House Do you presently have visiting nurse or other home services: Yes ([facility]) Alcohol intake: never Second Hand Smoke Exposure: No service: No Current occupational status: retired Meds Allergies Allergy/AdvReac Type Severity Reaction Status Date / Time Sulfa (Sulfonamide Allergy Intermediate Itching Verified 10/22/20 00:30 Antibiotics) [SULFA (SULFONAMIDE ANTIBIOTICS)] omeprazole Allergy Unknown Cough Verified 10/22/20 00:32 steroids Allergy Unknown hallucinations, Uncoded 10/22/20 00:30 mouth sores Certain chemo medication AdvReac Unknown Hospitalize Uncoded 10/22/20 00:30 d Active Medications: Current Medications Generic Name Dose Route Start Last Admin Trade Name Freq PRN Reason Stop Dose Admin Omeprazole 20 mg 09/23/20 09:00 Omeprazole [address]Dr KRAMER DAILY [facility] Pharmacy Consult 1 each 09/22/20 09:06 Consult Rx Perform Med Rec MISCELLANE ONCE PRN Consult order Home Medications Medication Instructions Recorded Confirmed Last Taken Type multivitamin 1 tab PO MOWEFR 10/21/20 10/21/20 Unknown History Physical Exam Vital Signs: Vital Signs: Last Vital Signs Temp 98.4 F 09/22/20 20:03 Pulse 90 09/22/20 20:03 Resp 18 09/22/20 20:03 BP 118/60 09/22/20 20:03 Pulse Ox 98 09/22/20 20:03 Body Mass Index 34.8 Const: General: no acute distress and ill appearing Nutritional Appearance: obese Orientation/consciousness: patient oriented x3 HENMT: Head: Yes normal to inspection Ears: hearing grossly normal bilaterally Mouth: Normal oral and palatal mucosa present Eyes: Sclerae: scleral abnormal (icteric) Pupils: Equal, round and reactive pupils present Neck: Neck: Yes normal visual inspection Chest: Chest palpation & inspection: normal inspection of the chest Resp: Effort & Inspection: normal respiratory effort Auscultation: clear to auscultation bilaterally Cardio: Palpation: normal PMI Rate: regular rate Rhythm: regular rhythm Heart sounds: S1 normal heart sound present, S2 normal heart sound present and no murmurs GI: Palpation (GI): Soft to palpation, nontender, No hepatosplenomegaly present and Ascites present Auscultation: normal bowel sounds Rectal Exam - Female: deferred Skin: General skin exam: no rashes or lesions noted and jaundice Neuro: General: patient oriented x3, gait normal and moves all extremities Cranial nerves: Yes Equal, round and reactive pupils present and Yes Normal hearing present Speech: No Abnormal speech present Extrem: General: Yes edema Psych: Appearance: grossly normal Mental Status: mental status grossly normal Results Labs CBC & Chem 7: 09/22/20 09:34 09/22/20 09:34 Labs: Short CBC 09/22/20 Range/Units 09:34 WBC 6.3 (4.8-10.8) X10*3/uL Hgb 10.0 L (12.0-16.0) g/dl Hct 30.7 L (37-47) % Plt Count 111 L (160-400) X10*3/uL BMP 09/22/20 09:34 Sodium 134 L Potassium 4.5 Chloride 103 Carbon Dioxide 22 BUN 25 H Creatinine 1.12 Calcium 8.6 Liver Function 09/22/20 Range/Units 09:34 Total Bilirubin 6.3 H (0.0-1.0) mg/dL Direct Bilirubin 3.3 H (0.0-0.5) mg/dL AST 49 H (5-31) U/L ALT 23 (0-31) U/L Alkaline Phosphatase 138 H (39-117) U/L Albumin 2.0 L (3.5-5.0) g/dL Microbiology Microbiology Results: Microbiology 09/22/20 11:50 Ascites Fluid Gram Stain - Final Assessment and Plan (1) Hepatic encephalopathy: Status: Resolved (2) Cirrhosis of liver with ascites: Qualifiers: Hepatic cirrhosis type: unspecified hepatic cirrhosis Qualified Code(s): K74.60 - Unspecified cirrhosis of liver; R18.8 - Other ascites Status: Acute (3) Autoimmune hepatitis: Status: Acute (4) Portal vein thrombosis: Status: Acute 70 YF with Fatty liver history of pyloric ulcer, breast and colon cancer followed in GI for ESLD likely related to fatty liver/autoimmune hepatitis. Pt is being followed by Dr Lynn Walker (Transplant Labor Delivery Specialist) at [facility] and has been recently placed on the Liver Transplant list Cirrhosis is complicated by portal hypertension with thrombocytopenia and varices in the splenic hilum on imaging studies. Meld score is 14. 06/2017 LIVER FIBROSIS SCORE OF 0.9, LIVER FIBROSIS STAGE F4, NECROINFLAMMATORY SCORE 0.20 Patient was diagnosed with autoimmune hepatitis in the past in treated with azathioprine for 4-5 years. She stopped this on her own due to concern for increased cancer risk after she was diagnosed with breast cancer. Liver biopsy report was reviewed and was not conclusive for autoimmune hepatitis. Pt had mild elevation of ASMA(23) and gamma globulin of 2.0. Pt has been admitted with worsening ascites, lower extremity edema and pleural effusion. LVP was performed and 3.3 L of cloudy fluid removed - continue IV antibiotics for suspected SBP. Continue PO diuretics with close monitoring of renal function Add Rifaximin 550 mg twice daily for hepatic encephalopathy since pt is not tolerating increased dose of lactulose. HCC SURVEILLANCE: the patient is at risk of developing hepatocellular carcinoma given the presence of cirrhosis and need 6 monthly imaging surveillance with either abdominal ultrasound (US) or multiphase cross-sectional imaging (CT or MRI). 06/27/[address] scan showed shrunken, nodular liver suggesting cirrhosis, extensive varices with innumerable splenic varices and a likely splenorenal shunt. There are paraesophageal, gastric, and abdominal varices. Chronic portal vein thrombosis with cavernous transformation. SURVEILLANCE FOR GASTROESOPHAGEAL VARICES: 07/01/20 No esophageal or gastric varices were detected. Repeat EGD in 1 year.
--- NOTE | 2020-09-22 20:47 | PC.NURSE ---
Pt awake and alert, sitting up in bed. Drank juice and ate jello. Breathing equal and unlabored. Denies pain. VSS. Awaiting inpatient bed assignment. Call lee within reach
--- NOTE | 2020-09-23 00:22 | PC.NURSE ---
Addendum entered by Ba Fisher RN 09/23/20 00:24: Lungs clear - no SOB. Original Note: Patient resting - sleeping. Denies pain. SR on monitor, 89-90. RR 19-21. Denies pain.
[2020-09-23 02:20] VITALS: BP 126/59; PULSE 89; RESP 17; TEMP 36.6; O2SAT 96
[2020-09-23 09:11] VITALS: BP 124/49; PULSE 87; RESP 16; TEMP 36.6; O2SAT 98
[2020-09-23 09:19] LABS: Ammonia 80 umol/L (13-55)
[2020-09-23] MEDS: 0.9 % Sodium Chloride Flush 3 ML SYRINGE IVFLUSH (09:30)
--- NOTE | 2020-09-23 10:16 | MHC.CM.PN ---
pt lives c her in their home. she reports that she is independent in her care but that her helps her when needed. this will include a ride home at dc. pt denies the need for vna at dc. dc plan is home no svcs. cm to cont. to follow.
[2020-09-23 10:22] VITALS: BP 124/60; PULSE 90; RESP 20; O2SAT 97
[2020-09-23] MEDS: Lactulose 20 GM/30 ML SOLUTION PO (10:23)
[2020-09-23] MEDS: rifAXIMin 550 MG TABLET PO (10:23)
[2020-09-23] MEDS: Omeprazole 20 MG CAPSULE.DR PO (10:23)
[2020-09-23] MEDS: Cholecalciferol (Vitamin D3) 25 MCG TABLET PO (10:23)
[2020-09-23] MEDS: Multivitamin TABLET 1 TAB PO (10:23)
[2020-09-23 10:24] VITALS: BP 124/60; PULSE 85
[2020-09-23] MEDS: Cyanocobalamin (Vitamin B-12) 1,000 MCG TABLET 1000 MCG PO (10:24)
[2020-09-23] MEDS: Spironolactone 25 MG TABLET 100 MG PO (10:24)
--- NOTE | 2020-09-23 11:56 | P.DS_ITS ---
DS: Providers Provider Date of Service: 10/14/20 Date of admission: 09/22/20 15:35 Primary care physician: YOLIE Huff DS: Diagnosis Discharge Diagnosis (1) Hepatic encephalopathy: Status: Resolved (2) Cirrhosis of liver with ascites: Status: Acute (3) Autoimmune hepatitis: Status: Acute (4) Portal vein thrombosis: Status: Acute DS: Medications Discharge Medications Home Medications: Home Medications Medication Instructions Recorded Confirmed cholecalciferol (vitamin D3) 25 25 mcg PO DAILY 06/26/20 09/22/20 mcg (1,000 unit) tablet mecobalamin (vitamin B12) 1,000 1,000 mcg PO DAILY 06/26/20 09/22/20 mcg chewable tablet multivitamin 1 tab PO DAILY 06/26/20 09/22/20 furosemide 20 mg PO DAILY 06/28/20 09/22/20 rifaximin [Xifaxan] 550 mg PO BID 09/22/20 09/22/20 spironolactone 100 mg PO DAILY 09/22/20 09/22/20 Previous Rx's Medication Instructions Recorded lactulose 20 gram/30 mL oral 20 g PO TID 60 Days #900 ml 07/08/20 solution DS: Summary Hospital Course Hospital Course: HPI: 70-year-old female patient with past medical history significant for cirrhosis related to fatty liver and autoimmune hepatitis, being followed at [facility] and is on transplant list. As per patient for last 2 to 3 weeks, she noticed worsening abdominal distention and bilateral lower extremity edema. She has been using her Lasix once daily and spironolactone and taking lactulose twice daily, but despite of that, she noticed that the edema was worsening and she is not moving bowels on a regular basis. She denies any associated fever or chills. No nausea, vomiting, or diarrhea. She denies any sick contacts. She never had paracentesis in the past. During her hospitalization in June of 2020, paracentesis was attempted, but there was not enough fluid to be drained. In the emergency room due to significant respiratory distress, the patient underwent bedside paracentesis and 3.3 L of fluid was removed. Studies remains pending. The patient had a negative ultrasound of bilateral lower extremities. In the ER, the patient also treated with 25% albumin, lactulose, 1 g of ceftriaxone for SBP prophylaxis and 1 dose of IV Lasix. At the present time, patient is feeling significantly better with less abdominal discomfort. She has no shortness of breath at rest. PAST MEDICAL HISTORY: The patient has a history of cirrhosis of liver. The patient is status post upper endoscopy and colonoscopy. She is status post right mastectomy due to right breast cancer. She has a history of sigmoid colon cance Hospital course: She presented with anasarca in setting of cirrhosis of liver and noted to have ammonia level of 110,however not confused. She underwent Paracentesis of 3.3L no evidence of SBP. She is given additional lactulose and today ammonia level is down to 80. She will be discharged with increase Lasix to 40 and continue adacton and to take Lactulose 3 times a day. Time Spent with Patient Time attestation: Total time spent providing and/or coordinating discharge services: Discharge coordination time: Greater than 30 minutes Physical Exam Vital Signs: Vital Signs: Last Vital Signs Temp 97.8 F 09/23/20 09:11 Pulse 85 09/23/20 10:24 Resp 20 09/23/20 10:22 BP 124/60 09/23/20 10:24 Pulse Ox 97 09/23/20 10:22 Body Mass Index 34.8 General: AO X 3, no acute distress Resp: CTA bilateral CVS: S1,S2,RRR, pitting edema audelia GI: +BS, NT, no distention Skin: No rash Neuro: motor grossly intact Psych: appropriate affect DS: Data Data Completed and Pending Completed studies during hospitalization [Text1]: Procedures Excision of Stomach, Pylorus, Via Natural or Artificial Opening Endoscopic, Diagnostic (06/28/20) Inspection of Lower Intestinal Tract, Via Natural or Artificial Opening Endoscopic (06/28/20) Pending studies at discharge: Pending at discharge 09/22/20 12:04 Cytology [PTH] Routine Labs on day of discharge: Laboratory Results - last 24 hr 09/22/20 09/22/20 09/23/20 11:50 11:50 08:58 Ammonia 80 H Peritoneal pH 7.53 Peritoneal Tot Protein 1.3 Peritoneal Albumin 0.4 Peritoneal LDH 64 Peritoneal Glucose 124 Preliminary micro results at discharge 09/22/20 11:50 Anaerobic Culture - Preliminary Ascites Fluid No growth to date. Body Fluid Culture - Preliminary No growth after 1 day Discharge Plan Discharge Anticipated Discharge Date/Time: 09/23/20 11:41 Patient Disposition: Home, Self-Care Discharge Diagnosis: autoimmune hepatitis Referrals: Alex Lau, CYLINDER SANDER OPERATOR-BC [Primary Care Provider] - Discharge Medications: Continued spironolactone 100 mg tablet 100 mg PO DAILY RF: 0 Xifaxan 550 mg Tablet 550 mg PO BID RF: 0 multivitamin Tablet 1 tab PO DAILY RF: 0 cholecalciferol (vitamin D3) 25 mcg (1,000 unit) tablet 25 mcg PO DAILY RF: 0 mecobalamin (vitamin B12) 1,000 mcg tablet,chewable 1,000 mcg PO DAILY RF: 0 Changed furosemide 20 mg tablet 40 mg PO DAILY Qty: 0 RF: 0 No Action lactulose 20 gram/30 mL solution 20 g PO TID 60 Days Qty: 900 RF: 3 Discharge Orders: Discharge Order (Routine); Ordered 09/23/20 Ordered By: Earl Burciaga Activity on Discharge: As tolerated Stand Alone Forms: Patient Portal Discharge page Care Plan Goals: Prevent rehospitalization and recurrent encephalopathy Health Concerns: Cirrhosis Plan of Treatment: TaKe lactulose as recommended, take all oter medication as recommended. Assessment: Chronic liver cirrhosis associated with ascietes and hepatic encephalopathy Discharge Date/Time: 09/23/20 14:04
[2020-09-23 12:30] VITALS: BP 129/52; PULSE 89; RESP 20; O2SAT 96
[2020-09-23] MEDS: cefTRIAXone sodium 1 GM in 0.9 % Sodium Chloride 50 ML IV (12:48)
== END 2020-09-23 14:04 | disposition home or self-care (01) | DRG 441 ==
LOC: HO.ED 12:23 → HO.EDOVER 15:45
PROVIDERS: Radiology Diagnostic Radiology; Admitting Provider Hospitalist; Emergency Provider Emergency Medicine; PCP Nurse Practitioner Family; Visit Provider Internal Medicine
PROC: 0W9G3ZZ Drainage of Peritoneal Cavity, Percutaneous Approach (ICD-10-PCS; principal; 2020-09-22 11:30)
DX: K72.90 Hepatic failure, unspecified without coma (principal); I81 Portal vein thrombosis; R18.8 Other ascites; K75.4 Autoimmune hepatitis; K74.60 Unspecified cirrhosis of liver; Z20.822 Contact with and (suspected) exposure to COVID-19; Z88.2 Allergy status to sulfonamides; Z79.899 Other long term (current) drug therapy
CPT/HCPCS: 36415; 49083; 71045; 80048; 80076; 82042; 82140; 82945; 83605; 83615; 83690; 83735; 83880; 83986; 84157; 84484; 85025; 85610; 85730; 86850; 86900; 87040; 87070; 87073; 87205; 87635; 88112; 88305; 88341; 88342; 93005; 93970; 96365; 96367; 96375; 99284; 99285; J0696; J1940; P9047

== ENCOUNTER → 2020-10-02 15:23 | Outpatient (BNVA) | payer MEDICARE, OTHER, SELFPAY | PROVIDERS: PCP Nurse Practitioner Family; Visit Provider Internal Medicine Gastroenterology | DX: K74.60 Unspecified cirrhosis of liver (principal); R18.8 Other ascites; K80.20 Calculus of gallbladder without cholecystitis without obstruction; K86.2 Cyst of pancreas; K59.09 Other constipation | CPT/HCPCS: Q3014 ==

== ENCOUNTER 2020-10-06 12:54 | Outpatient (REF) | payer MEDICARE, OTHER, SELFPAY ==
[2020-10-06 16:49] LABS: INTERNATIONAL NORM RATIO 1.9 (0.9-1.1); Prothrombin Time 23.2 SEC (10.8-13.0)
[2020-10-06 16:58] LABS: Alanine Aminotransferase 23 U/L (0-31); Albumin Level 2.1 g/dL (3.5-5.0); Alkaline Phosphatase 158 U/L (39-117); Anion Gap 12 (12-20); Aspartate Amino Transferase 56 U/L (5-31); Bilirubin Direct 3.7 mg/dL (0.0-0.5); Bilirubin Total 7.9 mg/dL (0.0-1.0); Blood Urea Nitrogen 30 mg/dL (9-16); Calcium 8.5 mg/dL (8.4-10.2); Carbon Dioxide 24 mmol/L (22-29); Chloride 99 mmol/L (96-108); Estimated Glomerular Filt Rate 43; Glucose Random 113 mg/dL (60-115); Potassium 4.7 mmol/L (3.3-5.1); Sodium 130 mmol/L (135-145); Total Protein 6.6 g/dL (6.5-8.0)
== END 2020-10-06 12:55 | disposition home or self-care (01) ==
LOC: HO.HMGCLDS 12:54
PROVIDERS: Internal Medicine Gastroenterology; PCP Nurse Practitioner Family; Visit Provider Internal Medicine Gastroenterology
DX: K74.60 Unspecified cirrhosis of liver (principal); R18.8 Other ascites; I81 Portal vein thrombosis; I50.9 Heart failure, unspecified
CPT/HCPCS: 36415; 80048; 80076; 85610

== ENCOUNTER 2020-10-08 13:19 | Outpatient (REF) | payer MEDICARE, OTHER, SELFPAY ==
[2020-10-08 14:00] LABS: Ammonia 103 umol/L (13-55)
== END 2020-10-08 13:20 | disposition home or self-care (01) ==
LOC: HO.LAB 13:19
PROVIDERS: Absent Provider Nurse Practitioner Family; PCP Nurse Practitioner Family; Visit Provider Internal Medicine Gastroenterology
DX: R18.8 Other ascites (principal); K74.60 Unspecified cirrhosis of liver
CPT/HCPCS: 36415; 82140

== ENCOUNTER 2020-10-13 09:24 | Day surgery (SDC) | payer MEDICARE, OTHER, SELFPAY ==
[2020-10-13 09:57] VITALS: BMI 35.2
[2020-10-13 10:32] LABS: Ammonia 71 umol/L (13-55)
[2020-10-13 10:39] LABS: Anion Gap 10 (12-20); Blood Urea Nitrogen 37 mg/dL (9-16); Carbon Dioxide 26 mmol/L (22-29); Chloride 100 mmol/L (96-108); Estimated Glomerular Filt Rate 36; Potassium 4.6 mmol/L (3.3-5.1); Sodium 131 mmol/L (135-145)
[2020-10-13 12:05] VITALS: BP 124/54; PULSE 91; RESP 18; TEMP 36.6; O2SAT 99
--- NOTE | 2020-10-13 12:17 | HO.RADPN ---
RADIOLOGY Narrative Narrative: RLQ paracentesis performed using 5 Fr rapid centesis catheter. 3.6 L cloudy serosanguinous question chylous fluid removed. Diagnostic specimen sent.
[2020-10-13 12:20] VITALS: BP 129/54; PULSE 88; RESP 18; O2SAT 99
[2020-10-13 12:35] VITALS: BP 115/46; PULSE 87; RESP 18; O2SAT 99
[2020-10-13 12:50] VITALS: BP 119/44; PULSE 91; RESP 18; O2SAT 98
[2020-10-13 13:05] VITALS: BP 103/44; PULSE 89; RESP 18; O2SAT 98
[2020-10-13 13:28] LABS: MN% 84.1 %; PMN% 15.9 %; RBC Peritoneal Fluid 0.021 X10*6/uL
[2020-10-13 13:52] LABS: BF Shift QC OK YES; Lymphocyte Peritoneal Fl 30 %; Man Diluent Bkgrd OK YES; Monocytes Peritoneal Fl 10 %; Neutrophils Peritoneal Fluid 18 %; Other Peritioneal Fl 42 %
[2020-10-14 08:16] LABS: Albumin Peritoneal Fluid 0.3
[2020-10-14 08:17] LABS: LDH Peritoneal Fluid 71; Total Protein Peritoneal Fluid 1.3
== END 2020-10-13 12:25 | disposition home or self-care (01) ==
PROVIDERS: Internal Medicine Gastroenterology; PCP Nurse Practitioner Family; Visit Provider Radiology Diagnostic Radiology
DX: R18.8 Other ascites (principal); K74.60 Unspecified cirrhosis of liver; K75.4 Autoimmune hepatitis; Z85.3 Personal history of malignant neoplasm of breast; Z85.038 Personal history of other malignant neoplasm of large intestine
CPT/HCPCS: 36415; 49083; 80051; 82042; 82140; 82565; 83615; 84157; 84520; 87071; 87073; 87102; 87103; 87116; 87205; 88112; 88305; 88341; 88342; 89051

== ENCOUNTER 2020-10-14 17:33 | Outpatient (REF) | payer MEDICARE, OTHER, SELFPAY ==
[2020-10-14 18:22] LABS: INTERNATIONAL NORM RATIO 1.9 (0.9-1.1); Prothrombin Time 23.3 SEC (10.8-13.0)
[2020-10-14 18:32] LABS: Hematocrit 26.9 % (37-47); Hemoglobin 9.2 g/dl (12.0-16.0)
[2020-10-14 18:42] LABS: Alanine Aminotransferase 21 U/L (0-31); Alkaline Phosphatase 146 U/L (39-117); Anion Gap 12 (12-20); Aspartate Amino Transferase 52 U/L (5-31); Bilirubin Direct 4.1 mg/dL (0.0-0.5); Bilirubin Total 7.6 mg/dL (0.0-1.0); Blood Urea Nitrogen 40 mg/dL (9-16); Calcium 8.2 mg/dL (8.4-10.2); Carbon Dioxide 25 mmol/L (22-29); Chloride 98 mmol/L (96-108); Estimated Glomerular Filt Rate 33; Glucose Random 150 mg/dL (60-115); Potassium 4.9 mmol/L (3.3-5.1); Sodium 130 mmol/L (135-145); Total Protein 6.3 g/dL (6.5-8.0)
== END 2020-10-14 17:34 | disposition home or self-care (01) ==
LOC: HO.LAB 17:33
PROVIDERS: Absent Provider Internal Medicine; PCP Internal Medicine; Visit Provider Internal Medicine Gastroenterology
DX: R94.5 Abnormal results of liver function studies (principal); K74.60 Unspecified cirrhosis of liver; R18.8 Other ascites
CPT/HCPCS: 36415; 80048; 80076; 85014; 85018; 85610

== ENCOUNTER 2020-10-21 12:44 | Outpatient (REF) | payer MEDICARE, OTHER, SELFPAY ==
[2020-10-21 12:52] LABS: MANUAL DIFF FLAG NO
[2020-10-21 13:00] LABS: Basophils Absolute Auto 0.1 X10*3/uL (0.0-0.2); Eosinophils Absolute Auto 0.2 X10*3/uL (0.0-0.4); Eosinophils Percent Auto 2.5 % (0-4); Hematocrit 26.2 % (37-47); Hemoglobin 8.8 g/dl (12.0-16.0); Imm Gran Abs Auto 0.13 X10*3/uL (0.00-0.03); Imm Gran Pct Auto 1.6 % (0.0-0.4); Lymphocytes Percent Auto 11.9 % (20-40); Mean Corpuscular HGB Conc 33.6 g/dl (31.0-35.0); Mean Corpuscular Hemoglobin 38.6 pg (27.0-33.0); Mean Platelet Volume 9.2 fL (9.4-12.3); Monocytes Absolute Auto 1.3 X10*3/uL (0.1-1.2); Monocytes Percent Auto 15.9 % (2-11); Neutrophils Absolute Auto 5.6 X10*3/uL (2.0-8.3); Neutrophils Percent Auto 67.1 % (45-73); Platelet Count 113 X10*3/uL (160-400); Red Blood Count 2.28 X10*6/uL (4.20-5.50); Red Cell Distribution Width 15.2 % (11.0-16.0); White Blood Count 8.3 X10*3/uL (4.8-10.8)
[2020-10-21 13:02] LABS: Ammonia 125 umol/L (13-55)
[2020-10-21 13:05] LABS: Mean Corpuscular Volume 114.9 fL (80-98)
[2020-10-21 13:12] LABS: INTERNATIONAL NORM RATIO 1.6 (0.9-1.1); Prothrombin Time 19.3 SEC (10.8-13.0)
[2020-10-21 13:33] LABS: Alanine Aminotransferase 27 U/L (0-31); Alkaline Phosphatase 153 U/L (39-117); Aspartate Amino Transferase 51 U/L (5-31); Bilirubin Direct 4.2 mg/dL (0.0-0.5); Bilirubin Total 8.3 mg/dL (0.0-1.0); Blood Urea Nitrogen 53 mg/dL (9-16); Calcium 8.2 mg/dL (8.4-10.2); Estimated Glomerular Filt Rate 25; Glucose Random 92 mg/dL (60-115); Total Protein 6.3 g/dL (6.5-8.0)
[2020-10-21 13:49] LABS: Anion Gap 14 (12-20); Carbon Dioxide 21 mmol/L (22-29); Chloride 100 mmol/L (96-108); Sodium 129 mmol/L (135-145)
== END 2020-10-21 12:45 | disposition home or self-care (01) ==
LOC: HO.HVNA 12:44
PROVIDERS: PCP Internal Medicine Gastroenterology; Referring Provider Internal Medicine Gastroenterology; Visit Provider Internal Medicine Medical Oncology
DX: Z13.89 Encounter for screening for other disorder (principal)
CPT/HCPCS: 80053; 80076; 82140; 85025; 85610

== ENCOUNTER 2020-10-21 17:19 | Inpatient (IN) | payer MEDICARE, OTHER, SELFPAY ==
--- NOTE | ~2020-10-21 | US_ITS ---
EXAMINATION: ULTRASOUND-GUIDED PARACENTESIS CLINICAL INFORMATION: Ascites COMPARISON: Previous abdominal ultrasound from yesterday TECHNIQUE: Procedure and risks and benefits including bleeding, infection and low blood pressure were discussed with the patient and informed consent was obtained. The left lower quadrant was prepped and draped in usual sterile fashion. The skin and soft tissues were anesthetized with 1% lidocaine plain. Using ultrasound guidance and a 5 Uzbek rapid centesis catheter, access to the ascitic fluid was obtained. 3.3 L of cloudy serous sanguinous fluid was removed. No diagnostic specimen was sent. FINDINGS: There is a moderate to large amount of ascites. US/US paracentesis abd w/image IMPRESSION: Ultrasound-guided paracentesis.
--- NOTE | ~2020-10-21 | US_ITS ---
EXAMINATION: US ABDOMEN LIMITED CLINICAL INFORMATION: Right upper quadrant pain. COMPARISON: None TECHNIQUE: Real-time imaging of the right upper quadrant abdominal viscera. Examination is technically very limited due to body habitus and free fluid. Patient was also unable to hold her breath FINDINGS: PANCREAS: Scattered by overlying bowel gas LIVER: Lobulated atrophic cirrhotic appearing liver. No focal hepatic lesion. No significant flow was appreciated within the main portal vein. GALLBLADDER: Echogenic bile within the gallbladder. There is nonspecific gallbladder wall thickening in the setting of underlying ascites and liver disease. COMMON BILE DUCT: Normal in caliber measuring 0.7 cm in diameter. RIGHT KIDNEY: Normal. No hydronephrosis. No renal calculi or focal parenchymal lesions. The kidney measures 10.5 cm in maximum dimension. FREE FLUID: Moderate volume of ascites US/US abdomen limited IMPRESSION: Limited evaluation. Atrophic nodular cirrhotic appearing liver without significant flow appreciated in the main portal vein. No discrete hepatic lesions seen. Moderate volume of ascites. Nonspecific gallbladder wall thickening and echogenic bile.
[2020-10-21 17:27] VITALS: BP 122/84; PULSE 90
--- NOTE | 2020-10-21 17:36 | ED.GENADULT ---
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 Patient complaining of right upper quadrant intermittent pain also with increased abdominal distention and lower extremity edema had paracentesis done on 10/13 has stopped taking lactulose for 3- 4 days due to diarrhea and decrease the dose of diuretics to half the dose for last few days. Patient denied any fever chills nausea vomiting or diarrhea at this time patient took lactulose prior to arrival patient denies any change in sensorium feels weak and tired and nauseated Onset (ago): day(s) (2) Related Data Home Medications Medication Instructions Recorded Confirmed multivitamin 1 tab PO MOWEFR 10/21/20 10/21/20 Previous Rx's Medication Instructions Recorded lactulose 20 gram/30 mL oral 20 g PO TID 60 Days #900 ml 10/09/20 solution Allergies Allergy/AdvReac Type Severity Reaction Status Date / Time Sulfa (Sulfonamide Allergy Intermediate Itching Verified 10/21/20 17:36 Antibiotics) [SULFA (SULFONAMIDE ANTIBIOTICS)] Omeprazole Allergy Unknown Coughing Uncoded 10/21/20 17:36 steroids Allergy Unknown hallucinations, Uncoded 10/21/20 17:36 mouth sores STEROIDS AdvReac Severe HALLUCINATI Uncoded 10/21/20 17:36 ONS/NAUSEA/ DIZZINESS Certain chemo medication AdvReac Unknown Hospitalize Uncoded 10/21/20 17:36 d Review of Systems Review of Systems: Constitutional : No Weight loss, No Fever, No Chills ENT/Mouth : No sore throat, No Rhinorrhea Eyes: No Eye Pain, No Swelling Cardiovascular : No Chest Pain, no palpitations Respiratory : No Cough, No Sputum, + shortness of breath Gastrointestinal : no Nausea, No Vomiting, No Diarrhea, No abdominal Pain, no black stools Genitourinary : No Dysuria, No Urinary Frequency Musculoskeletal : No joint pain, No Myalgias, No Joint Swelling Skin : No Skin Lesions, No rash Neuro : + Weakness, No Numbness, No Dizziness, No Headache Psych : No Anxiety/Panic, No Depression Heme/Lymph: No Bruising, No Lymphadenopathy Endocrine : No Polyuria, No Polydipsia All other systems reviewed and are negative PMFSH Past Medical History Medical History Cirrhosis of liver Colon cancer Surgical History History of esophagogastroduodenoscopy (EGD) Hx of colonoscopy Hx of right mastectomy Family History Family History Father Hx of diabetes mellitus Mother History of renal pelvis cancer Brother Hx of diabetes mellitus Sister No problems noted. Son No problems noted. Daughter No problems noted. Social History Social History Household Members: Spouse Housing: House Do you presently have visiting nurse or other home services: Yes ([facility]) Alcohol intake: never Smoking Status: Never smoker Second Hand Smoke Exposure: No Use of substances other than those prescribed or required for medical reasons: No Have you been hit, kicked, punched, or otherwise hurt by someone within the past year? If so, by whom?: No Do you feel safe in your current relationship?: Yes Is there a partner from a previous relationship who is making you feel unsafe now?: No Are you made to feel afraid or neglected: No Advance Directives: No Advance Directives Information Provided: No Advance Directives on File: No Do you have thoughts of harming others: None Do you have a plan to hurt others: No Plan Recently lost weight without trying: Yes How much weight loss: 2-13 pounds Eating poorly because of decreased appetite: No Nutrition screen score: 3 Nutrition Risks: No Nutritional Risk service: No Current occupational status: retired Physical Exam Vital Signs: Vital Signs: Last Vital Signs Temp 97.7 F 10/21/20 23:41 Pulse 101 H 10/21/20 23:41 Resp 18 10/21/20 23:41 BP 141/65 H 10/21/20 23:41 Pulse Ox 96 10/21/20 23:41 Body Mass Index 36.2 Const: General: comfortable and ill appearing Orientation/consciousness: patient oriented x3 HENMT: Head: Yes normocephalic Face and sinus: Yes normal facial exam Mouth: Normal oral and palatal mucosa present Eyes: General: appearance normal, both eyes and all related structures Conjunctivae: conjunctivae normal Sclerae: scleral abnormal (Icterus+) Neck: Neck: Yes normal visual inspection Chest: Chest palpation & inspection: normal inspection of the chest Resp: Effort & Inspection: normal respiratory effort Auscultation: clear to auscultation bilaterally, no crackles, no rales and no rhonchi Cardio: Palpation: normal PMI Rate: regular rate Rhythm: regular rhythm Heart sounds: S1 normal heart sound present and S2 normal heart sound present Peripheral pulses: Peripheral pulses 2+ throughout GI: Palpation (GI): Soft to palpation and Ascites present Percussion: Yes dullness to percussion Auscultation: normal bowel sounds : General: Yes no CVA tenderness Back/Spine/Pelvis: Back: no CVA tenderness Thoracic/Lumbar Spine: thoracic and lumbar spine normal to inspection Skin: General skin exam: no rashes or lesions noted Neuro: General: patient oriented x3, tone normal, moves all extremities and no focal motor deficits Extrem: General: Yes normal to inspection, Yes no calf tenderness and Yes pedal edema Medical Decision Making MDM Narrative Medical decision making narrative: Patient with nonalcoholic cirrhosis/MARTEL with portal thrombosis in transplant list at [facility] came for elevated potassium and creatinine with right upper quadrant pain. Ultrasound negative for cholecystitis low blood flow in the main portal vein with history of portal vein thrombosis. Patient received p.o. Kayexalate calcium gluconate and insulin for hyperkalemia. Will admit patient for DINORA and hyperkalemia and worsening of liver functions and ascites Repeat potassium was 5.6 after medications Lab Data Lab results reviewed: Yes I reviewed the patient's lab results. Result diagrams: 10/21/20 21:13 Labs: Lab Results 10/21/20 10/21/20 Range/Units 18:16 19:18 POC Glucose 108 144 H (60-115) mg/dL ECG Data Attestation: I personally reviewed and interpreted this ECG as follows: Interpretation: Normal sinus rhythm with heart rate of 85 beats per min low voltage QRS poor progression of R-wave normal axis normal intervals no acute ischemic changes Discharge Plan Discharge Clinical Impression: Acute hyperkalemia Acute renal failure superimposed on chronic kidney disease Qualifiers: Acute renal failure type: with acute tubular necrosis Chronic kidney disease stage: stage 2 (mild) Qualified Code(s): N17.0 - Acute kidney failure with tubular necrosis Chronic hepatic failure Qualifiers: Hepatic coma status: without hepatic coma Qualified Code(s): K72.10 - Chronic hepatic failure without coma Patient Disposition: Admitted As Inpatient Interventions: Admission Worksheet (ED) Last Done: 10/21/20 23:22 Discharge Date/Time: 10/21/20 23:23
[2020-10-21 17:38] VITALS: BP 132/56; PULSE 89; RESP 21; TEMP 36.6; O2SAT 99; BMI 36.2
--- NOTE | 2020-10-21 17:46 | ECG_ITS ---
Test Reason : ABNORMAL LABS Blood Pressure : / mmHG Vent. Rate : 085 BPM Atrial Rate : 085 BPM P-R Int : 164 ms QRS Dur : 094 ms QT Int : 368 ms P-R-T Axes : 050 011 014 degrees QTc Int : 437 ms Normal sinus rhythm Low voltage QRS Cannot rule out Anterior infarct (cited on or before 22-SEP-2020) Abnormal ECG When compared with ECG of 22-SEP-2020 09:50, Premature ventricular complexes are no longer Present Questionable change in initial forces of Lateral leads Referred By: Janes Somers Electronically Signed By:Nicanor Suggs
[2020-10-21] MEDS: Sodium Polystyrene Sulfon/Sorb 15 GM/60 ML ORAL.SUSP 30 GM PO (18:13)
[2020-10-21] MEDS: Sodium Bicarbonate 8.4% 50 MEQ/50 ML VIAL IVPUSH (18:19)
[2020-10-21 18:21] LABS: Glucose, Whole Blood 108 mg/dL (60-115)
[2020-10-21] MEDS: Insulin Regular, Human 100 UNIT/ML 3 ML VIAL 6 UNIT IVPUSH (18:25)
[2020-10-21] MEDS: Calcium Gluconate/NaCl,Iso-Osm 2 GM/100 ML PLAST..BAG IV (18:32)
[2020-10-21] MEDS: 0.9 % Sodium Chloride 500 ML IVCONT (18:43)
[2020-10-21 18:52] VITALS: BP 134/49; PULSE 94; RESP 22; TEMP 36.6; O2SAT 100
[2020-10-21 19:22] LABS: Glucose, Whole Blood 144 mg/dL (60-115)
[2020-10-21 20:36] VITALS: BP 142/70; PULSE 91; RESP 20; TEMP 36.7; O2SAT 98
--- NOTE | 2020-10-21 20:58 | P.HPHOSP_ITS ---
History of Present Illness Date of Service: 10/21/20 Chief Complaint: Right upper quadrant abdominal pain 70-year-old female with a past medical history fatty liver, autoimmune hepatitis, liver cirrhosis, peptic ulcer disease, history of MRSA bacteremia, history of breast cancer, history of colon cancer, thrombocytopenia, liver cirrhosis-obtains frequent therapeutic paracentesis-last Pap was on 10/13/2020, removed 3.6 L of fluid with chief complaint right upper quadrant abdominal pain; ER course: Per ER team patient noted to potassium level of 6.0. No EKG changes. Noted a KI and hyponatremia. Patient's ammonia level was elevated to 125. Reported that patient was not taking her lactulose the past few days. No active signs of encephalopathy. Patient had mild abdominal discomfort-obtaining right upper quadrant ultrasound. [facility] Medical History Cirrhosis of liver Colon cancer Family History Father Hx of diabetes mellitus Mother History of renal pelvis cancer Brother Hx of diabetes mellitus Sister No problems noted. Son No problems noted. Daughter No problems noted. Surgical History History of esophagogastroduodenoscopy (EGD) Hx of colonoscopy Hx of right mastectomy Social History Household Members: Spouse Housing: House Do you presently have visiting nurse or other home services: Yes ([facility]) Alcohol intake: never Smoking Status: Never smoker Second Hand Smoke Exposure: No service: No Current occupational status: retired Meds Allergies Allergy/AdvReac Type Severity Reaction Status Date / Time Sulfa (Sulfonamide Allergy Intermediate Itching Verified 10/22/20 00:30 Antibiotics) [SULFA (SULFONAMIDE ANTIBIOTICS)] omeprazole Allergy Unknown Cough Verified 10/22/20 00:32 steroids Allergy Unknown hallucinations, Uncoded 10/22/20 00:30 mouth sores Certain chemo medication AdvReac Unknown Hospitalize Uncoded 10/22/20 00:30 d Active Medications: Current Medications Generic Name Dose Route Start Last Admin Trade Name Freq PRN Reason Stop Dose Admin Sodium Chloride 3 ml 10/22/20 00:00 0.9 % Sodium Chloride Flush 3 Ml Syringe IVFLUSH QSHIFT [facility] Home Medications Medication Instructions Recorded Confirmed Last Taken Type multivitamin 1 tab PO MOWEFR 10/21/20 10/21/20 Unknown History Physical Exam Vital Signs and Narrative: Vital Signs: Last Vital Signs Temp 98.0 F 10/21/20 20:36 Pulse 91 10/21/20 20:36 Resp 20 10/21/20 20:36 BP 142/70 H 10/21/20 20:36 Pulse Ox 98 10/21/20 20:36 Body Mass Index 36.2 Gen: Appears be in no acute distress HEENT: NCAT, Moist mucosa. Pulmonary: Vesicular breath sounds, fair air entry CVS: Normal S1-S2 Abdomen: BS+, Soft, distended; Extremities: Warm well perfused Neuro: Alert and awake. No asterixis. Results Labs CBC and Chem 7: 10/23/20 05:36 10/23/20 05:36 Labs: Laboratory Results - last 24 hr 10/21/20 10/21/20 18:16 19:18 POC Glucose 108 144 H Imaging Radiologist's Impressions: Impressions Abdomen Ultrasound 10/21/20 18:17 IMPRESSION: Limited evaluation. Atrophic nodular cirrhotic appearing liver without significant flow appreciated in the main portal vein. No discrete hepatic lesions seen. Moderate volume of ascites. Nonspecific gallbladder wall thickening and echogenic bile. Assessment and Plan (1) Acute renal failure superimposed on chronic kidney disease: Qualifiers: Acute renal failure type: with acute tubular necrosis Chronic kidney disease stage: stage 2 (mild) Qualified Code(s): N17.0 - Acute kidney failure with tubular necrosis; N18.2 - Chronic kidney disease, stage 2 (mild) Problem details: Renal function is gradually improving Status: Acute 70-year-old female with a past medical history decompensated liver cirrhosis with ascites-obtaining frequent therapeutic paracentesis; history of colon cancer, history of MRSA bacteremia, peptic ulcer disease presented to the hospital with a chief complaint abdominal discomfort; noted to have DINORA, hyperkalemia, hyponatremia. DINORA: Avoid nephrotoxins. Will consult Nephrology further recommendations. Hyperkalemia: Patient received insulin, dextrose, calcium gluconate in the ER. Follow up the repeat levels. Hyponatremia: Likely the setting of volume overload. Continue to monitor sodium levels. Nephrology consulted Ascites: Continue home diuretics except aldactone. IR consult therapeutic tap. Empiric ceftriaxone. Right upper quadrant ultrasound showed Atrophic nodular cirrhotic appearing liver without significant flow appreciated in the main portal vein. No discrete hepatic lesions seen. Moderate volume of ascites. Nonspecific Gallbladder wall thickening and echogenic bile. Liver cirrhosis/hyperammonemia: Continue rifaximin and lactulose. Gastroenterology consult. Monitor for any signs encephalopathy. Anemia/thrombocytopenia: Stable. Continue to monitor. DVT prophylaxis: SCD boots Code status:Full Code
[2020-10-21 21:35] LABS: COVID-19 Test Negative (Negative); IDNOW Serial# 9DD0AD1C
[2020-10-21 21:45] LABS: Osmolality, Serum 304 mosm/kg (281-305)
[2020-10-21 21:53] LABS: Alanine Aminotransferase 29 U/L (0-31); Albumin Level 1.9 g/dL (3.5-5.0); Alkaline Phosphatase 153 U/L (39-117); Anion Gap 15 (12-20); Aspartate Amino Transferase 52 U/L (5-31); Bilirubin Total 7.9 mg/dL (0.0-1.0); Blood Urea Nitrogen 54 mg/dL (9-16); Calcium 8.7 mg/dL (8.4-10.2); Carbon Dioxide 22 mmol/L (22-29); Chloride 100 mmol/L (96-108); Creatinine Clr Calc Pharmacy 30.4; Estimated Glomerular Filt Rate 24; Glucose Random 126 mg/dL (60-115); Potassium 5.6 mmol/L (3.3-5.1); Sodium 131 mmol/L (135-145); Total Protein 6.3 g/dL (6.5-8.0)
[2020-10-21] MEDS: cefTRIAXone sodium 1 GM in 0.9 % Sodium Chloride 50 ML IV (22:45)
[2020-10-21 23:41] VITALS: BP 141/65; PULSE 101; RESP 18; TEMP 36.5; O2SAT 96
[2020-10-21 23:48] VITALS: BMI 37.4
[2020-10-22] VITALS (9 sets, daily range): BP systolic 113–140; BP diastolic 52–63; PULSE 88–100; RESP 18–22; TEMP 36.4–37.3; O2SAT 96–98
[2020-10-22] MEDS: 0.9 % Sodium Chloride Flush 3 ML SYRINGE IVFLUSH ×2 (00:20→22:29)
[2020-10-22 07:00] LABS: Basophils Absolute Auto 0.1 X10*3/uL (0.0-0.2); Basophils Percent Auto 1.1 % (0-2); Eosinophils Absolute Auto 0.2 X10*3/uL (0.0-0.4); Eosinophils Percent Auto 2.1 % (0-4); Hematocrit 24.5 % (37-47); Hemoglobin 8.3 g/dl (12.0-16.0); Imm Gran Abs Auto 0.15 X10*3/uL (0.00-0.03); Imm Gran Pct Auto 1.6 % (0.0-0.4); Lymphocytes Absolute Auto 1.1 X10*3/uL (1.2-4.9); Lymphocytes Percent Auto 11.4 % (20-40); MANUAL DIFF FLAG SCAN; Mean Corpuscular HGB Conc 33.9 g/dl (31.0-35.0); Mean Corpuscular Hemoglobin 38.8 pg (27.0-33.0); Monocytes Absolute Auto 1.8 X10*3/uL (0.1-1.2); Monocytes Percent Auto 19.3 % (2-11); Neutrophils Absolute Auto 6.1 X10*3/uL (2.0-8.3); Neutrophils Percent Auto 64.5 % (45-73); Platelet Count 115 X10*3/uL (160-400); Red Blood Count 2.14 X10*6/uL (4.20-5.50); Red Cell Distribution Width 15.4 % (11.0-16.0); SCAN SMEAR FLAG 1; White Blood Count 9.5 X10*3/uL (4.8-10.8)
[2020-10-22 07:15] LABS: Mean Corpuscular Volume 114.5 fL (80-98)
[2020-10-22 07:37] LABS: Alanine Aminotransferase 29 U/L (0-31); Albumin Level 1.8 g/dL (3.5-5.0); Alkaline Phosphatase 140 U/L (39-117); Aspartate Amino Transferase 50 U/L (5-31); Bilirubin Total 7.7 mg/dL (0.0-1.0); Total Protein 5.9 g/dL (6.5-8.0)
[2020-10-22 07:50] LABS: Anion Gap 12 (12-20); Blood Urea Nitrogen 53 mg/dL (9-16); Calcium 8.1 mg/dL (8.4-10.2); Carbon Dioxide 24 mmol/L (22-29); Chloride 100 mmol/L (96-108); Creatinine Clr Calc Pharmacy 33.7; Estimated Glomerular Filt Rate 27; Glucose Random 108 mg/dL (60-115); Magnesium 2.5 mg/dL (1.6-2.6); Potassium 5.2 mmol/L (3.3-5.1); Sodium 131 mmol/L (135-145)
[2020-10-22 07:54] LABS: SLIDE REVIEW VERIFIED
--- NOTE | 2020-10-22 09:05 | MHC.HEMONC ---
late note: pt had lab draw 10/21/20 which was called to me as K+ was critical at 6.0. Dr Jacob informed and said it should be reported to pt PCP. I called pt and told her and she told me that PCP was DOMINGO Zimmerman. I had lab chemistry staff forward immediately to Dr Zimmerman for f/u.
[2020-10-22] MEDS: Lactulose 20 GM/30 ML SOLUTION PO ×2 (10:00→20:48)
[2020-10-22] MEDS: Furosemide 20 MG TABLET PO (10:29)
--- NOTE | 2020-10-22 12:22 | P.PNIM_ITS ---
Subjective Subjective Date of Service: 10/22/20 Interval History: weak Cardiovascular Cardiovascular: Reports no additional cardiovascular complaints Gastrointestinal Gastrointestinal: Reports no additional gastrointestinal complaints Physical Exam Vital Signs: Vital Signs: Last Vital Signs Temp 97.8 F 10/22/20 11:18 Pulse 95 10/22/20 11:18 Resp 20 10/22/20 11:18 BP 122/60 10/22/20 11:18 Pulse Ox 96 10/22/20 11:18 Body Mass Index 37.4 General: lethargic, oriented times 3, juandiced, ill appearing Resp: diminished CVS: S1,S2,RRR GI: soft, non tender, distended Neuro: motor grossly intact, mild asterixis Psych: appropriate affect Objective Data Current Medications Generic Name Dose Route Start Last Admin Trade Name Freq PRN Reason Stop Dose Admin Ceftriaxone Sodium 1 gm/ 50 mls @ 100 mls/hr 10/21/20 22:00 10/21/20 23:45 Sodium Chloride IV Infused Q24H [facility] Infusion Lactulose 20 gm 10/22/20 09:00 10/22/20 10:00 Lactulose 20 Gm/30 Ml Solution PO 20 gm TID [facility] Administration Pharmacy Consult 1 each 10/21/20 21:22 Consult Rx Perform Med Rec MISCELLANE ONCE PRN Consult order Rifaximin 550 mg 10/22/20 21:00 Rifaximin 550 Mg Tablet PO BID [facility] Sodium Chloride 3 ml 10/22/20 00:00 10/22/20 10:13 0.9 % Sodium Chloride Flush 3 Ml Syringe IVFLUSH Not Given QSHIFT [facility] Labs CBC & Chem 7: 10/22/20 05:48 10/22/20 05:48 Assessment and Plan (1) Acute renal failure superimposed on chronic kidney disease: Status: Acute Assessment and Plan: 70F with AI/MARTEL cirrhosis, portal vein thrombosus, was sent in for hyperkalemia, noted to have worsening renal function and progression of liver disease. DINORA with hyperkalemia hyperkalemia improved, aldactone held nephro following AI/MARTEL cirrhosis, with mild hepatic encephalopathy and ascites lactulose, rifaximin paracentesis today gi following breast cancer in remission
--- NOTE | 2020-10-22 12:29 | MHC.CM.PN ---
met with pt who lives with her . pt reports that she is active with [facility] she has own transp[ortation home
[2020-10-22] MEDS: Lidocaine HCl 1 % MPF 5 ML VIAL SUBCUT (12:45)
--- NOTE | 2020-10-22 13:27 | PM.DS ---
DS: Providers Provider Date of Service: 10/22/20 Date of admission: 10/21/20 20:52 Primary care physician: Unknown Physician Consults: 10/21/20 20:52 Consult to Gastroenterology Routine Consulting Provider: Ozzie Zimmerman Reason for consultation: Cirrhosis/Hypermmonemia Consult to Nephrology Routine Consulting Provider: James Stout Reason for consultation: Hyponatremia/Hyperkalemia/DINORA DS: Diagnosis Discharge Diagnosis (1) Acute renal failure superimposed on chronic kidney disease: Status: Acute (2) Cirrhosis of liver with ascites: Status: Acute (3) Portal vein thrombosis: Status: Acute (4) Autoimmune hepatitis: Status: Acute (5) Breast cancer, left: Status: Acute (6) Acute hyperkalemia: Status: Acute DS: Medications Discharge Medications Home Medications: Home Medications Medication Instructions Recorded Confirmed multivitamin 1 tab PO MOWEFR 10/21/20 10/21/20 Previous Rx's Medication Instructions Recorded lactulose 20 gram/30 mL oral 20 g PO TID 60 Days #900 ml 10/09/20 solution DS: Summary Hospital Course Hospital Course: patient was admitted for DINORA and hyperkalemia in the setting of advancing liver cirrhosis thought to be autoimmune/MARTEL. her diuretics and aldactone were held, she was given kayexylate, potassium improved to 5.2, creatinine is slightly better from 2.03 to 1.86. tbili 7.7, inr 1.6, sodium 131, MELD 28. patient had 3L paracentesis for symptomatic ascites. she was given albumin. she was mildly encephalopathic, given lactulose and rifaximin. discussion was had with patient's liver transplant dr, dr Myers at [facility], and decision made to transfer for further care. Time Spent with Patient Time attestation: Total time spent providing and/or coordinating discharge services: Discharge coordination time: Greater than 30 minutes Physical Exam Vital Signs: Vital Signs: Last Vital Signs Temp 97.8 F 10/22/20 11:18 Pulse 88 10/22/20 13:02 Resp 19 10/22/20 13:02 BP 123/55 L 10/22/20 13:02 Pulse Ox 97 10/22/20 13:02 Body Mass Index 37.4 General: lethargic, oriented times 3, juandiced, ill appearing Resp: CTA bilateral CVS: S1,S2,RRR GI: soft, non tender, distended Neuro: mild asterixis Psych: appropriate affect DS: Data Data Completed and Pending Completed studies during hospitalization [Text1]: Procedures Drainage of Peritoneal Cavity, Percutaneous Approach (09/22/20) Excision of Stomach, Pylorus, Via Natural or Artificial Opening Endoscopic, Diagnostic (06/28/20) Inspection of Lower Intestinal Tract, Via Natural or Artificial Opening Endoscopic (06/28/20) Labs on day of discharge: Laboratory Results - last 24 hr 10/21/20 10/21/20 10/21/20 18:16 19:18 21:13 WBC RBC Hgb Hct MCV MCH MCHC RDW Plt Count MPV Immature Gran % (Auto) Neut % (Auto) Lymph % (Auto) Tucker % (Auto) Eos % (Auto) Baso % (Auto) Lymph # (Auto) Tucker # (Auto) Eos # (Auto) Baso # (Auto) Abs Immat Gran (auto) Absolute Neuts (auto) Absolute Nucleated RBC Nucleated RBC % (auto) Smear Tech's Comments Sodium 131 L Potassium 5.6 H Chloride 100 Carbon Dioxide 22 Anion Gap 15 BUN 54 H Creatinine 2.03 H Estim Creat Clear Calc 30.4 Estimated GFR 24 POC Glucose 108 144 H Random Glucose 126 H D Osmolality Calcium 8.7 D Magnesium Total Bilirubin 7.9 H Direct Bilirubin AST 52 H ALT 29 Alkaline Phosphatase 153 H Total Protein 6.3 L Albumin 1.9 L COVID-19 (JAS) COVID-19 Clin Com 10/21/20 10/21/20 10/22/20 21:13 21:13 05:48 WBC RBC Hgb Hct MCV MCH MCHC RDW Plt Count MPV Immature Gran % (Auto) Neut % (Auto) Lymph % (Auto) Tucker % (Auto) Eos % (Auto) Baso % (Auto) Lymph # (Auto) Tucker # (Auto) Eos # (Auto) Baso # (Auto) Abs Immat Gran (auto) Absolute Neuts (auto) Absolute Nucleated RBC Nucleated RBC % (auto) Smear Tech's Comments Sodium Potassium Chloride Carbon Dioxide Anion Gap BUN Creatinine Estim Creat Clear Calc Estimated GFR POC Glucose Random Glucose Osmolality 304 Calcium Magnesium Total Bilirubin 7.7 H Direct Bilirubin 4.0 H AST 50 H ALT 29 Alkaline Phosphatase 140 H Total Protein 5.9 L Albumin 1.8 L COVID-19 (JAS) Negative COVID-19 Clin Com See Note 10/22/20 10/22/20 05:48 05:48 WBC 9.5 RBC 2.14 L Hgb 8.3 L Hct 24.5 L MCV 114.5 H MCH 38.8 H MCHC 33.9 RDW 15.4 Plt Count 115 L MPV 9.0 L Immature Gran % (Auto) 1.6 H Neut % (Auto) 64.5 Lymph % (Auto) 11.4 L Tucker % (Auto) 19.3 H Eos % (Auto) 2.1 Baso % (Auto) 1.1 Lymph # (Auto) 1.1 L Tucker # (Auto) 1.8 H Eos # (Auto) 0.2 Baso # (Auto) 0.1 Abs Immat Gran (auto) 0.15 H Absolute Neuts (auto) 6.1 Absolute Nucleated RBC 0.000 Nucleated RBC % (auto) 0.0 Smear Tech's Comments VERIFIED Sodium 131 L Potassium 5.2 H Chloride 100 Carbon Dioxide 24 Anion Gap 12 BUN 53 H Creatinine 1.86 H Estim Creat Clear Calc 33.7 Estimated GFR 27 POC Glucose Random Glucose 108 Osmolality Calcium 8.1 L D Magnesium 2.5 Total Bilirubin Direct Bilirubin AST ALT Alkaline Phosphatase Total Protein Albumin COVID-19 (JAS) COVID-19 Clin Com Discharge Plan Discharge Patient Disposition: Xfer Acute Care Hospital Discharge Diagnosis: dinora, liver cirrhosis Referrals: Physician,Unknown [Primary Care Provider] - 1 Week Discharge Medications: Continued lactulose 20 gram/30 mL solution 20 g PO TID 60 Days Qty: 900 RF: 3 multivitamin Tablet 1 tab PO MOWEFR RF: 0 Discharge Orders: Discharge Order (Routine); Ordered 10/22/20 Ordered By: Trent Spencre Activity on Discharge: As tolerated Stand Alone Forms: Patient Portal Discharge page Care Plan Goals: recovery Health Concerns: dinora, cirrhosis Plan of Treatment: transfer to [facility] Assessment: see above
--- NOTE | 2020-10-22 13:31 | CONS_ITS ---
DATE OF SERVICE: 10/22/2020 REASON FOR CONSULTATION: I was called to see this patient to assist in the management of acute kidney injury, hyponatremia, and hyperkalemia. HISTORY OF PRESENT ILLNESS: To summarize, Chiki is a 70-year-old woman with a history of autoimmune hepatitis with cirrhosis of the liver, who has been on high dose of spironolactone 100 mg a day. She has been brought in because of right upper quadrant pain and she was found to have hyperkalemia with hyponatremia and worsening of renal function and hence this consultation. Since admission, spironolactone has been discontinued. There has been minimal improvement in the potassium. PAST MEDICAL HISTORY: Ongoing medical problems include history of autoimmune hepatitis, liver cirrhosis, peptic ulcer disease, history of VA, history of bacteremia, history of breast cancer, colon cancer, thrombocytopenia, and baseline creatinine has been less than 1.0 mg/dL. FAMILY HISTORY: Not significant for this admission. PAST SURGICAL HISTORY: Includes EGD, colonoscopy, and right mastectomy. SOCIAL HISTORY: Lives with her spouse. No history of smoking or alcohol abuse. ALLERGIES: SHE IS ALLERGIC TO SULFA, OMEPRAZOLE, STEROIDS. MEDICATIONS: At the time of admission include furosemide 20 mg, spironolactone 100 mg a day. REVIEW OF SYSTEMS: Positive for right-sided abdominal pain. No headache, nausea, or vomiting. No polyuria or polydipsia. She has leg edema, which has not improved. Generalized weakness. All other systems were reviewed. PHYSICAL EXAMINATION: GENERAL: Chiki is a pleasant, middle-aged woman, who is obese, comfortable, not in any distress. NECK: Supple. HEENT: Mucosa is dry. LUNGS: Air entry equal. HEART: S1 and S2 heard. No gallop. ABDOMEN: Distended, soft. Bowel sounds heard. NEUROLOGIC: Alert and awake. No asterixis. EXTREMITIES: With 2+ edema. No rash. No clubbing. VITAL SIGNS: Blood pressure was 116/55, pulse 98, temperature 97.5. LABORATORY DATA: Sodium 131, potassium 5.2, BUN 53, creatinine 1.86, bilirubin 7.7, ammonia 125, serum albumin 1.8. Hemoglobin 8.3, platelets 115. Urine studies pending. IMPRESSION: 70-year-old woman with cirrhosis of the liver due to autoimmune hepatitis, currently with acute kidney injury, hyponatremia, and hyperkalemia. 1. Hyponatremia is most likely due to hypovolemia due to intravascular depletion. Spironolactone might be playing a role in decreasing the free water clearance. Hyperkalemia is due to the use of spironolactone in the setting of acute kidney injury. The acute kidney injury could be due to hypoperfusion, however, hepatorenal syndrome is a consideration as well. RECOMMENDATIONS: My recommendation would be to obtain a spot urine for sodium, creatinine, osmolality, and serum osmolality. Agree with holding spironolactone. There is no indication for IV hydration at this time. I would cautiously continue with the loop diuretic in view of the significant edema and ascites. The loop diuretic should increase the free water clearance and thereby correct hyponatremia as well. She has significantly low albumin. If she does not respond to the Lasix, then I will consider using IV albumin. Further management as per inside sales advisor, and we will follow her with the team. MD MARY Stephens/MODL / [id number]
--- NOTE | 2020-10-22 14:20 | HO.RADPN ---
RADIOLOGY Narrative Narrative: Left lower quadrant paracentesis performed using 5 Fr catheter. 3.3 L cloudy serosanguinous fluid removed. No diagnostic specimen sent.
[2020-10-22] MEDS: Albumin Human 25 % 50 ML 100 ML IV (14:51)
[2020-10-22] MEDS: Albumin Human 25 % 100 ML IV ×2 (15:24→20:48)
[2020-10-22] MEDS: rifAXIMin 550 MG TABLET PO (20:48)
[2020-10-22] MEDS: cefTRIAXone sodium 1 GM in 0.9 % Sodium Chloride 50 ML IV (22:26)
[2020-10-23] MEDS: Albumin Human 25 % 100 ML IV ×2 (02:47→08:21)
[2020-10-23 03:29] VITALS: BP 118/58; PULSE 81; RESP 18; TEMP 36.2; O2SAT 98
[2020-10-23 06:41] LABS: MANUAL DIFF FLAG NO
[2020-10-23 06:46] LABS: Basophils Absolute Auto 0.1 X10*3/uL (0.0-0.2); Basophils Percent Auto 0.8 % (0-2); Eosinophils Absolute Auto 0.3 X10*3/uL (0.0-0.4); Eosinophils Percent Auto 3.4 % (0-4); Hematocrit 21.6 % (37-47); Hemoglobin 7.2 g/dl (12.0-16.0); Imm Gran Abs Auto 0.07 X10*3/uL (0.00-0.03); Imm Gran Pct Auto 0.9 % (0.0-0.4); Lymphocytes Percent Auto 13.2 % (20-40); Mean Corpuscular HGB Conc 33.3 g/dl (31.0-35.0); Mean Corpuscular Hemoglobin 38.9 pg (27.0-33.0); Mean Platelet Volume 9.1 fL (9.4-12.3); Monocytes Percent Auto 13.9 % (2-11); Neutrophils Percent Auto 67.8 % (45-73); Red Blood Count 1.85 X10*6/uL (4.20-5.50); Red Cell Distribution Width 15.7 % (11.0-16.0); White Blood Count 7.4 X10*3/uL (4.8-10.8)
[2020-10-23 07:04] LABS: INTERNATIONAL NORM RATIO 1.9 (0.9-1.1); Prothrombin Time 23.1 SEC (10.8-13.0)
[2020-10-23 07:05] LABS: Mean Corpuscular Volume 116.8 fL (80-98); Platelet Count 83 X10*3/uL (160-400)
[2020-10-23 07:17] VITALS: BP 149/76; PULSE 80; RESP 18; TEMP 36.4; O2SAT 99
[2020-10-23 08:06] LABS: Alanine Aminotransferase 20 U/L (0-31); Albumin Level 2.8 g/dL (3.5-5.0); Alkaline Phosphatase 110 U/L (39-117); Anion Gap 12 (12-20); Aspartate Amino Transferase 42 U/L (5-31); Bilirubin Direct 3.7 mg/dL (0.0-0.5); Bilirubin Total 7.7 mg/dL (0.0-1.0); Blood Urea Nitrogen 48 mg/dL (9-16); Calcium 8.6 mg/dL (8.4-10.2); Carbon Dioxide 26 mmol/L (22-29); Chloride 102 mmol/L (96-108); Creatinine Clr Calc Pharmacy 41.6; Estimated Glomerular Filt Rate 34; Glucose Fasting 93 mg/dL (60-99); Potassium 4.5 mmol/L (3.3-5.1); Sodium 135 mmol/L (135-145); Total Protein 5.7 g/dL (6.5-8.0)
[2020-10-23] MEDS: Lactulose 20 GM/30 ML SOLUTION PO (09:40)
[2020-10-23] MEDS: rifAXIMin 550 MG TABLET PO (09:40)
[2020-10-23] MEDS: 0.9 % Sodium Chloride Flush 3 ML SYRINGE IVFLUSH (09:40)
--- NOTE | 2020-10-23 10:08 | P.PNNP_ITS ---
Subjective Subjective Date of Service: 10/23/20 Interval history: Events noted Physical Exam Vital Signs: Vital Signs: Last Vital Signs Temp 97.6 F 10/23/20 07:17 Pulse 80 10/23/20 07:17 Resp 18 10/23/20 07:17 BP 149/76 H 10/23/20 07:17 Pulse Ox 99 10/23/20 07:17 Body Mass Index 37.4 Const: General: ill appearing Cardio: Heart sounds: no murmurs GI: Palpation (GI): Ascites present Auscultation: normal bowel sounds Neuro: Motor exam (neuro): No Asterixis during motor activity present Objective Data Labs CBC & Chem 7: 10/23/20 05:36 10/23/20 05:36 Labs: Laboratory Results - last 24 hr 10/23/20 10/23/20 10/23/20 05:36 05:36 05:36 WBC 7.4 RBC 1.85 L Hgb 7.2 L Hct 21.6 L MCV 116.8 H MCH 38.9 H MCHC 33.3 RDW 15.7 Plt Count 83 L D MPV 9.1 L Immature Gran % (Auto) 0.9 H Neut % (Auto) 67.8 Lymph % (Auto) 13.2 L [place] % (Auto) 13.9 H Eos % (Auto) 3.4 Baso % (Auto) 0.8 Lymph # (Auto) 1.0 L [place] # (Auto) 1.0 Eos # (Auto) 0.3 Baso # (Auto) 0.1 Abs Immat Gran (auto) 0.07 H Absolute Neuts (auto) 5.0 Absolute Nucleated RBC 0.000 Nucleated RBC % (auto) 0.0 PT 23.1 H INR 1.9 H Sodium 135 Potassium 4.5 Chloride 102 Carbon Dioxide 26 Anion Gap 12 BUN 48 H Creatinine 1.51 H Estim Creat Clear Calc 41.6 Estimated GFR 34 Fasting Glucose 93 Calcium 8.6 D Total Bilirubin 7.7 H Direct Bilirubin 3.7 H AST 42 H ALT 20 Alkaline Phosphatase 110 D Total Protein 5.7 L Albumin 2.8 L D Assessment & Plan Assessment and plan (1) Acute renal failure superimposed on chronic kidney disease: Problem details: Renal function is gradually improving Status: Acute (2) Acute hyperkalemia: Status: Acute Assessment and Plan: K is corrected Mild hyponatremia- resolved Hold ALdactone for now Restrict PO water intake Await transfer to [facility] Time Spent With Patient Time: Total time spent is greater than 50% in coordination of care (as documented) at patient's floor/unit and/or counseling patient:
[2020-10-23 11:06] VITALS: BP 120/57; PULSE 94; RESP 19; TEMP 36.6; O2SAT 97
--- NOTE | 2020-10-23 12:17 | P.DS_ITS ---
DS: Providers Provider Date of Service: 10/23/20 Date of admission: 10/21/20 20:52 Primary care physician: Unknown Physician Consults: 10/21/20 20:52 Consult to Gastroenterology Routine Consulting Provider: Ozzie Zimmerman Reason for consultation: Cirrhosis/Hypermmonemia Consult to Nephrology Routine Consulting Provider: James Stout Reason for consultation: Hyponatremia/Hyperkalemia/DINORA DS: Diagnosis Discharge Diagnosis (1) Acute renal failure superimposed on chronic kidney disease: Status: Acute Problem details: Renal function is gradually improving (2) Acute hyperkalemia: Status: Acute (3) Chronic hepatic failure: Status: Acute DS: Medications Discharge Medications Home Medications: Home Medications Medication Instructions Recorded Confirmed multivitamin 1 tab PO MOWEFR 10/21/20 10/21/20 Previous Rx's Medication Instructions Recorded lactulose 20 gram/30 mL oral 20 g PO TID 60 Days #900 ml 10/09/20 solution rifaximin [Xifaxan] 550 mg PO BID #0 tab 10/23/20 DS: Summary Hospital Course Hospital Course: patient was admitted for DINORA and hyperkalemia in the setting of advancing liver cirrhosis thought to be autoimmune/MARTEL. her diuretics and aldactone were held, she was given kayexylate, potassium improved to 4.5, creatinine improved from 2.03 to 1.52. tbili 7.7, inr 1.9, sodium improved from 129 to 135. patient had 3L paracentesis for symptomatic ascites. she was given albumin. she was mildly encephalopathic, given lactulose and rifaximin and this has improved. discuss ion was had with patient's liver transplant dr, dr Phipps at [facility], and initially decision made to transfer for further care, however, as symptoms and labs improved, it was decided to discharge patient home with close follow up with Dr. Phipps. she will continue to hold her lasix and aldactone (faster accumulation of ascites is expected) and continue lactulose and rifaximin for encephalopathy. Time Spent with Patient Time attestation: Total time spent providing and/or coordinating discharge services: Discharge coordination time: Greater than 30 minutes Quality: Stroke Does the patient have a stroke diagnosis?: No Physical Exam Vital Signs: Vital Signs: Last Vital Signs Temp 97.9 F 10/23/20 11:06 Pulse 94 10/23/20 11:06 Resp 19 10/23/20 11:06 BP 120/57 L 10/23/20 11:06 Pulse Ox 97 10/23/20 11:06 Body Mass Index 37.4 General: more alert oriented times 3, juandiced, Resp: CTA bilateral CVS: S1,S2,RRR GI: soft, non tender, distended Neuro: mild asterixis Psych: appropriate affect DS: Data Data Completed and Pending Completed studies during hospitalization [Text1]: Procedures Drainage of Peritoneal Cavity, Percutaneous Approach (09/22/20) Excision of Stomach, Pylorus, Via Natural or Artificial Opening Endoscopic, Diagnostic (06/28/20) Inspection of Lower Intestinal Tract, Via Natural or Artificial Opening Endoscopic (06/28/20) Labs on day of discharge: Laboratory Results - last 24 hr 10/23/20 10/23/20 10/23/20 05:36 05:36 05:36 WBC 7.4 RBC 1.85 L Hgb 7.2 L Hct 21.6 L MCV 116.8 H MCH 38.9 H MCHC 33.3 RDW 15.7 Plt Count 83 L D MPV 9.1 L Immature Gran % (Auto) 0.9 H Neut % (Auto) 67.8 Lymph % (Auto) 13.2 L [place] % (Auto) 13.9 H Eos % (Auto) 3.4 Baso % (Auto) 0.8 Lymph # (Auto) 1.0 L [place] # (Auto) 1.0 Eos # (Auto) 0.3 Baso # (Auto) 0.1 Abs Immat Gran (auto) 0.07 H Absolute Neuts (auto) 5.0 Absolute Nucleated RBC 0.000 Nucleated RBC % (auto) 0.0 PT 23.1 H INR 1.9 H Sodium 135 Potassium 4.5 Chloride 102 Carbon Dioxide 26 Anion Gap 12 BUN 48 H Creatinine 1.51 H Estim Creat Clear Calc 41.6 Estimated GFR 34 Fasting Glucose 93 Calcium 8.6 D Total Bilirubin 7.7 H Direct Bilirubin 3.7 H AST 42 H ALT 20 Alkaline Phosphatase 110 D Total Protein 5.7 L Albumin 2.8 L D Discharge Plan Discharge Patient Disposition: Home, Self-Care Discharge Diagnosis: dinora, liver cirrhosis Referrals: [facility] [Other] - 1 Week Physician,Unknown [Primary Care Provider] - 1 Week Discharge Medications: New Xifaxan 550 mg Tablet 550 mg PO BID Qty: 0 RF: 0 Continued lactulose 20 gram/30 mL solution 20 g PO TID 60 Days Qty: 900 RF: 3 multivitamin Tablet 1 tab PO MOWEFR RF: 0 Discharge Orders: Discharge Order (Routine); Ordered 10/23/20 Ordered By: Trent Spencer Activity on Discharge: As tolerated Stand Alone Forms: Patient Portal Discharge page Care Plan Goals: recovery Health Concerns: dinora, cirrhosis Plan of Treatment: follow up closely with dr phipps at [facility], stop aldactone and lasix, monitor ascites accumulation, conitnue lactulose and rifaximin Assessment: see above
--- NOTE | 2020-10-23 12:30 | MHC.CM.PN ---
Patient has been medically cleared for dc to home today and resume RN services with [facility] ([facility] notified via [place] text of today's dc). Last IMM addressed on 10/22/20.
[2020-10-23 14:31] LABS: Glucose Urine UA NEG (NEG); Leukocyte Esterase Urine NEG (NEG); Nitrite Urine NEG (NEG); PH 5.5 (5.0-8.0); Specific Gravity - Urine 1.025 (1.005-1.025); Urine Blood 2+ (NEG); Urine Ketones NEG (NEG); Urine Protein NEG (NEG-TRACE)
[2020-10-23 14:33] LABS: Appearance Urine HAZY; Color Urine YELLOW
[2020-10-23 14:48] LABS: Potassium Urine Random 43.8 mmol/L; Sodium Urine Random < 20.0 mmol/L
[2020-10-23 14:51] LABS: Bacteria Urine 1+ /LPF; Squamous Epithelial Cell Urine 2+ /LPF; WBC Urine 0-2 /HPF (0-4)
[2020-10-23 14:52] LABS: Hyaline Casts Urine 0-2 /LPF
[2020-10-23 15:16] LABS: Osmolality Urine 498 mosm/kg (373-1093)
[2020-10-23 15:29] VITALS: BP 129/61; PULSE 93; RESP 18; TEMP 36.7; O2SAT 98
[2020-10-23 17:59] LABS: Chloride Urine Random < 20.0 mmol/L
== END 2020-10-23 17:45 | disposition home health service (06) | DRG 640 ==
LOC: HO.ED 20:24 → HO.EDOVER 21:04 → HO.IMC 22:20
PROVIDERS: Internal Medicine Gastroenterology; Admitting Provider Hospitalist; Emergency Provider Internal Medicine; Visit Provider Internal Medicine
DX: E87.5 Hyperkalemia (principal); N17.0 Acute kidney failure with tubular necrosis; R18.8 Other ascites; E87.1 Hypo-osmolality and hyponatremia; N18.2 Chronic kidney disease, stage 2 (mild); K72.10 Chronic hepatic failure without coma; K75.81 Nonalcoholic steatohepatitis (NASH); Z20.822 Contact with and (suspected) exposure to COVID-19; K74.60 Unspecified cirrhosis of liver; Z88.2 Allergy status to sulfonamides; Z79.01 Long term (current) use of anticoagulants; Z79.899 Other long term (current) drug therapy
CPT/HCPCS: 36415; 49083; 76705; 80048; 80053; 80076; 81001; 82140; 82436; 82947; 83735; 83930; 83935; 84133; 84300; 85025; 85610; 87635; 93005; 96365; 96366; 96375; 99285; J0610; J0696; P9047

== ENCOUNTER → 2024-02-09 13:37 | Outpatient (RCR) | payer MEDICARE, OTHER, SELFPAY ==
[2020-04-08 14:16] VITALS: BP 148/64; PULSE 83; RESP 18; TEMP 36.7; O2SAT 99
[2020-04-08 14:19] VITALS: BMI 35.4
--- NOTE | 2020-04-08 14:28 | P.PNHO_ITS ---
Medical Summary - Medical Summary Chief complaint: FOLLOW-UP FOR: 1. RIGHT BREAST CANCER. 2. SIGMOID COLON CANCER. Medical Summary: DIAGNOSIS: 1. Breast cancer, right breast. 2. Cancer of sigmoid colon. Interval History Interval history: This is a pleasant 69-year-old lady, here for a follow-up visit. She tells me she has not been doing too well. She was admitted to the hospital back in mid December. With history of fever, and altered mentation, weakness and lethargy on my exam of the patient she is alert oriented x3. She reports that she was sleeping and when she was woken by her she was slightly confused but is now fully aware of her surroundings and why she is in the hospital. She reported having chills for about a week as well as frequency, urinary urgency with no dysuria. Reported decreased urine output despite being on lasix. She denied having any cough or sputum production. She denies having any chest pain. She reports she has been constipated. She also complains of swelling in her leg although denies having any shortness of breath. On exam, patient did appear to be short of breath on talking but when asked multiple times about shortness of breath she denied. Denied orthopnea and PND. She reported that she takes Lasix for her lower extremity swelling and denies having history of heart failure. On arrival to the ED patient had a fever of 101.7 other vitals significant for heart rate of 106. Labs significant for lactic acid of 2.3, WBC count of 15.3, hemoglobin of 10, total bili of 4.1, direct bili of 2.1, AST of 118, ALT of 47, alk-phos of 118, LDH of 325, tropes of 323, C-reactive protein of 3.4, BNP of 380. COURSE: This patient immunocompromised with MARTEL presented with fever, confusion. work up revealed: MRSA bactereamia of unclear source. Echo shows no vegetation, MRI of back new no abscess or diskitis. ID recommend IV Vanco for total 4 weeks. Repeat blood cultures negative. She went home with home infusion for Vancomycin. She mentions that she has been anemic over the past couple of months. on 02/19 hemoglobin was 9.8 / HCT 29.8. MCV 109.6. PLT 92. On 03/17: HGB 9.9 HCT 30 PLT 104. After going home, initially she could not even walk. She now feels better. 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 She denies any breast related complaints. However, she has chronic lymphedema of her hand. She has no chest pain nor trouble breathing. She denies any abdominal pain nor right upper quadrant pain. She gets occasional nausea after eating, but no vomiting. Her bowels are moving without any gross blood in it. She has not had a good appetite. She lost some weight. She has changed her diet, she does not like meat. She is mostly eating a vegetarian diet. No easy bruising nor systemic bleeding. She is in good spirits. Rest of the review of systems is unremarkable. In view of her diagnoses she is staying home, with her . Review of Systems - Constitutional Reports system reviewed and no additional complaints, except as documented, Reports fatigue, Reports poor appetite, Denies fever(s) - Eyes Reports system reviewed and no additional complaints, except as documented - ENT Reports system reviewed and no additional complaints, except as documented - Cardiovascular Reports system reviewed and no additional complaints, except as documented - Respiratory Reports no additional respiratory complaints - Gastrointestinal Reports system reviewed and no additional complaints, except as documented, Reports nausea, Denies loose stools - Genitourinary Reports no additional female genitourinary complaints - Neurologic Reports system reviewed and no additional complaints, except as documented, Reports weakness - Psychiatric Reports system reviewed and no additional complaints, except as documented - Endocrine Reports no additional endocrine complaints - Allergic/Immunologic Reports system reviewed and no additional complaints, except as documented Home Medications and Allergies Allergies Allergy/AdvReac Type Severity Reaction Status Date / Time Sulfa (Sulfonamide Allergy Unknown UNKNOWN Unverified 02/28/20 19:06 Antibiotics) [SULFA (SULFONAMIDE ANTIBIOTICS)] Omeprazole Allergy Unknown Coughing Uncoded 01/30/20 00:00 steroids Allergy Unknown hallucinations, Uncoded 01/30/20 00:00 mouth sores STEROIDS AdvReac Severe HALLUCINATI Uncoded 02/28/20 19:06 ONS/NAUSEA/ DIZZINESS Certain chemo medication AdvReac Unknown Hospitalize Uncoded 01/24/20 00:00 d Exam Vital signs: Vital Signs Temp 98.1 F 04/08/20 14:16 Pulse 83 04/08/20 14:16 Resp 18 10/27/20 14:16 BP 148/64 H 10/27/20 14:16 Pulse Ox 99 04/08/20 14:16 Intake & Output 04/07/20 04/08/20 04/08/20 18:59 06:59 18:59 Other: Weight 99.6 kg Weight 99.6 kg Body Mass Index 35.4 - Constitutional Present: no acute distress - Routine HEENT Exam Head: Present: normal inspection ENT: Present: mucous membranes moist - Routine Neck Exam Present: full ROM - Routine Respiratory Exam Present: CTAB - Routine Cardiovascular Exam Cardiovascular: Present: RRR, S1, S2 - Routine Abdominal Exam Present: soft, nontender - Routine Rectal Exam Patient deferred: digital exam - Routine Extremities Exam Present: nontender - Routine Neurological Exam Present: alert, oriented X3, vision grossly intact. Absent: asterixis - Routine Psychiatric Exam Present: normal affect Data - Labs CBC & Chem 7: 04/08/20 15:16 04/08/20 15:16 Progress Note: A/P (1) Breast cancer, left Status: Acute Assessment and plan: This is a pleasant 69 year-old lady, with a history of: 1. Cancer of sigmoid Colon. Sigmoid Colonic Carcinoma diagnosed in December of 2013. T1, N0, M0. Status post hemicolectomy. No adjuvant therapy needed. 2. Breast Cancer, right Breast. Triple-negative Breast Carcinoma diagnosed November of 2013. She had mastectomy. Had one course of TC on 02/19/2014. She declined further therapy on account of toxicity. Vitamin D level came back really low at 10, [place] [address] units [place] x8. Will now take the daily 2000 micro g dose. She had a PET scan done back in December,, which revealed: No abnormalities suspicious for recurrent or metastatic malignancy are note d. She had some GI symptoms. Ultrasound of the abdomen reveals hydropic gallbladder, with concern for cystic duct obstruction. She had a HIDA scan on April 12 which revealed: Normal biliary scan. Visualization of the gallbladder is evidence of a patent cystic duct and strong evidence against the diagnosis of acute cholecystitis. The common bile duct is patent. Liver function appears normal. She had a repeat ultrasound in December 13 which revealed: GALLBLADDER: The gallbladder is physiologically distended. Multiple mobile gallstones are present. No evidence of gallbladder wall thickening or pericholecystic fluid. COMMON BILE DUCT: Normal in caliber measuring 0.4 cm in diameter. Echogenic liver consistent with hepatic parenchymal disease. Tiny cyst head of pancreas. Follow-up is recommended. Small number of perisplenic varices. I had referred her for occupational therapy for her right upper extremity lymphedema. She was treated under the care of Gege Guevara. I also advised her to try Sigvera's stockings. She had a mammogram March 01 2019, which was benign. She also had a bone density, March 01, which was normal. She had a colonoscopy for surveillance, in November 2016 which was negative. Upper endoscopy done at the same time was benign as well. 3. She was recently noted to be rather Anemic. This is likely multifactorial: Related to underlying liver disease and cirrhosis, with super added infection: MRSA bacteremia, leading to anemia of chronic disease. A hemolytic anemia is in the differential. PLAN: I will proceed with anemia workup. Check a hemolytic screen: LDH 272. Checked iron studies to look for ACD: 228/less than 245/ ferritin 423. EPO level 36.4. Can consider Procrit therapy if the blood count does not come up appropriately. She is due for her mammogram now. She was advised to indulge in healthy lifestyle, nutritious diet and exercise program. She will return in 3 months for a followup visit. Thank you, CC: Fernando Lau. Dr. Lurdes Isaac. Copies To: FERNANDO LAU NP; ANNA MEDELLIN MD Quality Measures Smoking Smoking Status: NEVER SMOKER BMI: Norm 18.5-25; >64yr=23-30 BMI 36.0 BMI in Normal range? No BMI Follow-Up Plan Referred to PCP Diagnosis Diagnosis Colon Cancer, Breast Cancer Colon Cancer Primary Tumor (T) T1 Regional Lymph Node (N) N0 Distant Metastasis (M) M0 Reason no Adjuvant Therapy Treatment not Indicated Breast Cancer Primary Tumor (T) T2 Clin Regional Lymph Node (N) N0 Path Regional Lymph Node (pN) pN0 (i-) Distant Metastasis (M) M0 ER or [place] Positive HR- (triple negative) - Time Spent With Patient Total time spent is greater than 50% in coordination of care (as documented) at patient's floor/unit and/or counseling patient: 25 - 35 minutes
[2020-04-08 15:52] LABS: IG%MD 0.3 %; Mono%MD 9.7 %; PLT CLUMP 1
[2020-04-08 15:54] LABS: Baso%MD 1.2 %; Eos%MD 5.1 %; Hematocrit 29.6 % (37-47); Immature Retic Fraction 17.4 % (3.0-15.9); Lymph%MD 28.3 %; Mean Corpuscular HGB Conc 33.8 g/dl (31.0-35.0); Mean Corpuscular Hemoglobin 36.9 pg (27.0-33.0); Mean Corpuscular Volume 109.2 fL (80-98); Mean Platelet Volume 10.9 fL (9.4-12.3); Neut%MD 55.4 %; Red Blood Count 2.71 X10*6/uL (4.20-5.50); Red Cell Distribution Width 15.3 % (11.0-16.0); Retic HGB Equivalent 38.9 pg (30.0-35.0); Reticulocyte Percent 4.6 % (0.5-1.8); Reticulocytes Absolute 0.124 X10*6/uL (0.026-0.095); White Blood Count 5.9 X10*3/uL (4.8-10.8)
[2020-04-08 15:55] LABS: Platelet Count 101 X10*3/uL (160-400)
[2020-04-08 16:13] LABS: Alanine Aminotransferase 39 U/L (0-31); Albumin Level 2.3 g/dL (3.5-5.0); Alkaline Phosphatase 189 U/L (39-117); Anion Gap 10 (12-20); Aspartate Amino Transferase 89 U/L (5-31); Bilirubin Total 4.7 mg/dL (0.0-1.0); Blood Urea Nitrogen 12 mg/dL (9-16); Calcium 7.8 mg/dL (8.4-10.2); Carbon Dioxide 24 mmol/L (22-29); Chloride 109 mmol/L (96-108); Estimated Glomerular Filt Rate > 60; Glucose Random 108 mg/dL (60-115); Potassium 4.2 mmol/l (3.3-5.1); Sodium 139 mmol/L (135-145); Total Protein 6.1 g/dL (6.5-8.0)
[2020-04-08 16:20] LABS: Basophils Abs Manual 0.2 X10*3/uL (0.0-0.3); Basophils Percent Manual 3 % (0-1); Eosinophils Absolute Manual 0.3 X10*3/UL (0.0-0.8); Eosinophils Percent Manual 5 % (0-4); Lymphocytes Absolute Manual 1.1 X10*3/uL (0.6-4.8); Lymphocytes Percent Manual 19 % (20-40); Metamyelocytes Absolute 0.1 X10*3/uL; Metamyelocytes Percent 2 %; Monocytes Absolute Manual 0.4 X10*3/uL (0.0-1.2); Monocytes Percent Manual 7 % (2-11); Neutrophils Percent Manual 64 % (45-73)
[2020-04-08 16:21] LABS: Band Neutrophils Percent 0 % (3-5); Macrocytosis 3+; Microcytosis 1+; Neutrophils Absolute Manual 3.8 X10*3/uL (2.2-7.9); Ovalocytes 1+; Platelet Estimate DECREASED (NORMAL); Platelet Morphology Comment NORMAL; Polychromasia 1+; RBC Morphology NOTED
[2020-04-08 16:22] LABS: Iron 228 mcg/dL (30-160); Lactate Dehydrogenase 272 U/L (122-220); Total Iron Binding Capacity < 245 mcg/dL (228-428); Unsaturated Iron Binding < 17 ug/dL
[2020-04-08 16:42] LABS: Ferritin 423 ng/mL (10-250)
[2020-04-10 02:22] LABS: Erythropoietin (EPO) 36.4 mIU/mL (2.6-18.5)
[2020-04-11 16:41] LABS: Haptoglobin <8 mg/dL (43-212)
[2020-07-10 13:24] LABS: MANUAL DIFF FLAG NO
[2020-07-10 13:25] VITALS: BP 143/64; PULSE 95; RESP 18; TEMP 37; O2SAT 97; BMI 37.5
[2020-07-10 13:28] LABS: Basophils Absolute Auto 0.1 X10*3/uL (0.0-0.2); Basophils Percent Auto 0.9 % (0-2); Eosinophils Absolute Auto 0.2 X10*3/uL (0.0-0.4); Eosinophils Percent Auto 2.2 % (0-4); Hematocrit 28.7 % (37-47); Hemoglobin 9.4 g/dl (12.0-16.0); Imm Gran Abs Auto 0.05 X10*3/uL (0.00-0.03); Imm Gran Pct Auto 0.7 % (0.0-0.4); Lymphocytes Absolute Auto 1.9 X10*3/uL (1.2-4.9); Lymphocytes Percent Auto 24.7 % (20-40); Mean Corpuscular HGB Conc 32.8 g/dl (31.0-35.0); Mean Corpuscular Hemoglobin 36.2 pg (27.0-33.0); Mean Platelet Volume 10.1 fL (9.4-12.3); Monocytes Absolute Auto 1.3 X10*3/uL (0.1-1.2); Monocytes Percent Auto 17.1 % (2-11); Neutrophils Absolute Auto 4.2 X10*3/uL (2.0-8.3); Neutrophils Percent Auto 54.4 % (45-73); Red Cell Distribution Width 15.8 % (11.0-16.0); White Blood Count 7.6 X10*3/uL (4.8-10.8)
[2020-07-10 13:33] LABS: Mean Corpuscular Volume 110.4 fL (80-98); Platelet Count 97 X10*3/uL (160-400)
[2020-07-10 13:56] LABS: Alanine Aminotransferase 29 U/L (0-31); Albumin Level 2.5 g/dL (3.5-5.0); Alkaline Phosphatase 137 U/L (39-117); Anion Gap 9 (12-20); Aspartate Amino Transferase 68 U/L (5-31); Bilirubin Total 7.4 mg/dL (0.0-1.0); Blood Urea Nitrogen 15 mg/dL (9-16); Calcium 8.2 mg/dL (8.4-10.2); Carbon Dioxide 27 mmol/L (22-29); Chloride 107 mmol/L (96-108); Creatinine Clr Calc Pharmacy 71.7; Estimated Glomerular Filt Rate > 60; Glucose Fasting 115 mg/dL (60-99); Potassium 4.2 mmol/l (3.3-5.1); Sodium 139 mmol/L (135-145); Total Protein 6.3 g/dL (6.5-8.0)
--- NOTE | 2020-07-10 14:09 | PM.HEMONCPN ---
Medical Summary - Medical Summary Date of Service: 07/10/20 Chief complaint: F/U for Breast Cancer. Colon Cancer. Liver cirrhosis. Medical Summary: DIAGNOSIS: 1. Breast cancer, right breast. 2. Cancer of sigmoid colon. 3. Cirrhosis of Liver. . Interval History Interval history: This is a pleasant 69-year-old lady, here for a follow-up visit. She tells me she has not been doing too well. She was admitted to the hospital back in mid June. Patient presented to the hospital because of ascites/edema and shortness of breath. She was started on IV diuretics. Shortness of breath seems improved. A paracentesis was tried but there was not enough fluid to drain. Seen by GI: Dr. Zimmerman: Patient was diuresed well and symptomatic seemed better. She was sent home on Lasix and spironolactone, in addition to the lactulose. Upper endoscopy: Stomach: Moderate diffuse portal gastropathy with a few small old clots in the stomach. A few 2-3 mm antral erosions - biopsies were obtained. Grade 2 flap valve and no gastric varices noted on retroflexed examination of the cardia. Duodenum: Normal bulb and descending duodenum Biopsies: Corpus mucosa with lamina propria edema and mild chronic inactive gastritis. Negative for intestinal metaplasia, dysplasia and carcinoma. H pylori I: negative. Colonoscopy: Cecum: Normal Ascending Colon: Normal Transverse Colon: Normal Descending Colon: Normal Sigmoid Colon: Moderate diverticulosis Rectum: Normal Ano-rectum: Normal Colon preparation: Good after copious irrigation She feels extremely fatigued. She has had edema in her feet. She denies any breast related complaints. However, she has chronic lymphedema of her hand. She has no chest pain nor trouble breathing. She denies any abdominal pain nor right upper quadrant pain. She gets occasional nausea after eating, but no vomiting. Her bowels are moving without any gross blood in it. She has not had a good appetite. She lost some weight. She has changed her diet, she does not like meat. She is mostly eating a vegetarian diet. No easy bruising nor systemic bleeding. She is in good spirits. Rest of the review of systems is unremarkable. In view of her diagnoses she is staying home, with her . Previous history: She was admitted back in mid December: With history of fever, and altered mentation, weakness and lethargy on my exam of the patient she is alert oriented x3. She reports that she was sleeping and when she was woken by her she was slightly confused but is now fully aware of her surroundings and why she is in the hospital. She reported having chills for about a week as well as frequency, urinary urgency with no dysuria. Reported decreased urine output despite being on lasix. She denied having any cough or sputum production. She denies having any chest pain. She reports she has been constipated. She also complains of swelling in her leg although denies having any shortness of breath. On exam, patient did appear to be short of breath on talking but when asked multiple times about shortness of breath she denied. Denied orthopnea and PND. She reported that she takes Lasix for her lower extremity swelling and denies having history of heart failure. On arrival to the ED patient had a fever of 101.7 other vitals significant for heart rate of 106. Labs significant for lactic acid of 2.3, WBC count of 15.3, hemoglobin of 10, total bili of 4.1, direct bili of 2.1, AST of 118, ALT of 47, alk-phos of 118, LDH of 325, tropes of 323, C-reactive protein of 3.4, BNP of 380. COURSE: This patient immunocompromised with MARTEL presented with fever, confusion. work up revealed: MRSA bactereamia of unclear source. Echo shows no vegetation, MRI of back new no abscess or diskitis. ID recommend IV Vanco for total 4 weeks. Repeat blood cultures negative. She went home with home infusion for Vancomycin. She mentions that she has been anemic over the past couple of months. on 02/19 hemoglobin was 9.8 / HCT 29.8. MCV 109.6. PLT 92. On 03/17: HGB 9.9 HCT 30 PLT 104. After going home, initially she could not even walk. 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 . Review of Systems - Constitutional Reports no additional constitutional complaints, Reports fatigue, Denies fever(s), Reports lack of energy, Reports malaise, Reports poor appetite - Eyes Reports no additional eye complaints - ENT Reports no additional ear, nose, mouth, and throat complaints - Cardiovascular Reports no additional cardiovascular complaints - Respiratory Reports no additional respiratory complaints - Gastrointestinal Reports no additional gastrointestinal complaints - Genitourinary Reports no additional female genitourinary complaints - Musculoskeletal Reports no additional musculoskeletal complaints - Integumentary/Breasts Skin/Breast: Reports no additional skin complaints - Neurologic Reports no additional neurologic complaints, Reports weakness - Psychiatric Reports no additional psychiatric complaints - Endocrine Reports no additional endocrine complaints - Hematologic/Lymphatic Reports no additional hematologic/lymphatic complaints - Allergic/Immunologic Reports no additional allergic/immunologic complaints [facility] Medical History: Medical History (Last Reviewed 07/01/20 @ 09:35 by Sera Betts) Cirrhosis of liver Functional capacity: independent ambulation Patient : No Family History: Family History (Last Updated 07/10/20 @ 10:17 by MELO Mcnally) Father Hx of diabetes mellitus Mother History of renal pelvis cancer Brother Hx of diabetes mellitus Sister No problems noted. Son No problems noted. Daughter No problems noted. Surgical History: Surgical History (Last Updated 07/10/20 @ 10:20 by MELO Mcnally) History of esophagogastroduodenoscopy (EGD) Hx of colonoscopy Hx of right mastectomy Social History: Social History (Last Updated 07/10/20 @ 10:18 by MELO Mcnally) Living Situation History: Household Members: Spouse Housing: House Alcohol History: Alcohol intake: never Tobacco History: Second Hand Smoke Exposure: No Occupation Assessmet: service: No Current occupational status: retired Home Medications and Allergies Home Medications Medication Instructions Recorded Confirmed Type cholecalciferol (vitamin D3) 25 25 mcg PO DAILY 06/26/20 07/10/20 History mcg (1,000 unit) tablet mecobalamin (vitamin B12) 1,000 1,000 mcg PO DAILY 06/26/20 07/10/20 History mcg chewable tablet multivitamin 1 tab PO DAILY 06/26/20 07/10/20 History furosemide 1 tab PO BID 06/28/20 07/10/20 History Allergies Allergy/AdvReac Type Severity Reaction Status Date / Time Sulfa (Sulfonamide Allergy Intermediate Itching Verified 07/10/20 10:15 Antibiotics) [SULFA (SULFONAMIDE ANTIBIOTICS)] Omeprazole Allergy Unknown Coughing Uncoded 07/10/20 10:15 steroids Allergy Unknown hallucinations, Uncoded 07/10/20 10:15 mouth sores STEROIDS AdvReac Severe HALLUCINATI Uncoded 07/10/20 10:15 ONS/NAUSEA/ DIZZINESS Certain chemo medication AdvReac Unknown Hospitalize Uncoded 07/10/20 10:15 d Exam Vital signs: Vital Signs Temp 98.6 F 07/10/20 13:25 Pulse 95 07/10/20 13:25 Resp 18 07/10/20 13:25 BP 143/64 H 07/10/20 13:25 Pulse Ox 97 07/10/20 13:25 Intake & Output 07/09/20 07/10/20 07/10/20 18:59 06:59 18:59 Other: Weight 105.6 kg Weight 105.6 kg Body Mass Index 37.5 - Constitutional Present: no acute distress - Routine HEENT Exam Head: Present: normal inspection Eye: Present: normal appearance ENT: Present: mucous membranes moist - Routine Neck Exam Present: full ROM - Routine Respiratory Exam Present: CTAB - Routine Cardiovascular Exam Cardiovascular: Present: RRR, S1, S2 - Routine Abdominal Exam Present: soft, nontender - Routine Rectal Exam Patient deferred: digital exam - Routine Extremities Exam Present: nontender - Routine Back/Spine/Pelvis Exam Back/Spine: Present: full ROM - Routine Skin Exam Present: intact - Routine Neurological Exam Present: alert, oriented X3, vision grossly intact. Absent: asterixis - Routine Psychiatric Exam Present: normal affect Data - Labs CBC & Chem 7: 07/10/20 13:20 07/10/20 13:20 Labs: 04/08/20 15:15 Ferritin Routine IRON PROFILE Routine Lactate Dehydrogenase Routine 04/08/20 15:16 CMP [Comprehensive Met. Panel] Routine Complete Blood Count Man Dif Routine Erythropoietin (EPO) Routine Haptoglobin Routine Reticulocyte Count Routine Laboratory Last Values WBC 7.6 X10*3/uL (4.8-10.8) 07/10/20 13:20 RBC 2.60 X10*6/uL (4.20-5.50) L 07/10/20 13:20 Hgb 9.4 g/dl (12.0-16.0) L 07/10/20 13:20 Hct 28.7 % (37-47) L 07/10/20 13:20 MCV 110.4 fL (80-98) H 07/10/20 13:20 MCH 36.2 pg (27.0-33.0) H 07/10/20 13:20 MCHC 32.8 g/dl (31.0-35.0) 07/10/20 13:20 RDW 15.8 % (11.0-16.0) 07/10/20 13:20 Plt Count 97 X10*3/uL (160-400) L 07/10/20 13:20 MPV 10.1 fL (9.4-12.3) 07/10/20 13:20 Immature Gran % (Auto) 0.7 % (0.0-0.4) H 07/10/20 13:20 Neut % (Auto) 54.4 % (45-73) 07/10/20 13:20 Lymph % (Auto) 24.7 % (20-40) 07/10/20 13:20 Harding % (Auto) 17.1 % (2-11) H 07/10/20 13:20 Eos % (Auto) 2.2 % (0-4) 07/10/20 13:20 Baso % (Auto) 0.9 % (0-2) 07/10/20 13:20 Lymph # (Auto) 1.9 X10*3/uL (1.2-4.9) 07/10/20 13:20 Harding # (Auto) 1.3 X10*3/uL (0.1-1.2) H 07/10/20 13:20 Eos # (Auto) 0.2 X10*3/uL (0.0-0.4) 07/10/20 13:20 Baso # (Auto) 0.1 X10*3/uL (0.0-0.2) 07/10/20 13:20 Abs Immat Gran (auto) 0.05 X10*3/uL (0.00-0.03) H 07/10/20 13:20 Absolute Neuts (auto) 4.2 X10*3/uL (2.0-8.3) 07/10/20 13:20 Absolute Nucleated RBC 0.000 X10*3/uL (0.0-0.012) 07/10/20 13:20 Nucleated RBC % (auto) 0.0 /100WBC (0.0-0.2) 07/10/20 13:20 Neutrophils % (Manual) 64 % (45-73) 04/08/20 15:16 Band Neutrophils % 0 % (3-5) L 04/08/20 15:16 Lymphocytes % (Manual) 19 % (20-40) L 04/08/20 15:16 Monocytes % (Manual) 7 % (2-11) 04/08/20 15:16 Eosinophils % (Manual) 5 % (0-4) H 04/08/20 15:16 Basophils % (Manual) 3 % (0-1) H 04/08/20 15:16 Metamyelocytes % 2 % 04/08/20 15:16 Abs Neuts (Manual) 3.8 X10*3/uL (2.2-7.9) 04/08/20 15:16 Lymphocytes # (Manual) 1.1 X10*3/uL (0.6-4.8) 04/08/20 15:16 Monocytes # (Manual) 0.4 X10*3/uL (0.0-1.2) 04/08/20 15:16 Eosinophils # (Manual) 0.3 X10*3/UL (0.0-0.8) 04/08/20 15:16 Basophils # (Manual) 0.2 X10*3/uL (0.0-0.3) 04/08/20 15:16 Metamyelocytes # 0.1 X10*3/uL 04/08/20 15:16 Platelet Estimate DECREASED (NORMAL) 04/08/20 15:16 Plt Morphology Comment NORMAL 04/08/20 15:16 RBC Morphology NOTED 04/08/20 15:16 Polychromasia 1+ 04/08/20 15:16 Microcytosis 1+ 04/08/20 15:16 Macrocytosis 3+ 04/08/20 15:16 Ovalocytes 1+ 04/08/20 15:16 Absolute Retic 0.124 X10*6/uL (0.026-0.095) H 04/08/20 15:16 Percent Retic 4.6 % (0.5-1.8) H 04/08/20 15:16 Immature Retic Fraction 17.4 % (3.0-15.9) H 04/08/20 15:16 Retic Hgb Equivalent 38.9 pg (30.0-35.0) H 04/08/20 15:16 Haptoglobin <8 mg/dL (43-212) L 04/08/20 15:16 Sodium 139 mmol/L (135-145) 07/10/20 13:20 Potassium 4.2 mmol/l (3.3-5.1) 07/10/20 13:20 Chloride 107 mmol/L (96-108) 07/10/20 13:20 Carbon Dioxide 27 mmol/L (22-29) 07/10/20 13:20 Anion Gap 9 (12-20) L 07/10/20 13:20 BUN 15 mg/dL (9-16) 07/10/20 13:20 Creatinine 0.91 mg/dL (0.5-1.4) 07/10/20 13:20 Estim Creat Clear Calc 71.7 07/10/20 13:20 Estimated GFR > 60 07/10/20 13:20 Random Glucose TNP 07/10/20 13:20 Fasting Glucose 115 mg/dL (60-99) H 07/10/20 13:20 Calcium 8.2 mg/dL (8.4-10.2) L 07/10/20 13:20 Iron 228 mcg/dL (30-160) H 04/08/20 15:15 TIBC < 245 mcg/dL (228-428) 04/08/20 15:15 % Saturation TNP 04/08/20 15:15 Unsat Iron Binding < 17 ug/dL 04/08/20 15:15 Erythropoietin 36.4 mIU/mL (2.6-18.5) H 04/08/20 15:16 Ferritin 423 ng/mL (10-250) H 04/08/20 15:15 Total Bilirubin 7.4 mg/dL (0.0-1.0) H 07/10/20 13:20 Direct Bilirubin 3.0 mg/dL (0.0-0.5) H 07/10/20 13:20 AST 68 U/L (5-31) H 07/10/20 13:20 ALT 29 U/L (0-31) 07/10/20 13:20 Alkaline Phosphatase 137 U/L (39-117) H D 07/10/20 13:20 Lactate Dehydrogenase 272 U/L (122-220) H 04/08/20 15:15 Total Protein 6.3 g/dL (6.5-8.0) L 07/10/20 13:20 Albumin 2.5 g/dL (3.5-5.0) L 07/10/20 13:20 Progress Note: A/P (1) Breast cancer, left Status: Acute Assessment and plan: Triple-negative Breast Carcinoma diagnosed November of 2013. She had mastectomy. Had one course of TC on 02/19/2014. She declined further therapy on account of toxicity. She had a PET scan done back in December,, which revealed: No abnormalities suspicious for recurrent or metastatic malignancy are noted. I referred her for occupational therapy for her right upper extremity lymphedema. She is under care of Gege Guevara. I also advised her to try Sigvera's stockings. She had a mammogram March 01 2019, which was benign. She also had a bone density, March 01, which was normal. She had a colonoscopy for surveillance, in November 2016 which was negative. Upper endoscopy done at the same time was benign as well. PLAN: She was due for her mammogram in February. However she was not able to go. Will reschedule once she is feeling a bit better. Vitamin D level came back really low at 10, [place] [address] [place] x8. She will now take the daily 2000 micro g dose. She was advised to indulge in healthy lifestyle, nutritious diet and exercise program. She will return in 1 month for a followup visit. Thank you, CC: Fernando Lau. Dr. Lurdes Isaac. Copies To: [facility] [employer]; ANNA MEDELLIN MD (2) Cirrhosis of liver with ascites Status: Acute Assessment and plan: PT 22.6, INR 2.2. She has had some GI symptoms. Ultrasound of the abdomen revealed: hydropic gallbladder, with concern for cystic duct obstruction. She had a HIDA scan on April 12 which revealed: Normal biliary scan. Visualization of the gallbladder is evidence of a patent cystic duct and strong evidence against the diagnosis of acute cholecystitis. The common bile duct is patent. Liver function appears normal. She had a repeat ultrasound in December 13 which revealed: GALLBLADDER: The gallbladder is physiologically distended. Multiple mobile gallstones are present. No evidence of gallbladder wall thickening or pericholecystic fluid. COMMON BILE DUCT: Normal in caliber measuring 0.4 cm in diameter. Echogenic liver consistent with hepatic parenchymal disease. Tiny cyst head of pancreas. Follow-up is recommended. Small number of perisplenic varices. History of liver disease: Cirrhosis is complicated by portal hypertension with thrombocytopenia and varices in the splenic hilum on imaging studies. Meld score is 14. 06/2017 LIVER FIBROSIS SCORE OF 0.9, LIVER FIBROSIS STAGE F4, NECROINFLAMMATORY SCORE 0.20 Patient was diagnosed with autoimmune hepatitis in the past in treated with azathioprine for 4-5 years. She stopped this on her own due to concern for increased cancer risk after she was diagnosed with breast cancer. Patient was referred to GI due to an increase in her liver function tests recently. Liver biopsy report was reviewed and was not conclusive for autoimmune hepatitis. Pt had mild elevation of ASMA(23) and gamma globulin of 2.0. Patient was started on a trail of Prednisone 40 mg daily and stopped after 1 day since she developed MRSA bacteremia of unclear source. Echo showed no vegetation, MRI of back no new abscess or diskitis. ID recommended IV Vanco for total 4 weeks.. Repeat blood cultures were negative. She was on Vancomycin.. On follow-up, Pt did not wish to resume Prednisone treatment. Pt complains of abdominal distension and worsening lower extremity edema raising concern for progressive liver disease with ascites. Urgent abd US scheduled on 06/27/20. Pt was advised to start spironolactone 50 mg daily and increase furosemide to 40 mg daily after abdominal US. HCC SURVEILLANCE: the patient is at risk of developing hepatocellular carcinoma given the presence of cirrhosis and need 6 monthly imaging surveillance with either abdominal ultrasound (US) or multiphase cross-sectional imaging (CT or MRI). Last Abd US in 11/2019 had shown no focal liver lesions suspicious of HCC. CAT Scan of Abdomen: Shrunken, nodular liver suggesting cirrhosis. There are extensive varices with innumerable splenic varices, and a likely splenorenal shunt. There are para esophageal, gastric and abdominal varices. Although there is a contrast opacified vessel in the willard hepatis, which could represent the main portal vein, there are additional varices present. Moreover, the main portal vein is actually smaller in calliber than the portal vein. 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 Moderate ascites. Pleural effusions. Anasarca. PLAN: She will be scheduled for follow-up liver ultrasound for ongoing surveillance. After completion of additional labs, she will be referred to [facility] for evaluation for a Liver Transplant. She has had a tele visit with Dr. Bailey. She has an actual appointment on July 21. She will return in a month for a follow up visit. Thanks, (3) Colon cancer Status: Acute Assessment and plan: 70-year-old lady with a history of: Sigmoid Colonic Carcinoma diagnosed in December of 2013. T1, N0, M0. Status post hemicolectomy. No adjuvant therapy was needed. PLAN: She just had a surveillance colonoscopy by Dr. Zimmerman, last week which was negative. - Time Spent With Patient Total time spent is greater than 50% in coordination of care (as documented) at patient's floor/unit and/or counseling patient: 25 - 35 minutes
[2020-07-10 14:13] LABS: Vitamin D 25-OH Total 11.8 ng/mL (>30)
[2020-07-10 14:35] LABS: INTERNATIONAL NORM RATIO 2.2 (0.9-1.1); Prothrombin Time 26.6 SEC (10.8-13.0)
--- NOTE | 2020-07-10 15:33 | MHC.HEMONC ---
Pt here for follow up with Dr Jacob. Was recently hospitalized. Has some edema of her hands and feet. States her stomach feels bloated at times. Dr Jacob in.
[2020-07-11 12:57] LABS: CA 27.29 59 U/mL (<38)
--- NOTE | 2020-10-03 15:51 | MHC.HEMONCSW ---
DR. 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 REFERRAL GIVEN BOTH VERBALLY AND BY FAX TO LILIANE AT [facility]. ANTICIPATED START DATE IS NEXT TUESDAY.
--- NOTE | 2020-10-09 08:45 | HO.HEMONCTE1 ---
Hem/Onc Clinic Telehealth - Telehealth Location of Provider rendering services: hem/onc office. Location of Patient: home. Patient Identification confirmed using: Name, : Yes Telehealth Method: Via Telephone. Patient verbally consented to treatment: Yes. Patient verbally consented to billing insurance company: Yes Patient informed of any privacy concerns related to visit: Yes Medical Summary - Medical Summary Date of Service: 10/09/20 Chief complaint: F/U for: 1. Breast cancer. 2.Colon Cancer.3.ES Liver Disease. AI hepatitis Medical Summary: DIAGNOSIS: 1. Breast cancer, right breast. 2. Cancer of sigmoid colon. 3. Cirrhosis of Liver. . Interval History Interval history: This is a pleasant 69-year-old lady, with whom a tele visit was held. She tells me she has not been doing well at all. She was recently in house on 09/22. For encephalopathy and worsening fluid retention. Over the previous 2 to 3 weeks, she noticed worsening abdominal distention and bilateral lower extremity edema. She has been using her Lasix once daily and spironolactone and taking lactulose twice daily, but despite of that, she noticed that the edema was worsening and she is not moving bowels on a regular basis. She denies any associated fever or chills. No nausea, vomiting, or diarrhea. She denies any sick contacts. She never had paracentesis in the past. During her hospitalization in June of 2020, paracentesis was attempted, but there was not enough fluid to be drained. In the emergency room due to significant respiratory distress, the patient underwent bedside paracentesis and 3.3 L of fluid was removed. The patient had a negative ultrasound of bilateral lower extremities. In the ER, the patient also treated with 25% albumin, lactulose, 1 g of ceftriaxone for SBP prophylaxis and 1 dose of IV Lasix. patient felt significantly better with less abdominal discomfort. ROS: She feels extremely fatigued. She has had moderate edema in her feet. He denies headaches no dizziness. She has no chest pain but has trouble breathing on minimal exertion. She can barely walk to the bathroom or kitchen. She denies any abdominal pain nor right upper quadrant pain. She gets occasional nausea after eating, but no vomiting. Her abdomen is rather distended and tense. Her bowels are moving without any gross blood in it. Sometimes she gets constipated even if she has to omit 1 dose of lactulose. She has not had a good appetite. She has gained some weight. Likely from fluid retention. Weight is 218 lb which has gone up. She has changed her diet, she is mostly eating a vegetarian diet. No easy bruising nor systemic bleeding. Her spirits are down. Rest of the review of systems is unremarkable. In view of her diagnoses she is staying home, with her . Previous history 1: She was admitted to the hospital back in mid June. Patient presented to the hospital because of ascites/edema and shortness of breath. She was started on IV diuretics. Shortness of breath seems improved. A paracentesis was tried but there was not enough fluid to drain. Seen by GI: Dr. Zimmerman: Patient was diuresed well and symptomatic seemed better. She was sent home on Lasix and spironolactone, in addition to the lactulose. Upper endoscopy: Stomach: Moderate diffuse portal gastropathy with a few small old clots in the stomach. A few 2-3 mm antral erosions - biopsies were obtained. Grade 2 flap valve and no gastric varices noted on retroflexed examination of the cardia. Duodenum: Normal bulb and descending duodenum Biopsies: Corpus mucosa with lamina propria edema and mild chronic inactive gastritis. Negative for intestinal metaplasia, dysplasia and carcinoma. H pylori I: negative. Colonoscopy: Cecum: Normal Ascending Colon: Normal Transverse Colon: Normal Descending Colon: Normal Sigmoid Colon: Moderate diverticulosis Rectum: Normal Ano-rectum: Normal Colon preparation: Good after copious irrigation Previous history 2: She was admitted back in mid December: With history of fever, and altered mentation, weakness and lethargy on my exam of the patient she is alert oriented x3. She reports that she was sleeping and when she was woken by her she was slightly confused but is now fully aware of her surroundings and why she is in the hospital. She reported having chills for about a week as well as frequency, urinary urgency with no dysuria. Reported decreased urine output despite being on lasix. She denied having any cough or sputum production. She denies having any chest pain. She reports she has been constipated. She also complains of swelling in her leg although denies having any shortness of breath. On exam, patient did appear to be short of breath on talking but when asked multiple times about shortness of breath she denied. Denied orthopnea and PND. She reported that she takes Lasix for her lower extremity swelling and denies having history of heart failure. On arrival to the ED patient had a fever of 101.7 other vitals significant for heart rate of 106. Labs significant for lactic acid of 2.3, WBC count of 15.3, hemoglobin of 10, total bili of 4.1, direct bili of 2.1, AST of 118, ALT of 47, alk-phos of 118, LDH of 325, tropes of 323, C-reactive protein of 3.4, BNP of 380. COURSE: This patient immunocompromised with MARTEL presented with fever, confusion. work up revealed: MRSA bactereamia of unclear source. Echo shows no vegetation, MRI of back new no abscess or diskitis. ID recommend IV Vanco for total 4 weeks. Repeat blood cultures negative. She went home with home infusion for Vancomycin. She mentions that she has been anemic over the past couple of months. on 02/19 hemoglobin was 9.8 / HCT 29.8. MCV 109.6. PLT 92. On 03/17: HGB 9.9 HCT 30 PLT 104. After going home, initially she could not even walk. 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 . Review of Systems - Constitutional Reports no additional constitutional complaints, Reports lack of energy, Reports malaise, Reports weight gain - Eyes Reports no additional eye complaints - ENT Reports no additional ear, nose, mouth, and throat complaints - Cardiovascular Reports no additional cardiovascular complaints - Respiratory Reports no additional respiratory complaints, Reports dyspnea, Reports dyspnea on exertion - Gastrointestinal Reports no additional gastrointestinal complaints, Reports bloating, Reports constipation, Reports nausea - Genitourinary Reports no additional female genitourinary complaints - Musculoskeletal Reports no additional musculoskeletal complaints - Integumentary/Breasts Skin/Breast: Reports no additional skin complaints - Neurologic Reports no additional neurologic complaints, Reports weakness - Psychiatric Reports no additional psychiatric complaints - Endocrine Reports no additional endocrine complaints - Hematologic/Lymphatic Reports no additional hematologic/lymphatic complaints - Allergic/Immunologic Reports no additional allergic/immunologic complaints Oncology Screenings - ECOG Performance Status ECOG Performance Status: 1 Home Medications and Allergies Home Medications Medication Instructions Recorded Confirmed Type cholecalciferol (vitamin D3) 25 25 mcg PO DAILY 06/26/20 10/02/20 History mcg (1,000 unit) tablet mecobalamin (vitamin B12) 1,000 1,000 mcg PO DAILY 06/26/20 10/02/20 History mcg chewable tablet multivitamin 1 tab PO DAILY 06/26/20 10/02/20 History Xifaxan 550 mg PO BID 09/22/20 10/09/20 History spironolactone 100 mg PO DAILY 09/22/20 10/09/20 History Allergies Allergy/AdvReac Type Severity Reaction Status Date / Time Sulfa (Sulfonamide Allergy Intermediate Itching Verified 10/02/20 15:24 Antibiotics) [SULFA (SULFONAMIDE ANTIBIOTICS)] Omeprazole Allergy Unknown Coughing Uncoded 07/10/20 10:15 steroids Allergy Unknown hallucinations, Uncoded 07/10/20 10:15 mouth sores STEROIDS AdvReac Severe HALLUCINATI Uncoded 07/10/20 10:15 ONS/NAUSEA/ DIZZINESS Certain chemo medication AdvReac Unknown Hospitalize Uncoded 07/10/20 10:15 d Exam Vital signs: Vital Signs Temp 98.6 F 07/10/20 13:25 Pulse 95 07/10/20 13:25 Resp 18 07/10/20 13:25 BP 143/64 H 07/10/20 13:25 Pulse Ox 97 07/10/20 13:25 Weight 105.6 kg Body Mass Index 37.5 - Constitutional Present: no acute distress - Routine HEENT Exam Head: Present: normal inspection - Routine Neck Exam Present: full ROM - Routine Respiratory Exam Present: CTAB - Routine Cardiovascular Exam Cardiovascular: Present: RRR, S1, S2 - Routine Abdominal Exam Present: soft, nontender - Routine Rectal Exam Patient deferred: digital exam - Routine Extremities Exam Present: nontender - Routine Back/Spine/Pelvis Exam Back/Spine: Present: full ROM - Routine Skin Exam Present: intact - Routine Neurological Exam Present: alert, oriented X3, vision grossly intact. Absent: asterixis - Routine Psychiatric Exam Present: normal affect Data - Labs CBC & Chem 7: 07/10/20 13:20 07/10/20 13:20 Labs: 04/08/20 15:15 Ferritin Routine IRON PROFILE Routine Lactate Dehydrogenase Routine 04/08/20 15:16 CMP [Comprehensive Met. Panel] Routine Complete Blood Count Man Dif Routine Erythropoietin (EPO) Routine Haptoglobin Routine Reticulocyte Count Routine Laboratory Last Values WBC 7.6 X10*3/uL (4.8-10.8) 07/10/20 13:20 RBC 2.60 X10*6/uL (4.20-5.50) L 07/10/20 13:20 Hgb 9.4 g/dl (12.0-16.0) L 07/10/20 13:20 Hct 28.7 % (37-47) L 07/10/20 13:20 MCV 110.4 fL (80-98) H 07/10/20 13:20 MCH 36.2 pg (27.0-33.0) H 07/10/20 13:20 MCHC 32.8 g/dl (31.0-35.0) 07/10/20 13:20 RDW 15.8 % (11.0-16.0) 07/10/20 13:20 Plt Count 97 X10*3/uL (160-400) L 07/10/20 13:20 MPV 10.1 fL (9.4-12.3) 07/10/20 13:20 Immature Gran % (Auto) 0.7 % (0.0-0.4) H 07/10/20 13:20 Neut % (Auto) 54.4 % (45-73) 07/10/20 13:20 Lymph % (Auto) 24.7 % (20-40) 07/10/20 13:20 [place] % (Auto) 17.1 % (2-11) H 07/10/20 13:20 Eos % (Auto) 2.2 % (0-4) 07/10/20 13:20 Baso % (Auto) 0.9 % (0-2) 07/10/20 13:20 Lymph # (Auto) 1.9 X10*3/uL (1.2-4.9) 07/10/20 13:20 [place] # (Auto) 1.3 X10*3/uL (0.1-1.2) H 07/10/20 13:20 Eos # (Auto) 0.2 X10*3/uL (0.0-0.4) 07/10/20 13:20 Baso # (Auto) 0.1 X10*3/uL (0.0-0.2) 07/10/20 13:20 Abs Immat Gran (auto) 0.05 X10*3/uL (0.00-0.03) H 07/10/20 13:20 Absolute Neuts (auto) 4.2 X10*3/uL (2.0-8.3) 07/10/20 13:20 Absolute Nucleated RBC 0.000 X10*3/uL (0.0-0.012) 07/10/20 13:20 Nucleated RBC % (auto) 0.0 /100WBC (0.0-0.2) 07/10/20 13:20 Neutrophils % (Manual) 64 % (45-73) 04/08/20 15:16 Band Neutrophils % 0 % (3-5) L 04/08/20 15:16 Lymphocytes % (Manual) 19 % (20-40) L 04/08/20 15:16 Monocytes % (Manual) 7 % (2-11) 04/08/20 15:16 Eosinophils % (Manual) 5 % (0-4) H 04/08/20 15:16 Basophils % (Manual) 3 % (0-1) H 04/08/20 15:16 Metamyelocytes % 2 % 04/08/20 15:16 Abs Neuts (Manual) 3.8 X10*3/uL (2.2-7.9) 04/08/20 15:16 Lymphocytes # (Manual) 1.1 X10*3/uL (0.6-4.8) 04/08/20 15:16 Monocytes # (Manual) 0.4 X10*3/uL (0.0-1.2) 04/08/20 15:16 Eosinophils # (Manual) 0.3 X10*3/UL (0.0-0.8) 04/08/20 15:16 Basophils # (Manual) 0.2 X10*3/uL (0.0-0.3) 04/08/20 15:16 Metamyelocytes # 0.1 X10*3/uL 04/08/20 15:16 Platelet Estimate DECREASED (NORMAL) 04/08/20 15:16 Plt Morphology Comment NORMAL 04/08/20 15:16 RBC Morphology NOTED 04/08/20 15:16 Polychromasia 1+ 04/08/20 15:16 Microcytosis 1+ 04/08/20 15:16 Macrocytosis 3+ 04/08/20 15:16 Ovalocytes 1+ 04/08/20 15:16 Absolute Retic 0.124 X10*6/uL (0.026-0.095) H 04/08/20 15:16 Percent Retic 4.6 % (0.5-1.8) H 04/08/20 15:16 Immature Retic Fraction 17.4 % (3.0-15.9) H 04/08/20 15:16 Retic Hgb Equivalent 38.9 pg (30.0-35.0) H 04/08/20 15:16 Haptoglobin <8 mg/dL (43-212) L 04/08/20 15:16 Sodium 139 mmol/L (135-145) 07/10/20 13:20 Potassium 4.2 mmol/l (3.3-5.1) 07/10/20 13:20 Chloride 107 mmol/L (96-108) 07/10/20 13:20 Carbon Dioxide 27 mmol/L (22-29) 07/10/20 13:20 Anion Gap 9 (12-20) L 07/10/20 13:20 BUN 15 mg/dL (9-16) 07/10/20 13:20 Creatinine 0.91 mg/dL (0.5-1.4) 07/10/20 13:20 Estim Creat Clear Calc 71.7 07/10/20 13:20 Estimated GFR > 60 07/10/20 13:20 Random Glucose TNP 07/10/20 13:20 Fasting Glucose 115 mg/dL (60-99) H 07/10/20 13:20 Calcium 8.2 mg/dL (8.4-10.2) L 07/10/20 13:20 Iron 228 mcg/dL (30-160) H 04/08/20 15:15 TIBC < 245 mcg/dL (228-428) 04/08/20 15:15 % Saturation TNP 04/08/20 15:15 Unsat Iron Binding < 17 ug/dL 04/08/20 15:15 Erythropoietin 36.4 mIU/mL (2.6-18.5) H 04/08/20 15:16 Ferritin 423 ng/mL (10-250) H 04/08/20 15:15 Total Bilirubin 7.4 mg/dL (0.0-1.0) H 07/10/20 13:20 Direct Bilirubin 3.0 mg/dL (0.0-0.5) H 07/10/20 13:20 AST 68 U/L (5-31) H 07/10/20 13:20 ALT 29 U/L (0-31) 07/10/20 13:20 Alkaline Phosphatase 137 U/L (39-117) H D 07/10/20 13:20 Lactate Dehydrogenase 272 U/L (122-220) H 04/08/20 15:15 Total Protein 6.3 g/dL (6.5-8.0) L 07/10/20 13:20 Albumin 2.5 g/dL (3.5-5.0) L 07/10/20 13:20 Progress Note: A/P (1) Breast cancer, left Status: Acute Assessment and plan: This is a pleasant 70-year-old lady with a history of Triple-negative Breast Carcinoma diagnosed November of 2013. She had mastectomy. Had one course of TC on 02/19/2014. She declined further therapy on account of toxicity. She had a PET scan done back in December,, which revealed: No abnormalities suspicious for recurrent or metastatic malignancy are noted. I referred her for occupational therapy for her right upper extremity lymphedema. She was under care of Gege Guevara. I also advised her to try Sigvera's stockings. She had a mammogram March 01 2019, which was benign. She also had a bone density, March 01, which was normal. She had a colonoscopy for surveillance, in November 2016 which was negative. Upper endoscopy done at the same time was benign as well. She had her mammogram on 08/11/2020. It revealed: No mammographic evidence of malignancy. ASSESSMENT: BI-RADS 1: Negative Vitamin D level came back really low at 10, [place] [address] units [place] x8. She completed that. She is now taking the daily 2000 micro g dose. PLAN: She was advised to indulge in healthy lifestyle, nutritious diet and exercise program. She will return in 1 month for a followup visit. Thank you, CC: Alex Lau. Dr. Zimmerman. (2) Cirrhosis of liver with ascites Status: Acute Assessment and plan: Database: PT 22.6, INR 2.2. From 10/08: CBC: WBC 6.3, HGB 10, HCT 30.7, PLT 111. CMP: Na 130, K 4.7, Cl 99, CO2 24, GLU 115, BUN 30, TIME STUDY ANALYST 1.24. LFTs: 7.9/158/56/23. NH3:103. She has had chronic GI symptoms. Ultrasound of the abdomen revealed: hydropic gallbladder, with concern for cystic duct obstruction. She had a HIDA scan on April 12 which revealed: Normal biliary scan. Visualization of the gallbladder is evidence of a patent cystic duct and strong evidence against the diagnosis of acute cholecystitis. The common bile duct is patent. Liver function appears normal. She had a repeat ultrasound in December 13 which revealed: GALLBLADDER: The gallbladder is physiologically distended. Multiple mobile gallstones are present. No evidence of gallbladder wall thickening or pericholecystic fluid. COMMON BILE DUCT: Normal in caliber measuring 0.4 cm in diameter. Echogenic liver consistent with hepatic parenchymal disease. Tiny cyst head of pancreas. Follow-up is recommended. Small number of perisplenic varices. This is an unfortunate 70-year-old lady, now with end-stage liver disease awaiting transplant. History of liver disease: Cirrhosis is complicated by portal hypertension with thrombocytopenia and varices in the splenic hilum on imaging studies. Meld score is 14. 06/2017 LIVER FIBROSIS SCORE OF 0.9, LIVER FIBROSIS STAGE F4, NECROINFLAMMATORY SCORE 0.20 Patient was diagnosed with autoimmune hepatitis in the past in treated with azathioprine for 4-5 years. She stopped this on her own due to concern for increased cancer risk after she was diagnosed with breast cancer. Patient was referred to GI due to an increase in her liver function tests recently. Liver biopsy report was reviewed and was not conclusive for autoimmune hepatitis. Pt had mild elevation of ASMA(23) and gamma globulin of 2.0. Patient was started on a trail of Prednisone 40 mg daily and stopped after 1 day since she developed MRSA bacteremia of unclear source. Echo showed no vegetation, MRI of back no new abscess or diskitis. ID recommended IV Vanco for total 4 weeks.. Repeat blood cultures were negative. She was on Vancomycin.. On follow-up, Pt did not wish to resume Prednisone treatment. However she did resume after an interval. Pt developed abdominal distension and worsening lower extremity edema raising concern for progressive liver disease with ascites. Urgent abd US scheduled on 06/27/20. Pt was advised to start spironolactone 50 mg daily and increase furosemide to 40 mg daily after abdominal US. HCC SURVEILLANCE: the patient is at risk of developing hepatocellular carcinoma given the presence of cirrhosis and need 6 monthly imaging surveillance with either abdominal ultrasound (US) or multiphase cross-sectional imaging (CT or MRI). Last Abd US in 11/2019 had shown no focal liver lesions suspicious of HCC. CAT Scan of Abdomen: Shrunken, nodular liver suggesting cirrhosis. There are extensive varices with innumerable splenic varices, and a likely splenorenal shunt. There are para esophageal, gastric and abdominal varices. Although there is a contrast opacified vessel in the willard hepatis, which could represent the main portal vein, there are additional varices present. Moreover, the main portal vein is actually smaller in calliber than the portal vein. 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 Moderate ascites. Pleural effusions. Anasarca. She will be scheduled for follow-up liver ultrasound for ongoing HCC surveillance. After completion of additional labs, she has been referred to the [facility] for a Liver Transplant. She is under the care of Dr. Lynn Walker, a transplant mill[employer]. They are currently doing a donor search. Meanwhile she is being managed with diuretics for edema/ascites and lactulose and Xifaxan for the encephalopathy Overall her condition has been deteriorating. She is very fatigued. She can hardly walk. Only goes to the bathroom or kitchen. Even with that she gets short of breath very quickly. She has massive edema feet. Her she has tense ascites. She did have a paracentesis done 3 weeks ago in the emergency room. Ammonia level is elevated at 103. PLAN: I will refer her to Vic[facility] MA[facility] for helping manage the above problems. Monitoring vital signs and weight. Monitoring for encephalopathy and ascites. Medication management. Lab draws at home. Helping her with ADLs including shower and meals. And other needs that may come up. With everything else going on her has recently been diagnosed with lung cancer and he is undergoing chemotherapy right now. She will return in 3 months for a follow up visit, however the [facility] will be following her closely and keeping me updated. 35 minutes were spent coordinating her care including the tele visit. Review of labs, review of imaging, counseling the patient and making referrals. Thanks, (3) Colon cancer Status: Inactive Assessment and plan: 70-year-old lady with a history of: Sigmoid Colonic Carcinoma diagnosed in December of 2013. T1, N0, M0. Status post hemicolectomy. No adjuvant therapy was needed. PLAN: She just had a surveillance colonoscopy by Dr. Zimmerman, few months ago, which was negative. - Time Spent With Patient Total time spent is greater than 50% in coordination of care (as documented) at patient's floor/unit and/or counseling patient: 25 - 35 minutes
--- NOTE | 2020-10-09 10:04 | MHC.HEMONCMA ---
Pt had a televisit today to f/u on breast cancer, anemia and thrombocytopenia. History was reviewed prior to transferring call to provider. Also, lactuose refill was requested from GI.
--- NOTE | 2020-10-21 14:02 | MHC.HEMONC ---
Dr Tobias office called with critical potassium 6.0. Pt called and gave us her PCP name - Dr Zimmerman (GI). Lab to forward results to her per Dr Jacob.
== END | disposition home or self-care (01) ==
LOC: HO.ONC 04-08 14:02
PROVIDERS: Internal Medicine; PCP Nurse Practitioner Family; Visit Provider Internal Medicine Medical Oncology
DX: Z85.3 Personal history of malignant neoplasm of breast (principal); Z85.038 Personal history of other malignant neoplasm of large intestine; D64.9 Anemia, unspecified; E55.9 Vitamin D deficiency, unspecified; K74.60 Unspecified cirrhosis of liver; R18.8 Other ascites; Z90.11 Acquired absence of right breast and nipple
CPT/HCPCS: 36415; 80048; 80053; 80076; 82248; 82306; 82378; 82668; 82728; 83010; 83540; 83615; 85007; 85025; 85027; 85045; 85060; 85610; 86300; 99214; Q3014